=== PATIENT | male | born 1955 | race Caucasian/White ===

== ENCOUNTER 2020-09-25 19:11 | Inpatient (IN) | payer OTHER ==
[2020-09-25 19:39] VITALS: BMI 27.4
[2020-09-25] MEDS ORDERED: oxyCODONE HCL 5 MG TABLET PO ONE (22:07)
[2020-09-25] MEDS ORDERED: oxyCODONE HCL 5 MG TABLET ONE (22:23)
[2020-09-25 22:33] LABS: BASO % 0.1 % (0-2.0); EOS % 0.1 % (0-4.5); HEMATOCRIT 23.1 % (35.4-49); LYMPH % 10.3 % (8-40); MCHC 34.5 g/dl (32.0-35.9); MEAN CELL VOLUME 104.1 fl (80-96); MEAN PLT VOLUME 9.4 fl (7.5-11.1); MONO % 14.8 % (3.8-10.2); NEUT % 74.7 % (42.8-82.8); PLATELET COUNT 60 K/MM3 (134-434); RBC 2.22 M/mm3 (4.00-5.60); RDW 12.9 % (11.9-15.9); WHITE BLOOD COUNT 4.3 K/mm3 (4.0-10.0)
[2020-09-25 22:40] LABS: INR 1.08 (0.83-1.09); PROTHROMBIN TIME (PATIENT) 13.2 SEC (9.7-13.0)
[2020-09-25 22:42] LABS: ACTIVATED PTT 28.6 SECONDS (25.2-36.5)
[2020-09-25 22:51] LABS: URINE APPEARANCE Clear; URINE BILIRUBIN Negative (NEGATIVE); URINE COLOR Yellow; URINE GLUCOSE (UA) Negative (NEGATIVE); URINE KETONE Negative (NEGATIVE); URINE LEUK ESTERASE Negative (NEGATIVE); URINE NITRITE Negative (NEGATIVE); URINE PROTEIN Negative (NEGATIVE); URINE UROBILINOGEN 0.2 mg/dL (0.2-1.0)
[2020-09-25 22:53] LABS: POTASSIUM 4.5 mmol/L (3.5-5.1)
[2020-09-25 22:54] LABS: CALCIUM 8.7 mg/dL (8.5-10.1)
[2020-09-25 22:55] LABS: ALBUMIN 3.7 g/dl (3.4-5.0); BLOOD UREA NITROGEN 51.4 mg/dL (7-18)
[2020-09-25 22:59] LABS: CREATININE 1.7 mg/dL (0.55-1.3)
[2020-09-25 23:00] LABS: BILIRUBIN,TOTAL 1.4 mg/dL (0.2-1); TOT PROT 6.2 g/dl (6.4-8.2)
[2020-09-25 23:04] LABS: EPI CELLS 4.3 /uL (0-25.1); URINE RBC 8.2 /uL (0-23.9)
[2020-09-25 23:05] LABS: HYALINE CASTS 1.15 /uL (0-3.1)
[2020-09-25] MEDS ORDERED: LACTATED RINGERS SOLUTION 1000 ML INFUS.BAG IV ONE ×2 (23:07→23:08)
[2020-09-25] MEDS ORDERED: ASPIRIN 81 MG CHEWABLE TABLETS PO ONE (23:18)
[2020-09-25] MEDS ORDERED: ASPIRIN 81 MG CHEWABLE TABLETS ONE (23:19)
[2020-09-25 23:21] LABS: PLATELET ESTIMATE MOD DECREASED
[2020-09-26] MEDS ORDERED: ACETAMINOPHEN 1000 MG/100 ML VIAL (NON FORMULARY) IVPB PRN (01:10)
[2020-09-26] MEDS ORDERED: oxyCODONE HCL 5 MG TABLET ONE ×3 (06:03→18:42)
[2020-09-26] MEDS: oxyCODONE HCL 5 MG TABLET PO PRN ×2 (06:06→18:45)
[2020-09-26] MEDS: INSULIN SLIDING SCALE (NOVOLOG) 1 VIAL SQ SCH ×3 (08:11→17:54)
[2020-09-26] MEDS: SODIUM CHLORIDE 1,000 ML IV SCH (17:54)
[2020-09-26] MEDS ORDERED: risperiDONE 0.5 MG TABLET ONE (21:26)
[2020-09-26] MEDS ORDERED: ATORVASTATIN CA 10 MG TABLET (FP) ONE (21:26)
[2020-09-26] MEDS: risperiDONE 2 MG TABLET PO SCH (21:47)
[2020-09-26] MEDS: INSULIN (LEVEMIR) 100 UNITS/ML UNITS SQ SCH (21:47)
[2020-09-26] MEDS: ATORVASTATIN CA 10 MG TABLET (FP) PO SCH (21:48)
[2020-09-26] MEDS: URSODIOL 300 MG CAPSULE PO SCH (21:48)
[2020-09-27] MEDS ORDERED: oxyCODONE HCL 5 MG TABLET ONE (01:48)
[2020-09-27] MEDS: oxyCODONE HCL 5 MG TABLET PO PRN ×2 (01:55→22:08)
[2020-09-27] MEDS: INSULIN (LEVEMIR) 100 UNITS/ML UNITS SQ SCH ×2 (06:20→22:15)
[2020-09-27] MEDS: INSULIN SLIDING SCALE (NOVOLOG) 1 VIAL SQ SCH ×3 (06:22→17:11)
[2020-09-27] MEDS ORDERED: TAMSULOSIN HCL 0.4 MG CAP ONE (08:03)
[2020-09-27] MEDS ORDERED: risperiDONE 0.5 MG TABLET ONE (08:03)
[2020-09-27 08:04] LABS: BASO % 0.1 % (0-2.0); EOS % 0.1 % (0-4.5); HEMOGLOBIN 7.5 GM/dL (11.7-16.9); LYMPH % 10.3 % (8-40); MCH 36.8 pg (25.7-33.7); MCHC 35.6 g/dl (32.0-35.9); MEAN CELL VOLUME 103.6 fl (80-96); MEAN PLT VOLUME 9.2 fl (7.5-11.1); MONO % 16.9 % (3.8-10.2); NEUT % 72.6 % (42.8-82.8); PLATELET COUNT 82 K/MM3 (134-434); RBC 2.03 M/mm3 (4.00-5.60); RDW 12.7 % (11.9-15.9); WHITE BLOOD COUNT 5.5 K/mm3 (4.0-10.0)
[2020-09-27] MEDS: risperiDONE 1 MG TABLET PO SCH ×2 (08:05→23:37)
[2020-09-27] MEDS: TAMSULOSIN HCL 0.4 MG CAP PO SCH (08:05)
[2020-09-27 08:20] LABS: POTASSIUM 4.9 mmol/L (3.5-5.1)
[2020-09-27 08:23] LABS: ALBUMIN 3.4 g/dl (3.4-5.0); BLOOD UREA NITROGEN 54.9 mg/dL (7-18)
[2020-09-27 08:24] LABS: CALCIUM 8.3 mg/dL (8.5-10.1); MAGNESIUM 2.1 mg/dL (1.8-2.4)
[2020-09-27 08:28] LABS: BILIRUBIN,TOTAL 1.6 mg/dL (0.2-1)
[2020-09-27 08:29] LABS: CREATININE 1.5 mg/dL (0.55-1.3)
[2020-09-27 08:31] LABS: TOT PROT 5.9 g/dl (6.4-8.2)
[2020-09-27] MEDS: ESCITALOPRAM OXALATE 10 MG TABLET PO SCH (10:29)
[2020-09-27] MEDS: URSODIOL 300 MG CAPSULE PO SCH ×2 (10:29→22:08)
[2020-09-27] MEDS: SODIUM CHLORIDE 1,000 ML IV SCH ×2 (16:53→22:10)
[2020-09-27] MEDS ORDERED: ACETAMINOPHEN 325 MG TABLET (FP) PO PRN (18:12)
[2020-09-27] MEDS ORDERED: PT OWN MED DRAWER 7, Y5N ONE (22:03)
[2020-09-27] MEDS: ATORVASTATIN CA 10 MG TABLET (FP) PO SCH (22:08)
[2020-09-27] MEDS: METOPROLOL TARTRATE 25 MG TABLET (FP) PO SCH (22:08)
[2020-09-27] MEDS ORDERED: risperiDONE 1 MG TABLET PO SCH (22:25)
[2020-09-27] MEDS: risperiDONE 2 MG TABLET PO SCH (22:58)
[2020-09-28] MEDS: INSULIN (LEVEMIR) 100 UNITS/ML UNITS SQ SCH ×2 (07:04→22:00)
[2020-09-28] MEDS: INSULIN SLIDING SCALE (NOVOLOG) 1 VIAL SQ SCH ×3 (07:04→17:13)
[2020-09-28 07:28] LABS: BASO % 0.1 % (0-2.0); EOS % 0.1 % (0-4.5); HEMATOCRIT 19.4 % (35.4-49); LYMPH % 9.5 % (8-40); MCH 36.9 pg (25.7-33.7); MCHC 35.8 g/dl (32.0-35.9); MEAN PLT VOLUME 8.6 fl (7.5-11.1); MONO % 12.5 % (3.8-10.2); NEUT % 77.8 % (42.8-82.8); PLATELET COUNT 102 K/MM3 (134-434); RBC 1.89 M/mm3 (4.00-5.60); RDW 12.7 % (11.9-15.9)
[2020-09-28 07:30] LABS: POTASSIUM 5.4 mmol/L (3.5-5.1)
[2020-09-28 07:36] LABS: CALCIUM 7.8 mg/dL (8.5-10.1)
[2020-09-28 07:37] LABS: BLOOD UREA NITROGEN 79.5 mg/dL (7-18)
[2020-09-28 07:40] LABS: CREATININE 2.3 mg/dL (0.55-1.3)
[2020-09-28 07:41] LABS: TOT PROT 5.4 g/dl (6.4-8.2)
[2020-09-28] MEDS ORDERED: PT OWN MED DRAWER 7, Y5N ONE (08:59)
[2020-09-28] MEDS: TAMSULOSIN HCL 0.4 MG CAP PO SCH (09:05)
[2020-09-28] MEDS: METOPROLOL TARTRATE 25 MG TABLET (FP) PO SCH ×2 (09:05→21:57)
[2020-09-28] MEDS: ESCITALOPRAM OXALATE 10 MG TABLET PO SCH (09:05)
[2020-09-28] MEDS: URSODIOL 300 MG CAPSULE PO SCH ×2 (09:05→21:57)
[2020-09-28] MEDS: risperiDONE 1 MG TABLET PO SCH ×2 (10:09→21:57)
[2020-09-28] MEDS: oxyCODONE HCL 5 MG TABLET PO PRN ×2 (12:06→18:47)
[2020-09-28] MEDS ORDERED: SODIUM POLYSTYRENE SULFONATE 15 GM/60 ML BOTTLE PO ONE (14:00)
[2020-09-28] MEDS ORDERED: IRON SUCROSE INJECTION 200 MG in SODIUM CHLORIDE 90 ML IVPB ONE (14:30)
[2020-09-28] MEDS: SILVER SULFADIAZINE 1% TOP CREAM 400 GM JAR TP SCH (16:13)
[2020-09-28] MEDS: SODIUM CHLORIDE 1,000 ML IV SCH (18:50)
[2020-09-28] MEDS: ATORVASTATIN CA 10 MG TABLET (FP) PO SCH (21:57)
[2020-09-29] MEDS: SODIUM CHLORIDE 1,000 ML IV SCH ×3 (05:44→18:27)
[2020-09-29] MEDS: oxyCODONE HCL 5 MG TABLET PO PRN ×2 (05:52→10:47)
[2020-09-29] MEDS: INSULIN (LEVEMIR) 100 UNITS/ML UNITS SQ SCH ×2 (06:03→22:29)
[2020-09-29] MEDS: INSULIN SLIDING SCALE (NOVOLOG) 1 VIAL SQ SCH ×3 (06:03→16:47)
[2020-09-29 08:12] LABS: POTASSIUM 4.4 mmol/L (3.5-5.1)
[2020-09-29 08:15] LABS: CALCIUM 7.5 mg/dL (8.5-10.1)
[2020-09-29 08:16] LABS: BLOOD UREA NITROGEN 84.5 mg/dL (7-18)
[2020-09-29 08:17] LABS: HEMATOCRIT 18.6 % (35.4-49); MCH 36.3 pg (25.7-33.7); MEAN CELL VOLUME 103.9 fl (80-96); MEAN PLT VOLUME 8.7 fl (7.5-11.1); PLATELET COUNT 102 K/MM3 (134-434); RBC 1.79 M/mm3 (4.00-5.60); RDW 12.8 % (11.9-15.9); WHITE BLOOD COUNT 6.5 K/mm3 (4.0-10.0)
[2020-09-29 08:19] LABS: CREATININE 1.7 mg/dL (0.55-1.3)
[2020-09-29 08:32] LABS: HEMOGLOBIN 6.5 GM/dL (11.7-16.9)
[2020-09-29] MEDS ORDERED: PT OWN MED DRAWER 7, Y5N ONE (08:34)
[2020-09-29] MEDS: TAMSULOSIN HCL 0.4 MG CAP PO SCH (08:39)
[2020-09-29] MEDS ORDERED: MULTIVIT-MINERALS ORAL LIQUID PO SCH (10:00)
[2020-09-29] MEDS: URSODIOL 300 MG CAPSULE PO SCH ×2 (10:47→22:26)
[2020-09-29] MEDS: METOPROLOL TARTRATE 25 MG TABLET (FP) PO SCH ×2 (10:47→22:28)
[2020-09-29] MEDS: ESCITALOPRAM OXALATE 10 MG TABLET PO SCH (10:47)
[2020-09-29] MEDS: risperiDONE 1 MG TABLET PO SCH ×2 (10:47→22:28)
[2020-09-29] MEDS: SILVER SULFADIAZINE 1% TOP CREAM 400 GM JAR TP SCH (10:49)
[2020-09-29] MEDS: ACETAMINOPHEN 325 MG TABLET (FP) PO PRN (22:26)
[2020-09-29] MEDS: ATORVASTATIN CA 10 MG TABLET (FP) PO SCH (22:26)
[2020-09-30] MEDS: oxyCODONE HCL 5 MG TABLET PO PRN ×2 (02:45→21:20)
[2020-09-30] MEDS: INSULIN (LEVEMIR) 100 UNITS/ML UNITS SQ SCH ×2 (06:52→21:24)
[2020-09-30] MEDS: INSULIN SLIDING SCALE (NOVOLOG) 1 VIAL SQ SCH ×3 (06:52→17:51)
[2020-09-30 09:26] LABS: POTASSIUM 4.1 mmol/L (3.5-5.1)
[2020-09-30 09:28] LABS: EOS % 0.2 % (0-4.5); HEMATOCRIT 19.7 % (35.4-49); LYMPH % 9.5 % (8-40); MCH 36.4 pg (25.7-33.7); MCHC 34.4 g/dl (32.0-35.9); MEAN CELL VOLUME 105.7 fl (80-96); MEAN PLT VOLUME 8.7 fl (7.5-11.1); MONO % 11.5 % (3.8-10.2); NEUT % 78.8 % (42.8-82.8); PLATELET COUNT 107 K/MM3 (134-434); RBC 1.87 M/mm3 (4.00-5.60); RDW 13.2 % (11.9-15.9)
[2020-09-30 09:30] LABS: ALBUMIN 2.4 g/dl (3.4-5.0); CALCIUM 7.9 mg/dL (8.5-10.1)
[2020-09-30 09:31] LABS: BLOOD UREA NITROGEN 65.3 mg/dL (7-18)
[2020-09-30 09:34] LABS: CREATININE 1.4 mg/dL (0.55-1.3)
[2020-09-30 09:35] LABS: BILIRUBIN,TOTAL 2.3 mg/dL (0.2-1); TOT PROT 5.1 g/dl (6.4-8.2)
[2020-09-30 09:41] LABS: HEMOGLOBIN 6.8 GM/dL (11.7-16.9)
[2020-09-30] MEDS ORDERED: SILVER SULFADIAZINE 1% TOP CREAM 400 GM JAR TP SCH (10:00)
[2020-09-30] MEDS: ESCITALOPRAM OXALATE 10 MG TABLET PO SCH (11:02)
[2020-09-30] MEDS: TAMSULOSIN HCL 0.4 MG CAP PO SCH (11:02)
[2020-09-30] MEDS: risperiDONE 1 MG TABLET PO SCH ×2 (11:02→20:27)
[2020-09-30] MEDS: URSODIOL 300 MG CAPSULE PO SCH ×2 (11:03→21:23)
[2020-09-30] MEDS: METOPROLOL TARTRATE 25 MG TABLET (FP) PO SCH ×2 (11:03→21:03)
[2020-09-30] MEDS: ACETAMINOPHEN 325 MG TABLET (FP) PO PRN ×2 (12:38→21:22)
[2020-09-30] MEDS: COLLAGENASE CLOSTRIDIUM HIST. 30 GRAMS TUBE TP SCH (12:39)
[2020-09-30] MEDS ORDERED: IRON SUCROSE INJECTION 200 MG in SODIUM CHLORIDE 90 ML IVPB ONE (17:00)
[2020-09-30] MEDS: MULTIVIT-MINERALS ORAL LIQUID PO SCH (17:49)
[2020-09-30] MEDS: SODIUM CHLORIDE 1,000 ML IV SCH (17:52)
[2020-09-30] MEDS: ATORVASTATIN CA 10 MG TABLET (FP) PO SCH (21:03)
[2020-10-01] MEDS: ACETAMINOPHEN 325 MG TABLET (FP) PO PRN ×2 (03:48→23:10)
[2020-10-01] MEDS: oxyCODONE HCL 5 MG TABLET PO PRN ×2 (03:50→13:49)
[2020-10-01] MEDS: INSULIN (LEVEMIR) 100 UNITS/ML UNITS SQ SCH ×2 (06:23→21:53)
[2020-10-01] MEDS: INSULIN SLIDING SCALE (NOVOLOG) 1 VIAL SQ SCH ×3 (07:51→17:28)
[2020-10-01 07:52] LABS: HEMATOCRIT 18.1 % (35.4-49); HEMOGLOBIN 6.3 GM/dL (11.7-16.9); MCHC 34.9 g/dl (32.0-35.9); MEAN CELL VOLUME 103.2 fl (80-96); MEAN PLT VOLUME 8.1 fl (7.5-11.1); PLATELET COUNT 124 K/MM3 (134-434); RBC 1.75 M/mm3 (4.00-5.60); RDW 12.9 % (11.9-15.9)
[2020-10-01 08:23] LABS: WHITE BLOOD COUNT 7.7 K/mm3 (4.0-10.0)
[2020-10-01] MEDS: COLLAGENASE CLOSTRIDIUM HIST. 30 GRAMS TUBE TP SCH (10:00)
[2020-10-01] MEDS: TAMSULOSIN HCL 0.4 MG CAP PO SCH (10:06)
[2020-10-01] MEDS: METOPROLOL TARTRATE 25 MG TABLET (FP) PO SCH ×2 (10:06→21:46)
[2020-10-01] MEDS: ESCITALOPRAM OXALATE 10 MG TABLET PO SCH (10:06)
[2020-10-01] MEDS: risperiDONE 1 MG TABLET PO SCH (10:06)
[2020-10-01] MEDS: MULTIVIT-MINERALS ORAL LIQUID PO SCH (10:07)
[2020-10-01] MEDS: URSODIOL 300 MG CAPSULE PO SCH ×2 (10:07→21:42)
[2020-10-01] MEDS: SODIUM CHLORIDE 1,000 ML IV SCH ×2 (14:05→21:41)
[2020-10-01] MEDS: ATORVASTATIN CA 10 MG TABLET (FP) PO SCH (21:42)
[2020-10-02] MEDS: INSULIN (LEVEMIR) 100 UNITS/ML UNITS SQ SCH ×2 (06:13→22:18)
[2020-10-02] MEDS: INSULIN SLIDING SCALE (NOVOLOG) 1 VIAL SQ SCH ×3 (06:13→17:00)
[2020-10-02 09:37] LABS: HEMATOCRIT 17.4 % (35.4-49); MCH 35.8 pg (25.7-33.7); MCHC 34.4 g/dl (32.0-35.9); MEAN CELL VOLUME 104.2 fl (80-96); MEAN PLT VOLUME 7.7 fl (7.5-11.1); PLATELET COUNT 120 K/MM3 (134-434); RBC 1.67 M/mm3 (4.00-5.60); RDW 13.6 % (11.9-15.9); WHITE BLOOD COUNT 8.4 K/mm3 (4.0-10.0)
[2020-10-02] MEDS: ESCITALOPRAM OXALATE 10 MG TABLET PO SCH (10:41)
[2020-10-02] MEDS: MULTIVIT-MINERALS ORAL LIQUID PO SCH (10:41)
[2020-10-02] MEDS: METOPROLOL TARTRATE 25 MG TABLET (FP) PO SCH ×2 (10:41→22:18)
[2020-10-02] MEDS: URSODIOL 300 MG CAPSULE PO SCH ×2 (10:42→22:54)
[2020-10-02] MEDS: SODIUM CHLORIDE 1,000 ML IV SCH ×2 (10:42→18:52)
[2020-10-02] MEDS: TAMSULOSIN HCL 0.4 MG CAP PO SCH (10:42)
[2020-10-02] MEDS: COLLAGENASE CLOSTRIDIUM HIST. 30 GRAMS TUBE TP SCH (10:42)
[2020-10-02] MEDS ORDERED: FOLIC ACID 5 MG/1 ML SQ ONE (11:00)
[2020-10-02] MEDS ORDERED: IRON SUCROSE INJECTION 200 MG in SODIUM CHLORIDE 90 ML IVPB ONE (11:30)
[2020-10-02] MEDS: ACETAMINOPHEN 325 MG TABLET (FP) PO PRN ×3 (14:11→23:39)
[2020-10-02] MEDS: ATORVASTATIN CA 10 MG TABLET (FP) PO SCH (22:18)
[2020-10-03] MEDS: oxyCODONE HCL 5 MG TABLET PO PRN ×2 (03:08→20:10)
[2020-10-03] MEDS: INSULIN SLIDING SCALE (NOVOLOG) 1 VIAL SQ SCH ×3 (06:00→17:25)
[2020-10-03] MEDS: INSULIN (LEVEMIR) 100 UNITS/ML UNITS SQ SCH ×2 (06:00→22:02)
[2020-10-03] MEDS: SODIUM CHLORIDE 1,000 ML IV SCH ×2 (06:01→17:26)
[2020-10-03] MEDS: TAMSULOSIN HCL 0.4 MG CAP PO SCH (09:27)
[2020-10-03] MEDS: METOPROLOL TARTRATE 25 MG TABLET (FP) PO SCH ×2 (09:27→22:04)
[2020-10-03] MEDS: ESCITALOPRAM OXALATE 10 MG TABLET PO SCH (09:27)
[2020-10-03] MEDS: COLLAGENASE CLOSTRIDIUM HIST. 30 GRAMS TUBE TP SCH (09:28)
[2020-10-03] MEDS: MULTIVIT-MINERALS ORAL LIQUID PO SCH (09:28)
[2020-10-03] MEDS: URSODIOL 300 MG CAPSULE PO SCH ×2 (09:28→22:08)
[2020-10-03] MEDS: ACETAMINOPHEN 325 MG TABLET (FP) PO PRN (11:36)
[2020-10-03] MEDS ORDERED: PIPERACILLIN/TAZOB 3.375 GM 3.375 GM in DEXTROSE 5%-WATER - 50 ML IVPB ONE (13:00)
[2020-10-03] MEDS ORDERED: VANCOMYCIN 1 GRAM (PRE-DOCKED) 1,000 MG/250 ML BAG IVPB ONE (15:57)
[2020-10-03 16:56] LABS: BASO % 0.1 % (0-2.0); EOS % 0.2 % (0-4.5); HEMATOCRIT 19.9 % (35.4-49); LYMPH % 9.3 % (8-40); MCH 34.7 pg (25.7-33.7); MCHC 32.9 g/dl (32.0-35.9); MEAN CELL VOLUME 105.3 fl (80-96); MEAN PLT VOLUME 8.8 fl (7.5-11.1); MONO % 8.5 % (3.8-10.2); NEUT % 81.9 % (42.8-82.8); PLATELET COUNT 178 K/MM3 (134-434); RBC 1.89 M/mm3 (4.00-5.60); RDW 13.8 % (11.9-15.9)
[2020-10-03 17:00] LABS: HEMOGLOBIN 6.5 GM/dL (11.7-16.9)
[2020-10-03 17:22] LABS: POTASSIUM 4.4 mmol/L (3.5-5.1)
[2020-10-03] MEDS: DEXAMETHASONE SOD PHOSPHATE 10 MG/1 ML VIAL IVPUSH SCH (17:25)
[2020-10-03 17:30] LABS: ALBUMIN 1.9 g/dl (3.4-5.0)
[2020-10-03 17:33] LABS: CREATININE 1.1 mg/dL (0.55-1.3)
[2020-10-03 17:34] LABS: BILIRUBIN,TOTAL 1.5 mg/dL (0.2-1)
[2020-10-03 17:35] LABS: TOT PROT 4.4 g/dl (6.4-8.2)
[2020-10-03 17:47] LABS: CALCIUM 6.9 mg/dL (8.5-10.1)
[2020-10-03 17:59] LABS: ANISOCYTOSIS 2+; PLATELET ESTIMATE NORMAL
[2020-10-03 18:09] LABS: MACROCYTOSIS 2+
[2020-10-03] MEDS: PIPERACILLIN/TAZOB 3.375 GM 3.375 GM in DEXTROSE 5%-WATER - 50 ML IVPB SCH (18:56)
[2020-10-03] MEDS: FUROSEMIDE 40 MG/4 ML INJECTABLE VIAL IVPUSH SCH (20:10)
[2020-10-03] MEDS: ATORVASTATIN CA 10 MG TABLET (FP) PO SCH (22:04)
[2020-10-04] MEDS ORDERED: DEXTROSE 5%-WATER - 50 ML IVPB ONE ×3 (00:58→16:41)
[2020-10-04] MEDS ORDERED: PIPERACILLIN/TAZOBACTAM 3.375 GM VIAL IVPB ONE ×3 (00:58→16:41)
[2020-10-04] MEDS: PIPERACILLIN/TAZOB 3.375 GM 3.375 GM in DEXTROSE 5%-WATER - 50 ML IVPB SCH ×3 (01:11→17:00)
[2020-10-04] MEDS: INSULIN (LEVEMIR) 100 UNITS/ML UNITS SQ SCH ×2 (06:23→22:03)
[2020-10-04] MEDS: INSULIN SLIDING SCALE (NOVOLOG) 1 VIAL SQ SCH ×3 (06:24→16:37)
[2020-10-04] MEDS ORDERED: PT OWN MED DRAWER 7, Y5N ONE ×3 (09:35→19:29)
[2020-10-04] MEDS: FUROSEMIDE 40 MG/4 ML INJECTABLE VIAL IVPUSH SCH (09:41)
[2020-10-04] MEDS: ESCITALOPRAM OXALATE 10 MG TABLET PO SCH (09:42)
[2020-10-04] MEDS: METOPROLOL TARTRATE 25 MG TABLET (FP) PO SCH ×2 (09:42→22:02)
[2020-10-04] MEDS: URSODIOL 300 MG CAPSULE PO SCH ×2 (09:42→22:02)
[2020-10-04] MEDS: MULTIVIT-MINERALS ORAL LIQUID PO SCH (09:42)
[2020-10-04] MEDS: DEXAMETHASONE SOD PHOSPHATE 10 MG/1 ML VIAL IVPUSH SCH (09:42)
[2020-10-04] MEDS: TAMSULOSIN HCL 0.4 MG CAP PO SCH (09:42)
[2020-10-04] MEDS: COLLAGENASE CLOSTRIDIUM HIST. 30 GRAMS TUBE TP SCH (11:16)
[2020-10-04 11:19] LABS: N-TERMINAL BNP > 35000.0 pg/ml (5-125)
[2020-10-04] MEDS: LISINOPRIL 5 MG TABLET PO SCH (14:22)
[2020-10-04] MEDS: ACETAMINOPHEN 325 MG TABLET (FP) PO PRN (18:15)
[2020-10-04] MEDS: ATORVASTATIN CA 10 MG TABLET (FP) PO SCH (22:03)
[2020-10-04] MEDS ORDERED: oxyCODONE HCL 5 MG TABLET PO ONE (23:50)
[2020-10-05] MEDS ORDERED: DEXTROSE 5%-WATER - 50 ML IVPB ONE ×3 (00:19→16:41)
[2020-10-05] MEDS ORDERED: PIPERACILLIN/TAZOBACTAM 3.375 GM VIAL IVPB ONE ×3 (00:19→16:41)
[2020-10-05] MEDS: PIPERACILLIN/TAZOB 3.375 GM 3.375 GM in DEXTROSE 5%-WATER - 50 ML IVPB SCH ×3 (02:00→17:06)
[2020-10-05] MEDS: INSULIN (LEVEMIR) 100 UNITS/ML UNITS SQ SCH ×2 (06:49→21:47)
[2020-10-05] MEDS: INSULIN SLIDING SCALE (NOVOLOG) 1 VIAL SQ SCH ×3 (06:50→16:34)
[2020-10-05 07:54] LABS: HEMATOCRIT 20.9 % (35.4-49); HEMOGLOBIN 7.1 GM/dL (11.7-16.9); LYMPH % 4.6 % (8-40); MCH 35.3 pg (25.7-33.7); MEAN CELL VOLUME 103.8 fl (80-96); MEAN PLT VOLUME 9.3 fl (7.5-11.1); NEUT % 89.4 % (42.8-82.8); PLATELET COUNT 177 K/MM3 (134-434); RBC 2.02 M/mm3 (4.00-5.60); RDW 13.9 % (11.9-15.9); WHITE BLOOD COUNT 11.5 K/mm3 (4.0-10.0)
[2020-10-05 08:18] LABS: POTASSIUM 5.1 mmol/L (3.5-5.1)
[2020-10-05 08:28] LABS: CALCIUM 7.8 mg/dL (8.5-10.1)
[2020-10-05 08:30] LABS: ALBUMIN 2.1 g/dl (3.4-5.0)
[2020-10-05 08:33] LABS: BILIRUBIN,TOTAL 1.7 mg/dL (0.2-1)
[2020-10-05 08:34] LABS: CREATININE 1.7 mg/dL (0.55-1.3); TOT PROT 4.8 g/dl (6.4-8.2)
[2020-10-05] MEDS: FUROSEMIDE 40 MG/4 ML INJECTABLE VIAL IVPUSH SCH (09:05)
[2020-10-05] MEDS: DEXAMETHASONE SOD PHOSPHATE 10 MG/1 ML VIAL IVPUSH SCH (09:06)
[2020-10-05] MEDS: METOPROLOL TARTRATE 25 MG TABLET (FP) PO SCH ×2 (09:06→21:46)
[2020-10-05] MEDS: TAMSULOSIN HCL 0.4 MG CAP PO SCH (09:06)
[2020-10-05] MEDS: ESCITALOPRAM OXALATE 10 MG TABLET PO SCH (09:06)
[2020-10-05] MEDS: LISINOPRIL 5 MG TABLET PO SCH (09:06)
[2020-10-05] MEDS ORDERED: PT OWN MED DRAWER 7, Y5N ONE ×2 (09:07→21:25)
[2020-10-05] MEDS: URSODIOL 300 MG CAPSULE PO SCH ×2 (09:07→21:46)
[2020-10-05] MEDS: COLLAGENASE CLOSTRIDIUM HIST. 30 GRAMS TUBE TP SCH (09:07)
[2020-10-05] MEDS: MULTIVIT-MINERALS ORAL LIQUID PO SCH (09:07)
[2020-10-05] MEDS: ATORVASTATIN CA 10 MG TABLET (FP) PO SCH (21:46)
[2020-10-06] MEDS ORDERED: DEXTROSE 5%-WATER - 50 ML IVPB ONE ×3 (00:09→16:57)
[2020-10-06] MEDS ORDERED: PIPERACILLIN/TAZOBACTAM 3.375 GM VIAL IVPB ONE ×3 (00:09→16:57)
[2020-10-06] MEDS: PIPERACILLIN/TAZOB 3.375 GM 3.375 GM in DEXTROSE 5%-WATER - 50 ML IVPB SCH ×3 (01:07→17:32)
[2020-10-06] MEDS: ACETAMINOPHEN 325 MG TABLET (FP) PO PRN (01:25)
[2020-10-06] MEDS: INSULIN (LEVEMIR) 100 UNITS/ML UNITS SQ SCH ×2 (06:41→21:54)
[2020-10-06] MEDS: INSULIN SLIDING SCALE (NOVOLOG) 1 VIAL SQ SCH ×3 (06:41→17:32)
[2020-10-06] MEDS ORDERED: PT OWN MED DRAWER 7, Y5N ONE ×2 (10:13→20:30)
[2020-10-06] MEDS: ESCITALOPRAM OXALATE 10 MG TABLET PO SCH (10:16)
[2020-10-06] MEDS: URSODIOL 300 MG CAPSULE PO SCH ×2 (10:16→22:19)
[2020-10-06] MEDS: METOPROLOL TARTRATE 25 MG TABLET (FP) PO SCH ×2 (10:17→21:03)
[2020-10-06] MEDS: LISINOPRIL 5 MG TABLET PO SCH (10:17)
[2020-10-06] MEDS: DEXAMETHASONE SOD PHOSPHATE 10 MG/1 ML VIAL IVPUSH SCH (10:18)
[2020-10-06] MEDS: TAMSULOSIN HCL 0.4 MG CAP PO SCH (10:18)
[2020-10-06] MEDS: MULTIVIT-MINERALS ORAL LIQUID PO SCH (10:18)
[2020-10-06] MEDS: FUROSEMIDE 40 MG/4 ML INJECTABLE VIAL IVPUSH SCH (10:18)
[2020-10-06] MEDS ORDERED: INSULIN (NOVOLOG) ASPART 100 UNITS/ML 10ML VIAL ONE (11:41)
[2020-10-06] MEDS: COLLAGENASE CLOSTRIDIUM HIST. 30 GRAMS TUBE TP SCH (12:24)
[2020-10-06] MEDS: PANTOPRAZOLE 20 MG TABLET PO SCH (13:39)
[2020-10-06] MEDS ORDERED: PATIENT'S OWN MEDICATION (NON-FORMULARY) (Melatonin/Pyridoxine Hcl (B6) [Melatonin 3 Mg Ta PO SCH (20:15)
[2020-10-06] MEDS: risperiDONE 1 MG TABLET PO SCH (21:03)
[2020-10-06] MEDS: MELATONIN 1 MG TABLET PO SCH (21:03)
[2020-10-06] MEDS: ATORVASTATIN CA 10 MG TABLET (FP) PO SCH (21:04)
[2020-10-07] MEDS ORDERED: DEXTROSE 5%-WATER - 50 ML IVPB ONE ×3 (00:31→17:38)
[2020-10-07] MEDS ORDERED: PIPERACILLIN/TAZOBACTAM 3.375 GM VIAL IVPB ONE ×3 (00:31→17:38)
[2020-10-07] MEDS: PIPERACILLIN/TAZOB 3.375 GM 3.375 GM in DEXTROSE 5%-WATER - 50 ML IVPB SCH ×3 (01:15→18:17)
[2020-10-07] MEDS: INSULIN SLIDING SCALE (NOVOLOG) 1 VIAL SQ SCH ×3 (06:35→18:23)
[2020-10-07] MEDS: INSULIN (LEVEMIR) 100 UNITS/ML UNITS SQ SCH ×2 (06:35→21:45)
[2020-10-07 08:01] LABS: BASO % 0.1 % (0-2.0); EOS % 0.2 % (0-4.5); HEMATOCRIT 24.3 % (35.4-49); HEMOGLOBIN 8.4 GM/dL (11.7-16.9); LYMPH % 13.7 % (8-40); MCH 36.2 pg (25.7-33.7); MCHC 34.6 g/dl (32.0-35.9); MEAN CELL VOLUME 104.5 fl (80-96); MEAN PLT VOLUME 8.8 fl (7.5-11.1); MONO % 6.5 % (3.8-10.2); NEUT % 79.5 % (42.8-82.8); PLATELET COUNT 170 K/MM3 (134-434); RBC 2.33 M/mm3 (4.00-5.60); RDW 14.5 % (11.9-15.9); WHITE BLOOD COUNT 10.8 K/mm3 (4.0-10.0)
[2020-10-07 08:06] LABS: POTASSIUM 4.5 mmol/L (3.5-5.1)
[2020-10-07 08:12] LABS: CALCIUM 8.1 mg/dL (8.5-10.1)
[2020-10-07 08:13] LABS: ALBUMIN 2.2 g/dl (3.4-5.0); BLOOD UREA NITROGEN 44.7 mg/dL (7-18)
[2020-10-07 08:16] LABS: CREATININE 1.4 mg/dL (0.55-1.3)
[2020-10-07 08:18] LABS: BILIRUBIN,TOTAL 1.6 mg/dL (0.2-1); TOT PROT 4.9 g/dl (6.4-8.2)
[2020-10-07] MEDS: FUROSEMIDE 40 MG/4 ML INJECTABLE VIAL IVPUSH SCH (10:55)
[2020-10-07] MEDS: METOPROLOL TARTRATE 25 MG TABLET (FP) PO SCH ×2 (10:56→21:29)
[2020-10-07] MEDS: PANTOPRAZOLE 20 MG TABLET PO SCH (10:56)
[2020-10-07] MEDS: TAMSULOSIN HCL 0.4 MG CAP PO SCH (10:56)
[2020-10-07] MEDS: ESCITALOPRAM OXALATE 10 MG TABLET PO SCH (10:56)
[2020-10-07] MEDS: DEXAMETHASONE SOD PHOSPHATE 10 MG/1 ML VIAL IVPUSH SCH (10:56)
[2020-10-07] MEDS: LISINOPRIL 5 MG TABLET PO SCH (10:56)
[2020-10-07] MEDS: URSODIOL 300 MG CAPSULE PO SCH ×2 (10:57→21:29)
[2020-10-07] MEDS: MULTIVIT-MINERALS ORAL LIQUID PO SCH (10:57)
[2020-10-07] MEDS: COLLAGENASE CLOSTRIDIUM HIST. 30 GRAMS TUBE TP SCH (12:00)
[2020-10-07] MEDS: ASCORBIC ACID 500 MG TABLET (FP) PO SCH (17:51)
[2020-10-07] MEDS: ZINC SULFATE 220 MG CAPSULE (FP) PO SCH (17:51)
[2020-10-07] MEDS ORDERED: PT OWN MED DRAWER 7, Y5N ONE (20:46)
[2020-10-07] MEDS: ATORVASTATIN CA 10 MG TABLET (FP) PO SCH (21:29)
[2020-10-07] MEDS: risperiDONE 1 MG TABLET PO SCH (21:29)
[2020-10-07] MEDS: MELATONIN 1 MG TABLET PO SCH (21:29)
[2020-10-08] MEDS ORDERED: PIPERACILLIN/TAZOBACTAM 3.375 GM VIAL IVPB ONE ×3 (00:53→16:53)
[2020-10-08] MEDS ORDERED: DEXTROSE 5%-WATER - 50 ML IVPB ONE ×3 (00:54→16:54)
[2020-10-08] MEDS: PIPERACILLIN/TAZOB 3.375 GM 3.375 GM in DEXTROSE 5%-WATER - 50 ML IVPB SCH ×3 (01:05→17:14)
[2020-10-08] MEDS: INSULIN SLIDING SCALE (NOVOLOG) 1 VIAL SQ SCH ×3 (06:41→17:14)
[2020-10-08] MEDS: INSULIN (LEVEMIR) 100 UNITS/ML UNITS SQ SCH ×2 (07:30→22:04)
[2020-10-08] MEDS: TAMSULOSIN HCL 0.4 MG CAP PO SCH (11:03)
[2020-10-08] MEDS: METOPROLOL TARTRATE 25 MG TABLET (FP) PO SCH ×2 (11:05→22:04)
[2020-10-08] MEDS: ASCORBIC ACID 500 MG TABLET (FP) PO SCH (11:05)
[2020-10-08] MEDS: ESCITALOPRAM OXALATE 10 MG TABLET PO SCH (11:05)
[2020-10-08] MEDS: PANTOPRAZOLE 20 MG TABLET PO SCH (11:05)
[2020-10-08] MEDS: LISINOPRIL 5 MG TABLET PO SCH (11:05)
[2020-10-08] MEDS: ZINC SULFATE 220 MG CAPSULE (FP) PO SCH (11:05)
[2020-10-08] MEDS: MULTIVIT-MINERALS ORAL LIQUID PO SCH (11:06)
[2020-10-08] MEDS: DEXAMETHASONE SOD PHOSPHATE 10 MG/1 ML VIAL IVPUSH SCH (11:06)
[2020-10-08] MEDS: URSODIOL 300 MG CAPSULE PO SCH ×2 (11:06→22:03)
[2020-10-08] MEDS: FUROSEMIDE 40 MG/4 ML INJECTABLE VIAL IVPUSH SCH (11:06)
[2020-10-08] MEDS: COLLAGENASE CLOSTRIDIUM HIST. 30 GRAMS TUBE TP SCH (11:07)
[2020-10-08] MEDS: risperiDONE 1 MG TABLET PO SCH (22:04)
[2020-10-08] MEDS: MELATONIN 1 MG TABLET PO SCH (22:04)
[2020-10-08] MEDS: ATORVASTATIN CA 10 MG TABLET (FP) PO SCH (22:04)
[2020-10-09] MEDS ORDERED: DEXTROSE 5%-WATER - 50 ML IVPB ONE ×3 (00:56→18:15)
[2020-10-09] MEDS ORDERED: PIPERACILLIN/TAZOBACTAM 3.375 GM VIAL IVPB ONE ×3 (00:56→18:15)
[2020-10-09] MEDS: PIPERACILLIN/TAZOB 3.375 GM 3.375 GM in DEXTROSE 5%-WATER - 50 ML IVPB SCH ×3 (03:11→19:38)
[2020-10-09] MEDS: INSULIN (LEVEMIR) 100 UNITS/ML UNITS SQ SCH ×2 (06:43→22:01)
[2020-10-09] MEDS: INSULIN SLIDING SCALE (NOVOLOG) 1 VIAL SQ SCH ×3 (06:43→16:44)
[2020-10-09] MEDS ORDERED: PT OWN MED DRAWER 7, Y5N ONE ×2 (10:47→21:06)
[2020-10-09] MEDS: PANTOPRAZOLE 20 MG TABLET PO SCH (10:57)
[2020-10-09] MEDS: METOPROLOL TARTRATE 25 MG TABLET (FP) PO SCH ×2 (10:57→22:01)
[2020-10-09] MEDS: MULTIVIT-MINERALS ORAL LIQUID PO SCH (10:57)
[2020-10-09] MEDS: ZINC SULFATE 220 MG CAPSULE (FP) PO SCH (10:57)
[2020-10-09] MEDS: TAMSULOSIN HCL 0.4 MG CAP PO SCH (10:57)
[2020-10-09] MEDS: URSODIOL 300 MG CAPSULE PO SCH ×2 (10:57→22:01)
[2020-10-09] MEDS: ESCITALOPRAM OXALATE 10 MG TABLET PO SCH (10:57)
[2020-10-09] MEDS: LISINOPRIL 5 MG TABLET PO SCH (10:57)
[2020-10-09] MEDS: DEXAMETHASONE SOD PHOSPHATE 10 MG/1 ML VIAL IVPUSH SCH (10:58)
[2020-10-09] MEDS: FUROSEMIDE 40 MG/4 ML INJECTABLE VIAL IVPUSH SCH (10:58)
[2020-10-09] MEDS: ASCORBIC ACID 500 MG TABLET (FP) PO SCH (10:58)
[2020-10-09] MEDS: ACETAMINOPHEN 325 MG TABLET (FP) PO PRN (14:23)
[2020-10-09] MEDS: COLLAGENASE CLOSTRIDIUM HIST. 30 GRAMS TUBE TP SCH (16:53)
[2020-10-09] MEDS: ATORVASTATIN CA 10 MG TABLET (FP) PO SCH (22:01)
[2020-10-10] MEDS ORDERED: DEXTROSE 5%-WATER - 50 ML IVPB ONE ×3 (01:49→17:32)
[2020-10-10] MEDS ORDERED: PIPERACILLIN/TAZOBACTAM 3.375 GM VIAL IVPB ONE ×3 (01:49→17:32)
[2020-10-10] MEDS: PIPERACILLIN/TAZOB 3.375 GM 3.375 GM in DEXTROSE 5%-WATER - 50 ML IVPB SCH ×2 (02:04→09:53)
[2020-10-10] MEDS: INSULIN SLIDING SCALE (NOVOLOG) 1 VIAL SQ SCH ×3 (06:11→17:42)
[2020-10-10 08:22] LABS: HEMATOCRIT 25.4 % (35.4-49); HEMOGLOBIN 8.9 GM/dL (11.7-16.9); MCH 36.4 pg (25.7-33.7); MCHC 34.9 g/dl (32.0-35.9); MEAN CELL VOLUME 104.2 fl (80-96); MEAN PLT VOLUME 8.6 fl (7.5-11.1); PLATELET COUNT 128 K/MM3 (134-434); RBC 2.44 M/mm3 (4.00-5.60); RDW 16.1 % (11.9-15.9)
[2020-10-10 08:28] LABS: POTASSIUM 3.9 mmol/L (3.5-5.1)
[2020-10-10 08:34] LABS: ALBUMIN 2.2 g/dl (3.4-5.0); BLOOD UREA NITROGEN 25.4 mg/dL (7-18); CALCIUM 7.5 mg/dL (8.5-10.1)
[2020-10-10 08:37] LABS: BILIRUBIN,TOTAL 1.6 mg/dL (0.2-1); TOT PROT 4.6 g/dl (6.4-8.2)
[2020-10-10] MEDS ORDERED: PT OWN MED DRAWER 7, Y5N ONE (09:26)
[2020-10-10] MEDS: FUROSEMIDE 40 MG/4 ML INJECTABLE VIAL IVPUSH SCH (09:50)
[2020-10-10] MEDS: INSULIN (LEVEMIR) 100 UNITS/ML UNITS SQ SCH ×2 (09:51→22:43)
[2020-10-10] MEDS: ESCITALOPRAM OXALATE 10 MG TABLET PO SCH (09:51)
[2020-10-10] MEDS: DEXAMETHASONE SOD PHOSPHATE 10 MG/1 ML VIAL IVPUSH SCH (09:51)
[2020-10-10] MEDS: TAMSULOSIN HCL 0.4 MG CAP PO SCH (09:52)
[2020-10-10] MEDS: PANTOPRAZOLE 20 MG TABLET PO SCH (09:52)
[2020-10-10] MEDS: METOPROLOL TARTRATE 25 MG TABLET (FP) PO SCH ×2 (09:52→22:41)
[2020-10-10] MEDS: LISINOPRIL 5 MG TABLET PO SCH (09:52)
[2020-10-10] MEDS: ASCORBIC ACID 500 MG TABLET (FP) PO SCH (09:52)
[2020-10-10] MEDS: ZINC SULFATE 220 MG CAPSULE (FP) PO SCH (09:52)
[2020-10-10] MEDS: MULTIVIT-MINERALS ORAL LIQUID PO SCH (09:53)
[2020-10-10] MEDS: AMINO ACIDS/PROTEIN HYDROLYS 30 ML LIQUID.PKT PO SCH (09:53)
[2020-10-10] MEDS: URSODIOL 300 MG CAPSULE PO SCH ×2 (09:53→22:41)
[2020-10-10] MEDS: COLLAGENASE CLOSTRIDIUM HIST. 30 GRAMS TUBE TP SCH (09:54)
[2020-10-10] MEDS: ATORVASTATIN CA 10 MG TABLET (FP) PO SCH (22:41)
[2020-10-11 02:23] VITALS: BP 113/65; PULSE 80; TEMP 98.1
[2020-10-11] MEDS: INSULIN SLIDING SCALE (NOVOLOG) 1 VIAL SQ SCH ×2 (06:25→11:48)
[2020-10-11] MEDS: INSULIN (LEVEMIR) 100 UNITS/ML UNITS SQ SCH (06:27)
[2020-10-11] MEDS ORDERED: FUROSEMIDE 40 MG TABLET (FP) PO SCH (10:00)
[2020-10-11] MEDS ORDERED: PT OWN MED DRAWER 7, Y5N ONE (10:45)
[2020-10-11] MEDS: AMINO ACIDS/PROTEIN HYDROLYS 30 ML LIQUID.PKT PO SCH (10:59)
[2020-10-11] MEDS: MULTIVIT-MINERALS ORAL LIQUID PO SCH (11:00)
[2020-10-11] MEDS: LISINOPRIL 5 MG TABLET PO SCH (11:00)
[2020-10-11] MEDS: ESCITALOPRAM OXALATE 10 MG TABLET PO SCH (11:00)
[2020-10-11] MEDS: ZINC SULFATE 220 MG CAPSULE (FP) PO SCH (11:00)
[2020-10-11] MEDS: PANTOPRAZOLE 20 MG TABLET PO SCH (11:00)
[2020-10-11] MEDS: METOPROLOL TARTRATE 25 MG TABLET (FP) PO SCH (11:00)
[2020-10-11] MEDS: TAMSULOSIN HCL 0.4 MG CAP PO SCH (11:00)
[2020-10-11] MEDS: DEXAMETHASONE SOD PHOSPHATE 10 MG/1 ML VIAL IVPUSH SCH (11:00)
[2020-10-11] MEDS: COLLAGENASE CLOSTRIDIUM HIST. 30 GRAMS TUBE TP SCH ×2 (11:00→11:47)
[2020-10-11] MEDS: ASCORBIC ACID 500 MG TABLET (FP) PO SCH (11:00)
[2020-10-11] MEDS: URSODIOL 300 MG CAPSULE PO SCH (11:00)
== END 2020-10-11 14:19 | DRG 811 ==
LOC: JER 19:11 → JERBED 23:21 → J4S 09-27 18:57 → J5WEST-2 09-29 15:16 → J4W 10-03 18:48
PROVIDERS: ADMIT Student in an Organized Health Care Education/Training Program; ATTEND Internal Medicine
DX: D64.9 Anemia, unspecified (principal); J96.01 Acute respiratory failure with hypoxia; J18.9 Pneumonia, unspecified organism; I50.33 Acute on chronic diastolic (congestive) heart failure; S42.302A Unspecified fracture of shaft of humerus, left arm, initial encounter for closed fracture; N17.9 Acute kidney failure, unspecified; I24.8 Other forms of acute ischemic heart disease; E87.1 Hypo-osmolality and hyponatremia; I13.0 Hypertensive heart and chronic kidney disease with heart failure and stage 1 through stage 4 chronic kidney disease, or unspecified chronic kidney disease; E11.22 Type 2 diabetes mellitus with diabetic chronic kidney disease; N18.9 Chronic kidney disease, unspecified; F20.9 Schizophrenia, unspecified; E55.9 Vitamin D deficiency, unspecified; L89.150 Pressure ulcer of sacral region, unstageable; L89.626 Pressure-induced deep tissue damage of left heel; R55 Syncope and collapse; M81.0 Age-related osteoporosis without current pathological fracture; R77.8 Other specified abnormalities of plasma proteins; D69.6 Thrombocytopenia, unspecified; I25.10 Atherosclerotic heart disease of native coronary artery without angina pectoris; R26.81 Unsteadiness on feet; D63.8 Anemia in other chronic diseases classified elsewhere; R94.5 Abnormal results of liver function studies; E11.65 Type 2 diabetes mellitus with hyperglycemia; Y92.098 Other place in other non-institutional residence as the place of occurrence of the external cause; W18.39XA Other fall on same level, initial encounter
CPT/HCPCS: 36415; 70450-TC; 71045-TC-FY; 71046-TC-FY; 72100-TC-FY; 72125-TC; 73030-TC-LT-FY; 73060-TC-LT-FY; 73070-TC-LT-FY; 73200-TC-RT; 76775-TC; 76856-TC; 80048; 80053; 81003; 82272; 82306; 82550; 82553; 82607; 82728; 82746; 82962; 83010; 83036; 83540; 83550; 83615; 83735; 83880; 84100; 84443; 84484; 85025; 85027; 85045; 85379; 85610; 85730; 86140; 86769; 87040; 87081; 87086; 93005; 93010; 93306-TC; 93880-TC; 97116-GP; 97162-GP; 99285-25; C9803; J1100; J1756; J2794; U0003

== ENCOUNTER 2020-10-15 17:08 | Inpatient (IN) | payer OTHER ==
[2020-10-15] MEDS ORDERED: ACETAMINOPHEN INJECTION 100 ML IVPB ONE (18:08)
[2020-10-15] MEDS ORDERED: ACETAMINOPHEN 1000 MG/100 ML VIAL (NON FORMULARY) IVPB ONE (18:13)
[2020-10-15] MEDS ORDERED: VANCOMYCIN 1 GM in D5W (PRE-DOCKED) 1,000 MG/250 ML IVPB ONE (18:19)
[2020-10-15] MEDS ORDERED: PIPERACILLIN/TAZOB 3.375 GM 3.375 GM in DEXTROSE 5%-WATER - 50 ML IVPB ONE (18:19)
[2020-10-15] MEDS ORDERED: SODIUM CHLORIDE 0.9% 500 ML INFUS.BAG IV ONE (18:19)
[2020-10-15] MEDS ORDERED: VANCOMYCIN 1 GRAM (PRE-DOCKED) 1,000 MG/250 ML BAG IVPB ONE (19:14)
[2020-10-15] MEDS ORDERED: PIPERACILLIN/TAZOB 3.375 GM 3.375 GM/50 ML BAG IVPB ONE (19:14)
[2020-10-15 19:15] LABS: BASO % 0.1 % (0-2.0); EOS % 0.3 % (0-4.5); HEMATOCRIT 26.2 % (35.4-49); HEMOGLOBIN 8.7 GM/dL (11.7-16.9); LYMPH % 8.6 % (8-40); MCH 35.9 pg (25.7-33.7); MCHC 33.3 g/dl (32.0-35.9); MEAN CELL VOLUME 107.7 fl (80-96); MEAN PLT VOLUME 8.3 fl (7.5-11.1); MONO % 1.2 % (3.8-10.2); NEUT % 89.8 % (42.8-82.8); PLATELET COUNT 116 K/MM3 (134-434); RBC 2.44 M/mm3 (4.00-5.60); RDW 18.1 % (11.9-15.9); WHITE BLOOD COUNT 2.3 K/mm3 (4.0-10.0)
[2020-10-15 19:22] LABS: INR 1.32 (0.83-1.09); PROTHROMBIN TIME (PATIENT) 16.1 SEC (9.7-13.0)
[2020-10-15 19:25] LABS: ACTIVATED PTT 30.6 SECONDS (25.2-36.5)
[2020-10-15] MEDS ORDERED: LACTATED RINGERS SOLUTION 1000 ML INFUS.BAG IV ONE ×2 (19:33→20:00)
[2020-10-15 19:39] LABS: POTASSIUM 5.5 mmol/L (3.5-5.1)
[2020-10-15 19:41] LABS: ALBUMIN 2.6 g/dl (3.4-5.0); CALCIUM 7.5 mg/dL (8.5-10.1)
[2020-10-15 19:42] LABS: BILIRUBIN,DIRECT 1.2 mg/dL (0.0-0.2)
[2020-10-15 19:45] LABS: CREATININE 4.1 mg/dL (0.55-1.3)
[2020-10-15 19:46] LABS: BILIRUBIN,TOTAL 1.8 mg/dL (0.2-1); TOT PROT 5.6 g/dl (6.4-8.2)
[2020-10-15] MEDS ORDERED: CALCIUM GLUCONATE 10% - 1,000 MG/10 ML VIAL IVPUSH ONE (19:56)
[2020-10-15] MEDS ORDERED: CALCIUM GLUCONATE 10% - 1,000 MG/10 ML VIAL ONE (20:32)
[2020-10-15 21:13] LABS: ANISOCYTOSIS 2+; MACROCYTOSIS 0; OVALOCYTE 1+; PLATELET ESTIMATE DECREASED
[2020-10-15 22:16] LABS: VENOUS BASE EXCESS -1.4 mmol/L (-2-2); VENOUS O2 SATURATION 58.5 % (70-80); VENOUS PCO2 36.3 mmHg (38-52); VENOUS PH 7.418 (7.310-7.410)
[2020-10-15 22:29] LABS: POTASSIUM 5.1 mmol/L (3.5-5.1)
[2020-10-15 22:30] LABS: BLOOD UREA NITROGEN 76.3 mg/dL (7-18); CALCIUM 7.2 mg/dL (8.5-10.1)
[2020-10-15 22:32] LABS: MAGNESIUM 1.7 mg/dL (1.8-2.4)
[2020-10-15 22:34] LABS: CREATININE 4.2 mg/dL (0.55-1.3)
[2020-10-16] MEDS ORDERED: PIPERACILLIN/TAZOB 2.25 GM 2.25 GM in DEXTROSE 5%-WATER - 50 ML IVPB SCH (03:00)
[2020-10-16] MEDS: PIPERACILLIN/TAZOB 2.25 GM 2.25 GM in DEXTROSE 5%-WATER - 50 ML IVPB SCH ×3 (03:11→17:58)
[2020-10-16] MEDS ORDERED: PIPERACILLIN/TAZOB 2.25 GM 2.25 GM/50 ML BAG IVPB ONE ×2 (06:12→08:45)
[2020-10-16] MEDS ORDERED: RAPID SEQUENCE INTUBATION KIT NR ONE (06:36)
[2020-10-16 07:04] LABS: ARTERIAL BLD GAS O2 SATURATION 98.8 mmHg (95-98); ARTERIAL BLOOD GAS BASE EXCESS -6.2 mmol/L (-2-2); ARTERIAL BLOOD GAS PO2 128.7 mmHg (80-100); ARTERIAL BLOOD GAS pH 7.463 (7.350-7.450)
[2020-10-16] MEDS ORDERED: LACTATED RINGERS SOLUTION 1000 ML INFUS.BAG IV ONE (07:35)
[2020-10-16 07:52] LABS: BASO % 0.1 % (0-2.0); HEMOGLOBIN 8.3 GM/dL (11.7-16.9); MCHC 34.5 g/dl (32.0-35.9); MEAN CELL VOLUME 107.2 fl (80-96); MEAN PLT VOLUME 8.4 fl (7.5-11.1); MONO % 1.8 % (3.8-10.2); NEUT % 94.1 % (42.8-82.8); PLATELET COUNT 108 K/MM3 (134-434); RBC 2.24 M/mm3 (4.00-5.60); WHITE BLOOD COUNT 9.3 K/mm3 (4.0-10.0)
[2020-10-16 08:18] LABS: POTASSIUM 5.7 mmol/L (3.5-5.1)
[2020-10-16 08:26] LABS: ALBUMIN 2.3 g/dl (3.4-5.0); CALCIUM 7.4 mg/dL (8.5-10.1)
[2020-10-16 08:27] LABS: BILIRUBIN,TOTAL 2.1 mg/dL (0.2-1)
[2020-10-16 08:28] LABS: TOT PROT 5.2 g/dl (6.4-8.2)
[2020-10-16 08:30] LABS: CREATININE 4.9 mg/dL (0.55-1.3)
[2020-10-16] MEDS ORDERED: ACETAMINOPHEN 1000 MG/100 ML VIAL (NON FORMULARY) IVPB PRN (08:34)
[2020-10-16 09:06] LABS: MAGNESIUM 1.9 mg/dL (1.8-2.4)
[2020-10-16] MEDS ORDERED: SODIUM CHLORIDE 0.9% 500 ML INFUS.BAG IV ONE (09:11)
[2020-10-16 10:01] LABS: ALLENS TEST POSITIVE; ARTERIAL BLD GAS O2 SATURATION 52.2 mmHg (95-98); ARTERIAL BLOOD GAS BASE EXCESS -4.8 mmol/L (-2-2); ARTERIAL BLOOD GAS pH 7.347 (7.350-7.450)
[2020-10-16 10:02] LABS: VENT MODE S/T; VENT RATE 14
[2020-10-16 10:03] LABS: ARTERIAL BLOOD GAS PO2 29.1 mmHg (80-100)
[2020-10-16] MEDS ORDERED: LORazepam 2 MG/ML SDV VIAL IVPUSH ONE (10:09)
[2020-10-16] MEDS ORDERED: LORazepam 2 MG/ML SDV VIAL ONE (10:11)
[2020-10-16 10:18] LABS: ANISOCYTOSIS 2+; MACROCYTOSIS 1+; PLATELET ESTIMATE DECREASED; TEAR DROP CELLS 1+; TOXIC GRANULATION 2+
[2020-10-16 12:52] LABS: EPI CELLS 4 /uL (0-25.1); HYALINE CASTS 0 /uL (0-3.1); URINE APPEARANCE TURBID; URINE BACTERIA >9,000 /uL (0-1359); URINE BILIRUBIN NEGATIVE (NEGATIVE); URINE COLOR DK YELLOW; URINE GLUCOSE (UA) NEGATIVE (NEGATIVE); URINE KETONE NEGATIVE (NEGATIVE); URINE LEUK ESTERASE 3+ (NEGATIVE); URINE NITRITE NEGATIVE (NEGATIVE); URINE PROTEIN NEGATIVE (NEGATIVE); URINE RBC 289 /uL (0-23.9); URINE WBC 2389 /uL (0-25.8)
[2020-10-16] MEDS: DOPAMINE 400 MG/D5W - 400,000 MCG/250 ML INFUS.BAG IVPB SCH (12:58)
[2020-10-16 14:03] LABS: POTASSIUM 5.1 mmol/L (3.5-5.1)
[2020-10-16 14:08] LABS: BLOOD UREA NITROGEN 82.3 mg/dL (7-18)
[2020-10-16 14:11] LABS: CREATININE 4.4 mg/dL (0.55-1.3)
[2020-10-16] MEDS: HEPARIN NA (PORCINE) 5,000 UNITS/ML 1ML VIAL SQ SCH ×2 (15:40→21:19)
[2020-10-16] MEDS: LACTATED RINGERS SOLUTION 1,000 ML/1,000 ML INFUS.BAG IV SCH (15:40)
[2020-10-16] MEDS: INSULIN SLIDING SCALE (NOVOLOG) 1 VIAL SQ SCH ×2 (17:54→21:27)
[2020-10-16] MEDS ORDERED: PIPERACILLIN/TAZOBACTAM 2.25 GM VIAL IVPB ONE (17:57)
[2020-10-16] MEDS ORDERED: DEXTROSE 5%-WATER - 50 ML IVPB ONE (17:57)
[2020-10-16] MEDS ORDERED: VANCOMYCIN 1,000 MG in DEXTROSE 5%-WATER - 250 ML IVPB SCH (20:00)
[2020-10-16] MEDS: MUPIROCIN 2% TOPICAL OINTMENT FOR DECOLONIZATION NS SCH (21:19)
[2020-10-16] MEDS: CHLORHEXIDINE GLUCONATE 4% CLEANSER FOR DECOLONIZATION TP SCH (21:20)
[2020-10-17] MEDS ORDERED: PIPERACILLIN/TAZOBACTAM 2.25 GM VIAL IVPB ONE ×2 (02:07→10:23)
[2020-10-17] MEDS ORDERED: DEXTROSE 5%-WATER - 50 ML IVPB ONE ×4 (02:07→19:08)
[2020-10-17] MEDS: PIPERACILLIN/TAZOB 2.25 GM 2.25 GM in DEXTROSE 5%-WATER - 50 ML IVPB SCH ×2 (02:11→10:43)
[2020-10-17] MEDS: HEPARIN NA (PORCINE) 5,000 UNITS/ML 1ML VIAL SQ SCH ×2 (05:29→22:59)
[2020-10-17] MEDS: INSULIN SLIDING SCALE (NOVOLOG) 1 VIAL SQ SCH ×4 (06:19→23:00)
[2020-10-17 08:27] LABS: HEMATOCRIT 23.1 % (35.4-49); HEMOGLOBIN 7.8 GM/dL (11.7-16.9); MCH 36.2 pg (25.7-33.7); MCHC 33.9 g/dl (32.0-35.9); MEAN CELL VOLUME 106.8 fl (80-96); MEAN PLT VOLUME 8.4 fl (7.5-11.1); PLATELET COUNT 68 K/MM3 (134-434); RBC 2.16 M/mm3 (4.00-5.60); RDW 17.7 % (11.9-15.9); WHITE BLOOD COUNT 8.9 K/mm3 (4.0-10.0)
[2020-10-17 08:53] LABS: POTASSIUM 4.5 mmol/L (3.5-5.1)
[2020-10-17 08:57] LABS: BLOOD UREA NITROGEN 64.1 mg/dL (7-18); CALCIUM 7.4 mg/dL (8.5-10.1)
[2020-10-17 08:58] LABS: MAGNESIUM 1.9 mg/dL (1.8-2.4)
[2020-10-17 09:00] LABS: CREATININE 2.1 mg/dL (0.55-1.3)
[2020-10-17] MEDS: MUPIROCIN 2% TOPICAL OINTMENT FOR DECOLONIZATION NS SCH ×2 (10:42→22:59)
[2020-10-17] MEDS: PANTOPRAZOLE 20 MG TABLET PO SCH (10:43)
[2020-10-17 15:50] VITALS: BMI 26.1
[2020-10-17] MEDS: LACTATED RINGERS SOLUTION 1,000 ML/1,000 ML INFUS.BAG IV SCH (18:06)
[2020-10-17] MEDS ORDERED: PIPERACILLIN/TAZOBACTAM 3.375 GM VIAL IVPB ONE (19:08)
[2020-10-17] MEDS: PIPERACILLIN/TAZOB 3.375 GM 3.375 GM in DEXTROSE 5%-WATER - 50 ML IVPB SCH (19:21)
[2020-10-17] MEDS: DOPAMINE 400 MG/D5W - 400,000 MCG/250 ML INFUS.BAG IVPB SCH (22:59)
[2020-10-17] MEDS: CHLORHEXIDINE GLUCONATE 4% CLEANSER FOR DECOLONIZATION TP SCH (23:00)
[2020-10-18] MEDS ORDERED: PIPERACILLIN/TAZOBACTAM 3.375 GM VIAL IVPB ONE ×2 (02:36→07:48)
[2020-10-18] MEDS ORDERED: DEXTROSE 5%-WATER - 50 ML IVPB ONE ×2 (02:36→07:48)
[2020-10-18] MEDS: PIPERACILLIN/TAZOB 3.375 GM 3.375 GM in DEXTROSE 5%-WATER - 50 ML IVPB SCH ×2 (02:37→09:34)
[2020-10-18] MEDS: LACTATED RINGERS SOLUTION 1,000 ML/1,000 ML INFUS.BAG IV SCH ×3 (08:00→22:01)
[2020-10-18] MEDS: INSULIN SLIDING SCALE (NOVOLOG) 1 VIAL SQ SCH ×4 (08:19→22:10)
[2020-10-18] MEDS: DOPAMINE 400 MG/D5W - 400,000 MCG/250 ML INFUS.BAG IVPB SCH ×3 (08:22→12:23)
[2020-10-18 08:24] LABS: BASO % 0.1 % (0-2.0); EOS % 0.6 % (0-4.5); HEMATOCRIT 22.3 % (35.4-49); HEMOGLOBIN 7.5 GM/dL (11.7-16.9); LYMPH % 10.8 % (8-40); MCH 35.7 pg (25.7-33.7); MCHC 33.5 g/dl (32.0-35.9); MEAN CELL VOLUME 106.6 fl (80-96); MONO % 6.2 % (3.8-10.2); NEUT % 82.3 % (42.8-82.8); PLATELET COUNT 65 K/MM3 (134-434); RBC 2.09 M/mm3 (4.00-5.60); RDW 17.1 % (11.9-15.9); WHITE BLOOD COUNT 5.4 K/mm3 (4.0-10.0)
[2020-10-18 08:42] LABS: POTASSIUM 4.7 mmol/L (3.5-5.1)
[2020-10-18 08:44] LABS: ALBUMIN 1.8 g/dl (3.4-5.0); BLOOD UREA NITROGEN 46.8 mg/dL (7-18); CALCIUM 7.7 mg/dL (8.5-10.1); MAGNESIUM 1.8 mg/dL (1.8-2.4)
[2020-10-18 08:47] LABS: CREATININE 1.4 mg/dL (0.55-1.3); PHOSPHOROUS 2.6 mg/dL (2.5-4.9)
[2020-10-18 08:49] LABS: BILIRUBIN,TOTAL 0.7 mg/dL (0.2-1); TOT PROT 4.5 g/dl (6.4-8.2)
[2020-10-18] MEDS: HEPARIN NA (PORCINE) 5,000 UNITS/ML 1ML VIAL SQ SCH ×2 (09:34→21:59)
[2020-10-18] MEDS: PANTOPRAZOLE 20 MG TABLET PO SCH (09:34)
[2020-10-18] MEDS: MUPIROCIN 2% TOPICAL OINTMENT FOR DECOLONIZATION NS SCH (09:34)
[2020-10-18] MEDS ORDERED: FAMOTIDINE 10 MG TABLET PO SCH (10:00)
[2020-10-18] MEDS ORDERED: ERTAPENEM SODIUM 1 GM in SODIUM CHLORIDE 50 ML IVPB SCH (15:00)
[2020-10-18] MEDS: ZOLPIDEM TARTRATE 5 MG TABLET PO PRN (21:59)
[2020-10-19] MEDS: INSULIN SLIDING SCALE (NOVOLOG) 1 VIAL SQ SCH ×4 (06:12→21:33)
[2020-10-19] MEDS ORDERED: clonazePAM 2 MG TABLET PO PRN (10:29)
[2020-10-19] MEDS: HEPARIN NA (PORCINE) 5,000 UNITS/ML 1ML VIAL SQ SCH ×2 (11:57→21:24)
[2020-10-19] MEDS: FAMOTIDINE 10 MG TABLET PO SCH (11:57)
[2020-10-19] MEDS: ERTAPENEM SODIUM 1 GM in SODIUM CHLORIDE 50 ML IVPB SCH (13:21)
[2020-10-19] MEDS: LACTATED RINGERS SOLUTION 1,000 ML/1,000 ML INFUS.BAG IV SCH ×2 (13:21→19:28)
[2020-10-19] MEDS: ZOLPIDEM TARTRATE 5 MG TABLET PO PRN (21:24)
[2020-10-19] MEDS ORDERED: ACETAMINOPHEN 325 MG TABLET (FP) PO PRN (21:47)
[2020-10-19] MEDS: oxyCODONE HCL 5 MG TABLET PO PRN (22:15)
[2020-10-19] MEDS ORDERED: clonazePAM 0.5 MG TABLET PO PRN (22:18)
[2020-10-20] MEDS: INSULIN SLIDING SCALE (NOVOLOG) 1 VIAL SQ SCH ×4 (06:07→22:09)
[2020-10-20 09:10] LABS: HEMATOCRIT 21.7 % (35.4-49); HEMOGLOBIN 7.2 GM/dL (11.7-16.9); MCH 35.3 pg (25.7-33.7); MCHC 33.3 g/dl (32.0-35.9); MEAN PLT VOLUME 9.5 fl (7.5-11.1); PLATELET COUNT 77 K/MM3 (134-434); RBC 2.04 M/mm3 (4.00-5.60); RDW 16.3 % (11.9-15.9); WHITE BLOOD COUNT 5.4 K/mm3 (4.0-10.0)
[2020-10-20] MEDS ORDERED: LIDOCAINE HCL 1%, 10 MG/ML (20ML VIAL) ONE (09:26)
[2020-10-20 09:39] LABS: POTASSIUM 4.8 mmol/L (3.5-5.1)
[2020-10-20 09:50] LABS: CALCIUM 7.5 mg/dL (8.5-10.1)
[2020-10-20 09:54] LABS: CREATININE 0.9 mg/dL (0.55-1.3)
[2020-10-20 09:58] LABS: BLOOD UREA NITROGEN 19.8 mg/dL (7-18)
[2020-10-20] MEDS: FAMOTIDINE 10 MG TABLET PO SCH (10:26)
[2020-10-20] MEDS: HEPARIN NA (PORCINE) 5,000 UNITS/ML 1ML VIAL SQ SCH ×2 (10:26→22:08)
[2020-10-20] MEDS ORDERED: PT OWN MED DRAWER 7, Y5N ONE (11:13)
[2020-10-20] MEDS: ERTAPENEM SODIUM 1 GM in SODIUM CHLORIDE 50 ML IVPB SCH (11:15)
[2020-10-20] MEDS ORDERED: DEXTROSE 5%-0.45% SALINE 1,000 ML IV SCH (12:00)
[2020-10-20] MEDS: oxyCODONE HCL 5 MG TABLET PO PRN (18:43)
[2020-10-20] MEDS: METOPROLOL TARTRATE 25 MG TABLET (FP) PO SCH (22:06)
[2020-10-21] MEDS: ZOLPIDEM TARTRATE 5 MG TABLET PO PRN (03:04)
[2020-10-21] MEDS: INSULIN SLIDING SCALE (NOVOLOG) 1 VIAL SQ SCH ×4 (06:44→21:00)
[2020-10-21] MEDS ORDERED: ROCURONIUM BROMIDE 50 MG/5 ML SYRINGE ONE (07:43)
[2020-10-21] MEDS ORDERED: PROPOFOL 20 ML ONE (07:43)
[2020-10-21] MEDS ORDERED: SUCCINYLCHOLINE CHLORIDE 200 MG/10 ML SYRINGE ONE (07:43)
[2020-10-21] MEDS ORDERED: MIDAZOLAM HCL 2 MG/2 ML SINGLE DOSE VIAL ONE (07:44)
[2020-10-21] MEDS ORDERED: KETAMINE HCL 200 MG/20 ML VIAL ONE (08:40)
[2020-10-21] MEDS ORDERED: METOPROLOL TARTRATE 5 MG/5 ML VIAL ONE (08:45)
[2020-10-21 09:15] LABS: BASO % 0.2 % (0-2.0); EOS % 1.2 % (0-4.5); HEMATOCRIT 21.4 % (35.4-49); HEMOGLOBIN 7.1 GM/dL (11.7-16.9); LYMPH % 18.8 % (8-40); MCH 35.2 pg (25.7-33.7); MCHC 33.1 g/dl (32.0-35.9); MEAN CELL VOLUME 106.3 fl (80-96); MEAN PLT VOLUME 9.6 fl (7.5-11.1); MONO % 8.4 % (3.8-10.2); NEUT % 71.4 % (42.8-82.8); PLATELET COUNT 80 K/MM3 (134-434); RBC 2.01 M/mm3 (4.00-5.60); RDW 16.2 % (11.9-15.9); WHITE BLOOD COUNT 4.7 K/mm3 (4.0-10.0)
[2020-10-21 09:45] LABS: INR 1.18 (0.83-1.09); PROTHROMBIN TIME (PATIENT) 14.2 SEC (9.7-13.0)
[2020-10-21 09:47] LABS: ACTIVATED PTT 29.6 SECONDS (25.2-36.5)
[2020-10-21 09:50] LABS: POTASSIUM 4.7 mmol/L (3.5-5.1)
[2020-10-21] MEDS ORDERED: ONDANSETRON 4 MG/2 ML VIAL IVPUSH PRN (09:56)
[2020-10-21] MEDS ORDERED: SODIUM CHLORIDE 1,000 ML IV SCH (10:00)
[2020-10-21] MEDS ORDERED: ZOLPIDEM TARTRATE 5 MG TABLET PO PRN (10:11)
[2020-10-21] MEDS: DEXTROSE 5%-0.45% SALINE 1,000 ML IV SCH (10:30)
[2020-10-21 10:40] LABS: BLOOD UREA NITROGEN 14.9 mg/dL (7-18)
[2020-10-21 10:41] LABS: CREATININE 0.8 mg/dL (0.55-1.3)
[2020-10-21 10:43] LABS: BILIRUBIN,TOTAL 1.1 mg/dL (0.2-1); TOT PROT 4.6 g/dl (6.4-8.2)
[2020-10-21 10:45] LABS: CALCIUM 7.6 mg/dL (8.5-10.1)
[2020-10-21] MEDS: METOPROLOL TARTRATE 25 MG TABLET (FP) PO SCH ×2 (11:01→21:02)
[2020-10-21] MEDS: ERTAPENEM SODIUM 1 GM in SODIUM CHLORIDE 50 ML IVPB SCH (11:01)
[2020-10-21] MEDS: FAMOTIDINE 10 MG TABLET PO SCH (11:01)
[2020-10-21 11:36] LABS: ANISOCYTOSIS 1+; MACROCYTOSIS 0; PLATELET ESTIMATE DECREASED
[2020-10-21] MEDS: oxyCODONE HCL 5 MG TABLET PO PRN (13:49)
[2020-10-21] MEDS: clonazePAM 0.5 MG TABLET PO PRN ×2 (13:49→22:04)
[2020-10-21] MEDS: HEPARIN NA (PORCINE) 5,000 UNITS/ML 1ML VIAL SQ SCH (21:01)
[2020-10-22] MEDS: INSULIN SLIDING SCALE (NOVOLOG) 1 VIAL SQ SCH ×4 (06:42→22:11)
[2020-10-22] MEDS: ACETAMINOPHEN 325 MG TABLET (FP) PO PRN (09:03)
[2020-10-22] MEDS: clonazePAM 0.5 MG TABLET PO PRN ×2 (09:03→22:04)
[2020-10-22] MEDS: HEPARIN NA (PORCINE) 5,000 UNITS/ML 1ML VIAL SQ SCH ×2 (09:04→22:05)
[2020-10-22] MEDS: FAMOTIDINE 10 MG TABLET PO SCH (09:04)
[2020-10-22] MEDS: METOPROLOL TARTRATE 25 MG TABLET (FP) PO SCH ×2 (09:04→22:05)
[2020-10-22] MEDS: ERTAPENEM SODIUM 1 GM in SODIUM CHLORIDE 50 ML IVPB SCH (09:04)
[2020-10-22] MEDS: oxyCODONE HCL 5 MG TABLET PO PRN ×2 (09:09→18:26)
[2020-10-22 09:31] LABS: BASO % 0.1 % (0-2.0); EOS % 1.5 % (0-4.5); HEMATOCRIT 19.5 % (35.4-49); LYMPH % 15.8 % (8-40); MCH 36.1 pg (25.7-33.7); MCHC 34.7 g/dl (32.0-35.9); MEAN CELL VOLUME 103.9 fl (80-96); MEAN PLT VOLUME 9.1 fl (7.5-11.1); NEUT % 74.6 % (42.8-82.8); PLATELET COUNT 113 K/MM3 (134-434); RBC 1.88 M/mm3 (4.00-5.60); RDW 16.2 % (11.9-15.9); WHITE BLOOD COUNT 6.7 K/mm3 (4.0-10.0)
[2020-10-22 09:55] LABS: POTASSIUM 4.5 mmol/L (3.5-5.1)
[2020-10-22 09:57] LABS: CALCIUM 7.4 mg/dL (8.5-10.1); HEMOGLOBIN 6.8 GM/dL (11.7-16.9)
[2020-10-22 09:58] LABS: BLOOD UREA NITROGEN 12.8 mg/dL (7-18); MAGNESIUM 1.5 mg/dL (1.8-2.4)
[2020-10-22 10:01] LABS: CREATININE 0.8 mg/dL (0.55-1.3); PHOSPHOROUS 2.6 mg/dL (2.5-4.9)
[2020-10-22 10:27] LABS: ANISOCYTOSIS 1+; MACROCYTOSIS 1+; PLATELET ESTIMATE DECREASED
[2020-10-22] MEDS: DEXTROSE 5%-0.45% SALINE 1,000 ML IV SCH (10:45)
[2020-10-22] MEDS ORDERED: POLYETHYLENE GLYCOL 3350 119 GM BTL PO PRN (12:22)
[2020-10-22] MEDS ORDERED: IRON SUCROSE INJECTION 200 MG in SODIUM CHLORIDE 90 ML IVPB ONE (13:00)
[2020-10-22] MEDS: SODIUM HYPOCHLORITE 0.25%- 473 ML BULK BOTTLE TP SCH (13:39)
[2020-10-23] MEDS ORDERED: PT OWN MED DRAWER 7, Y5N ONE (06:28)
[2020-10-23] MEDS: INSULIN SLIDING SCALE (NOVOLOG) 1 VIAL SQ SCH ×4 (06:47→21:10)
[2020-10-23] MEDS: DEXTROSE 5%-0.45% SALINE 1,000 ML IV SCH (06:48)
[2020-10-23] MEDS: METOPROLOL TARTRATE 25 MG TABLET (FP) PO SCH ×2 (09:07→21:14)
[2020-10-23] MEDS: SODIUM HYPOCHLORITE 0.25%- 473 ML BULK BOTTLE TP SCH (09:07)
[2020-10-23] MEDS: HEPARIN NA (PORCINE) 5,000 UNITS/ML 1ML VIAL SQ SCH ×2 (09:07→21:11)
[2020-10-23] MEDS: ERTAPENEM SODIUM 1 GM in SODIUM CHLORIDE 50 ML IVPB SCH (09:07)
[2020-10-23] MEDS: FAMOTIDINE 10 MG TABLET PO SCH (09:07)
[2020-10-23 11:57] LABS: HEMATOCRIT 20.1 % (35.4-49); MCHC 34.2 g/dl (32.0-35.9); MEAN CELL VOLUME 105.2 fl (80-96); MEAN PLT VOLUME 9.4 fl (7.5-11.1); PLATELET COUNT 121 K/MM3 (134-434); RBC 1.91 M/mm3 (4.00-5.60); RDW 16.8 % (11.9-15.9); WHITE BLOOD COUNT 6.7 K/mm3 (4.0-10.0)
[2020-10-23 12:07] LABS: POTASSIUM 4.8 mmol/L (3.5-5.1)
[2020-10-23 12:09] LABS: ALBUMIN 1.9 g/dl (3.4-5.0); BLOOD UREA NITROGEN 11.8 mg/dL (7-18); CALCIUM 7.7 mg/dL (8.5-10.1)
[2020-10-23 12:13] LABS: CREATININE 0.8 mg/dL (0.55-1.3)
[2020-10-23 12:14] LABS: BILIRUBIN,TOTAL 0.6 mg/dL (0.2-1); TOT PROT 4.5 g/dl (6.4-8.2)
[2020-10-23 12:29] LABS: HEMOGLOBIN 6.9 GM/dL (11.7-16.9)
[2020-10-23] MEDS: oxyCODONE HCL 5 MG TABLET PO PRN (17:39)
[2020-10-23] MEDS: clonazePAM 0.5 MG TABLET PO PRN (21:13)
[2020-10-24] MEDS: INSULIN SLIDING SCALE (NOVOLOG) 1 VIAL SQ SCH ×4 (06:47→21:19)
[2020-10-24] MEDS ORDERED: PT OWN MED DRAWER 7, Y5N ONE (09:54)
[2020-10-24] MEDS: METOPROLOL TARTRATE 25 MG TABLET (FP) PO SCH ×2 (10:35→21:14)
[2020-10-24] MEDS: SODIUM HYPOCHLORITE 0.25%- 473 ML BULK BOTTLE TP SCH (10:35)
[2020-10-24] MEDS: ERTAPENEM SODIUM 1 GM in SODIUM CHLORIDE 50 ML IVPB SCH (10:35)
[2020-10-24] MEDS: HEPARIN NA (PORCINE) 5,000 UNITS/ML 1ML VIAL SQ SCH ×2 (10:35→21:13)
[2020-10-24] MEDS: FAMOTIDINE 10 MG TABLET PO SCH (10:35)
[2020-10-24] MEDS ORDERED: clonazePAM 2 MG TABLET PO PRN (14:15)
[2020-10-24] MEDS ORDERED: cloNIDine HCL 0.1 MG TABLET PO PRN (14:22)
[2020-10-24] MEDS: clonazePAM 0.5 MG TABLET PO PRN ×2 (14:35→21:14)
[2020-10-25] MEDS: INSULIN SLIDING SCALE (NOVOLOG) 1 VIAL SQ SCH ×3 (06:42→22:54)
[2020-10-25] MEDS: METOPROLOL TARTRATE 25 MG TABLET (FP) PO SCH ×2 (11:30→22:53)
[2020-10-25] MEDS: SODIUM HYPOCHLORITE 0.25%- 473 ML BULK BOTTLE TP SCH (11:30)
[2020-10-25] MEDS: HEPARIN NA (PORCINE) 5,000 UNITS/ML 1ML VIAL SQ SCH ×2 (11:30→22:53)
[2020-10-25] MEDS: FAMOTIDINE 10 MG TABLET PO SCH (11:30)
[2020-10-25] MEDS ORDERED: PT OWN MED DRAWER 7, Y5N ONE (11:53)
[2020-10-25] MEDS: ERTAPENEM SODIUM 1 GM in SODIUM CHLORIDE 50 ML IVPB SCH (11:57)
[2020-10-25] MEDS: clonazePAM 0.5 MG TABLET PO PRN ×2 (15:28→22:55)
[2020-10-26] MEDS: INSULIN SLIDING SCALE (NOVOLOG) 1 VIAL SQ SCH ×2 (06:12→21:18)
[2020-10-26 09:55] LABS: HEMATOCRIT 20.7 % (35.4-49); HEMOGLOBIN 7.1 GM/dL (11.7-16.9); MCH 36.8 pg (25.7-33.7); MCHC 34.4 g/dl (32.0-35.9); MEAN CELL VOLUME 106.9 fl (80-96); PLATELET COUNT 146 K/MM3 (134-434); RBC 1.93 M/mm3 (4.00-5.60); RDW 19.4 % (11.9-15.9); WHITE BLOOD COUNT 4.5 K/mm3 (4.0-10.0)
[2020-10-26] MEDS: clonazePAM 0.5 MG TABLET PO PRN ×2 (09:57→21:18)
[2020-10-26] MEDS: HEPARIN NA (PORCINE) 5,000 UNITS/ML 1ML VIAL SQ SCH ×2 (09:58→21:16)
[2020-10-26] MEDS: METOPROLOL TARTRATE 25 MG TABLET (FP) PO SCH ×2 (09:58→21:17)
[2020-10-26] MEDS: ERTAPENEM SODIUM 1 GM in SODIUM CHLORIDE 50 ML IVPB SCH (09:58)
[2020-10-26] MEDS: SODIUM HYPOCHLORITE 0.25%- 473 ML BULK BOTTLE TP SCH (09:58)
[2020-10-26] MEDS: FAMOTIDINE 10 MG TABLET PO SCH (09:58)
[2020-10-26 10:26] LABS: CHOLESTEROL 134 mg/dL (50-200); TRIGLYCERIDES 134 mg/dL (0-150)
[2020-10-26 10:27] LABS: LDL CHOLESTEROL (ONLY SJRH) 76 mg/dL (5-100)
[2020-10-26 10:29] LABS: HDL CHOLESTEROL 44 mg/dL (40-60)
[2020-10-26] MEDS ORDERED: INSULIN (NOVOLOG) ASPART 100 UNITS/ML 10ML VIAL ONE (21:09)
[2020-10-27] MEDS: INSULIN SLIDING SCALE (NOVOLOG) 1 VIAL SQ SCH ×4 (06:39→22:18)
[2020-10-27] MEDS ORDERED: PT OWN MED DRAWER 7, Y5N ONE (09:34)
[2020-10-27] MEDS: METOPROLOL TARTRATE 25 MG TABLET (FP) PO SCH ×2 (09:37→22:04)
[2020-10-27] MEDS: ERTAPENEM SODIUM 1 GM in SODIUM CHLORIDE 50 ML IVPB SCH (09:37)
[2020-10-27] MEDS: SODIUM HYPOCHLORITE 0.25%- 473 ML BULK BOTTLE TP SCH (09:38)
[2020-10-27] MEDS: HEPARIN NA (PORCINE) 5,000 UNITS/ML 1ML VIAL SQ SCH ×2 (09:38→22:03)
[2020-10-27] MEDS: FAMOTIDINE 10 MG TABLET PO SCH (09:38)
[2020-10-27] MEDS: COLLAGENASE CLOSTRIDIUM HIST. 30 GRAMS TUBE TP SCH (12:06)
[2020-10-27] MEDS: clonazePAM 0.5 MG TABLET PO PRN (12:06)
[2020-10-27] MEDS: INSULIN (LEVEMIR) 100 UNITS/ML UNITS SQ SCH (22:18)
[2020-10-28] MEDS: INSULIN SLIDING SCALE (NOVOLOG) 1 VIAL SQ SCH ×5 (06:34→21:48)
[2020-10-28] MEDS ORDERED: PT OWN MED DRAWER 7, Y5N ONE (10:42)
[2020-10-28] MEDS: METOPROLOL TARTRATE 25 MG TABLET (FP) PO SCH ×2 (10:59→21:50)
[2020-10-28] MEDS: COLLAGENASE CLOSTRIDIUM HIST. 30 GRAMS TUBE TP SCH (11:00)
[2020-10-28] MEDS: HEPARIN NA (PORCINE) 5,000 UNITS/ML 1ML VIAL SQ SCH (11:00)
[2020-10-28] MEDS: FAMOTIDINE 10 MG TABLET PO SCH (11:00)
[2020-10-28] MEDS ORDERED: INSULIN (NOVOLOG) ASPART 100 UNITS/ML 10ML VIAL ONE (12:15)
[2020-10-28] MEDS: INSULIN (LEVEMIR) 100 UNITS/ML UNITS SQ SCH (21:50)
[2020-10-29] MEDS: INSULIN SLIDING SCALE (NOVOLOG) 1 VIAL SQ SCH ×2 (06:13→14:50)
[2020-10-29] MEDS: ACETAMINOPHEN 325 MG TABLET (FP) PO PRN (07:02)
[2020-10-29] MEDS: METOPROLOL TARTRATE 25 MG TABLET (FP) PO SCH (10:04)
[2020-10-29] MEDS: FAMOTIDINE 10 MG TABLET PO SCH (10:04)
[2020-10-29] MEDS: COLLAGENASE CLOSTRIDIUM HIST. 30 GRAMS TUBE TP SCH (10:06)
[2020-10-29 14:36] VITALS: BP 115/65; PULSE 89; TEMP 98.6
== END 2020-10-29 16:23 | DRG 853 ==
LOC: JER 17:08 → JERBED 20:21 → JICU-6 10-16 11:31 → J6S 10-18 18:50
PROVIDERS: ADMIT Internal Medicine; ATTEND Internal Medicine
PROC: 0KBN0ZZ Excision of Right Hip Muscle, Open Approach (ICD-10-PCS; 2020-10-21)
PROC: 0KBP0ZZ Excision of Left Hip Muscle, Open Approach (ICD-10-PCS; principal; 2020-10-21 08:00)
DX: A41.89 Other specified sepsis (principal); R65.21 Severe sepsis with septic shock; J18.9 Pneumonia, unspecified organism; R53.2 Functional quadriplegia; J96.01 Acute respiratory failure with hypoxia; I50.33 Acute on chronic diastolic (congestive) heart failure; E87.2 Acidosis; E87.1 Hypo-osmolality and hyponatremia; I24.8 Other forms of acute ischemic heart disease; N39.0 Urinary tract infection, site not specified; I96 Gangrene, not elsewhere classified; I11.0 Hypertensive heart disease with heart failure; E87.5 Hyperkalemia; F31.9 Bipolar disorder, unspecified; F20.9 Schizophrenia, unspecified; E10.9 Type 1 diabetes mellitus without complications; D64.9 Anemia, unspecified; E55.9 Vitamin D deficiency, unspecified; M81.0 Age-related osteoporosis without current pathological fracture; J44.9 Chronic obstructive pulmonary disease, unspecified; R29.6 Repeated falls; E78.00 Pure hypercholesterolemia, unspecified; E83.51 Hypocalcemia; D72.819 Decreased white blood cell count, unspecified; D69.6 Thrombocytopenia, unspecified; I25.119 Atherosclerotic heart disease of native coronary artery with unspecified angina pectoris; L89.150 Pressure ulcer of sacral region, unstageable; B96.20 Unspecified Escherichia coli [E. coli] as the cause of diseases classified elsewhere; S42.302D Unspecified fracture of shaft of humerus, left arm, subsequent encounter for fracture with routine healing; W18.30XD Fall on same level, unspecified, subsequent encounter; R94.31 Abnormal electrocardiogram [ECG] [EKG]; Z20.822 Contact with and (suspected) exposure to COVID-19; Z53.1 Procedure and treatment not carried out because of patient's decision for reasons of belief and group pressure
CPT/HCPCS: 36415; 36600; 70450-TC; 71045-TC-FY; 73030-TC-LT-FY; 73060-TC-LT-FY; 73070-TC-LT-FY; 73090-TC-LT-FY; 80048; 80053; 80061; 81003; 82248; 82550; 82565; 82728; 82803; 82962; 83540; 83550; 83605; 83615; 83721; 83735; 84100; 84156; 84300; 84484; 84540; 85025; 85027; 85379; 85610; 85730; 86140; 86850; 86900; 86901; 87040; 87070; 87086; 87186; 87205; 87899; 88304-TC; 93005; 93010; 93306-TC; 94010; 94660; 94760; 97161-GP; 99291; C9803; J0131; J1644; J1756; U0003

== ENCOUNTER 2021-01-15 22:18 | Inpatient (IN) | payer OTHER ==
[~2021-01-15 22:18] MED LIST: LACTATED RINGERS SOLUTION 1000 ML INFUS.BAG IV ONE
[2021-01-15] MEDS ORDERED: TRANEXAMIC ACID 1000 MG/10 ML VIAL ONE (22:49)
[2021-01-15] MEDS ORDERED: TRANEXAMIC ACID 1000 MG/10 ML VIAL IVPB ONE (23:05)
[2021-01-15 23:12] LABS: BASO % 0.2 % (0-2.0); HEMATOCRIT 24.8 % (35.4-49); HEMOGLOBIN 8.2 GM/dL (11.7-16.9); LYMPH % 9.4 % (8-40); MCH 36.4 pg (25.7-33.7); MCHC 33.2 g/dl (32.0-35.9); MEAN CELL VOLUME 109.4 fl (80-96); MEAN PLT VOLUME 9.1 fl (7.5-11.1); MONO % 11.3 % (3.8-10.2); NEUT % 79.1 % (42.8-82.8); PLATELET COUNT 152 K/MM3 (134-434); RBC 2.26 M/mm3 (4.00-5.60); RDW 16.3 % (11.9-15.9); WHITE BLOOD COUNT 5.1 K/mm3 (4.0-10.0)
[2021-01-15 23:17] LABS: INR 1.29 (0.83-1.09); PROTHROMBIN TIME (PATIENT) 15.8 SEC (9.7-13.0)
[2021-01-15 23:20] LABS: ACTIVATED PTT 26.4 SECONDS (25.2-36.5)
[2021-01-15 23:30] LABS: CHLORIDE 102 mmol/L (98-107); SODIUM 134 mmol/L (136-145)
[2021-01-15] MEDS ORDERED: AMINOCAPROIC ACID 5 GM/20 ML VIAL IVPB ONE (23:30)
[2021-01-15 23:31] LABS: CALCIUM 7.4 mg/dL (8.5-10.1)
[2021-01-15 23:32] LABS: ALBUMIN 2.4 g/dl (3.4-5.0); CO2 16 mmol/L (21-32); GLUCOSE,RANDOM 288 mg/dL (74-106)
[2021-01-15 23:34] LABS: SGPT/ALT 16 U/L (13-61)
[2021-01-15 23:35] LABS: CREATININE 4.3 mg/dL (0.55-1.3); SGOT/AST 24 U/L (15-37)
[2021-01-15 23:36] LABS: TOT PROT 5.2 g/dl (6.4-8.2)
[2021-01-15 23:37] LABS: VENOUS BASE EXCESS -10.5 mmol/L (-2-2); VENOUS O2 SATURATION 90.7 % (70-80); VENOUS PCO2 30.8 mmHg (38-52); VENOUS PH 7.302 (7.310-7.410)
[2021-01-15 23:37] LABS: ALK PHOS 136 U/L (45-117)
[2021-01-15 23:41] LABS: ANION GAP 15 MMOL/L (8-16); BLOOD UREA NITROGEN 119.2 mg/dL (7-18)
[2021-01-15 23:48] LABS: ANISOCYTOSIS 2+; MACROCYTOSIS 2+; PLATELET ESTIMATE NORMAL
[2021-01-15] MEDS ORDERED: LIDOCAINE HCL 2% JELLY 10 ML CARTRIDGE ONE (23:48)
[2021-01-16] MEDS ORDERED: CEFTRIAXONE 1 GM in DEXTROSE 5%-WATER - 100 ML IVPB ONE (00:21)
[2021-01-16] MEDS ORDERED: CEFTRIAXONE 1 GM/50 ML BAG ONE (00:23)
[2021-01-16 00:26] LABS: LACTIC ACID 3.7 mmol/L (0.4-2.0)
[2021-01-16] MEDS: NOREPINEPHRINE NS PREMIX 8,000 MCG/500 ML BAG IVPB SCH (00:35)
[2021-01-16] MEDS ORDERED: VANCOMYCIN 1 GM in D5W (PRE-DOCKED) 1,000 MG/250 ML IVPB ONE (00:36)
[2021-01-16 01:01] LABS: EPI CELLS 9 /uL (0-25.1); HYALINE CASTS 0 /uL (0-3.1); URINE APPEARANCE TURBID; URINE BILIRUBIN 3+ (NEGATIVE); URINE COLOR RED; URINE GLUCOSE (UA) TRACE (NEGATIVE); URINE KETONE Error (NEGATIVE); URINE LEUK ESTERASE 3+ (NEGATIVE); URINE NITRITE POSITIVE (NEGATIVE); URINE PROTEIN 2+ (NEGATIVE); URINE RBC 9 /uL (0-23.9); URINE UROBILINOGEN 0.2 mg/dL (0.2-1.0); URINE WBC 1 /uL (0-25.8)
[2021-01-16] MEDS ORDERED: VANCOMYCIN 1 GRAM (PRE-DOCKED) 1,000 MG/250 ML BAG IVPB ONE (01:08)
[2021-01-16] MEDS ORDERED: ACETAMINOPHEN 1000 MG/100 ML BAG IVPB ONE (01:12)
[2021-01-16] MEDS ORDERED: ACETAMINOPHEN INJECTION 100 ML IVPB ONE (01:36)
[2021-01-16 02:04] LABS: CHLORIDE 106 mmol/L (98-107)
[2021-01-16 02:06] LABS: CO2 17 mmol/L (21-32)
[2021-01-16 02:07] LABS: GLUCOSE,RANDOM 236 mg/dL (74-106)
[2021-01-16 02:10] LABS: CREATININE 3.9 mg/dL (0.55-1.3)
[2021-01-16 02:54] LABS: ANION GAP 13 MMOL/L (8-16); BLOOD UREA NITROGEN 115.2 mg/dL (7-18); CALCIUM 6.8 mg/dL (8.5-10.1); SODIUM 136 mmol/L (136-145)
[2021-01-16] MEDS ORDERED: VASOPRESSIN 20 UNITS/ML VIAL IV ONE ×2 (03:34→12:01)
[2021-01-16] MEDS: VASOPRESSIN 40 UNITS in SODIUM CHLORIDE 98 ML IVPB SCH (03:45)
[2021-01-16 04:58] LABS: ARTERIAL BLD GAS O2 SATURATION 98.5 mmHg (95-98); ARTERIAL BLOOD GAS BASE EXCESS -10.8 mmol/L (-2-2); ARTERIAL BLOOD GAS PO2 137.9 mmHg (80-100); ARTERIAL BLOOD GAS pH 7.285 (7.350-7.450)
[2021-01-16] MEDS ORDERED: SODIUM CHLORIDE 1,000 ML IV SCH (05:00)
[2021-01-16 07:32] LABS: CHLORIDE 108 mmol/L (98-107); SODIUM 137 mmol/L (136-145)
[2021-01-16 07:35] LABS: ANION GAP 12 MMOL/L (8-16); CO2 17 mmol/L (21-32); GLUCOSE,RANDOM 236 mg/dL (74-106)
[2021-01-16 07:38] LABS: CREATININE 3.7 mg/dL (0.55-1.3); SGOT/AST 11 U/L (15-37); SGPT/ALT 15 U/L (13-61)
[2021-01-16 07:39] LABS: BILIRUBIN,TOTAL 0.9 mg/dL (0.2-1); TOT PROT 4.4 g/dl (6.4-8.2)
[2021-01-16 07:40] LABS: ALK PHOS 119 U/L (45-117)
[2021-01-16] MEDS ORDERED: NOREPINEPHRINE BITARTRATE 4 MG/4 ML ML IV ONE (07:43)
[2021-01-16 07:47] LABS: BASO % 0.1 % (0-2.0); BLOOD UREA NITROGEN 113.3 mg/dL (7-18); CALCIUM 6.3 mg/dL (8.5-10.1); LYMPH % 7.4 % (8-40); MCH 37.3 pg (25.7-33.7); MCHC 35.2 g/dl (32.0-35.9); MEAN CELL VOLUME 106.2 fl (80-96); MEAN PLT VOLUME 8.8 fl (7.5-11.1); MONO % 6.9 % (3.8-10.2); NEUT % 85.6 % (42.8-82.8); PLATELET COUNT 123 K/MM3 (134-434); RBC 1.89 M/mm3 (4.00-5.60); RDW 16.1 % (11.9-15.9); WHITE BLOOD COUNT 5.3 K/mm3 (4.0-10.0)
[2021-01-16] MEDS: MUPIROCIN 2% TOPICAL OINTMENT FOR DECOLONIZATION NS SCH ×3 (08:10→21:31)
[2021-01-16] MEDS ORDERED: SODIUM CHLORIDE 0.9% 500 ML INFUS.BAG IV ONE (08:26)
[2021-01-16] MEDS ORDERED: MEROPENEM 1 GM VIAL (RESTRICTED TO ID) IVPB ONE ×2 (10:57→21:27)
[2021-01-16] MEDS ORDERED: DEXTROSE 5%-WATER 100 ML IVPB ONE ×2 (10:57→21:27)
[2021-01-16] MEDS: MEROPENEM 1 GM in DEXTROSE 5%-WATER 100 ML IVPB SCH ×2 (11:04→21:31)
[2021-01-16 11:51] LABS: ANISOCYTOSIS 1+; MACROCYTOSIS 0; PLATELET ESTIMATE DECREASED
[2021-01-16] MEDS: FINASTERIDE 5 MG TABLET (FP) PO SCH (12:08)
[2021-01-16] MEDS: SODIUM CHLORIDE 1,000 ML IV SCH ×2 (12:15→21:49)
[2021-01-16] MEDS: methylPREDNISolone NA SUCC 40 MG/1 ML VIAL IVPB SCH (13:33)
[2021-01-16] MEDS ORDERED: HYDROCORTISONE 20 MG TABLET PO SCH ×2 (14:00)
[2021-01-16] MEDS ORDERED: MULTIVIT INJ. ADULT COMBO WITH VIT K 1 COMBO 10 ML VIAL IV SCH (14:30)
[2021-01-16] MEDS ORDERED: AMINO ACIDS 4.25%/D5W 1,000 ML IV SCH (14:30)
[2021-01-16 15:21] LABS: CHLORIDE 110 mmol/L (98-107); SODIUM 138 mmol/L (136-145)
[2021-01-16 15:23] LABS: ANION GAP 11 MMOL/L (8-16); CO2 17 mmol/L (21-32); GLUCOSE,RANDOM 211 mg/dL (74-106)
[2021-01-16 15:26] LABS: CREATININE 3.1 mg/dL (0.55-1.3)
[2021-01-16 15:32] LABS: BLOOD UREA NITROGEN 110.1 mg/dL (7-18); CALCIUM 6.6 mg/dL (8.5-10.1)
[2021-01-16] MEDS: CHLORHEXIDINE GLUCONATE 4% CLEANSER FOR DECOLONIZATION TP SCH (21:31)
[2021-01-16] MEDS ORDERED: ACETAMINOPHEN 1000 MG/100 ML BAG IVPB PRN (23:47)
[2021-01-16] MEDS ORDERED: ALBUTEROL SO4 0.083% IH SOL 2.5 MG/3 ML VIAL.NEB. NEB PRN (23:50)
[2021-01-17] MEDS ORDERED: NOREPINEPHRINE BITARTRATE 8,000 MCG/500 ML BAG IVPB ONE ×2 (00:14→17:23)
[2021-01-17] MEDS ORDERED: AMIODARONE IN DEXTROSE,ISO-OSM 150 MG/100 ML BAG IVPB ONE (00:30)
[2021-01-17] MEDS ORDERED: AMIODARONE IN DEXTROSE,ISO-OSM 360 MG/200 ML BAG ONE (00:48)
[2021-01-17] MEDS ORDERED: AMIODARONE IN DEXTROSE,ISO-OSM 150 MG/100 ML BAG ONE (00:48)
[2021-01-17] MEDS ORDERED: MAGNESIUM SULF 50% (8.12 MEQ/2 ML-1 GM VIAL) IVPB ONE (01:09)
[2021-01-17] MEDS ORDERED: AMIODARONE IN DEXTROSE,ISO-OSM 360 MG/200 ML BAG IVPB ONE ×2 (01:22→01:30)
[2021-01-17] MEDS ORDERED: AMIODARONE HCL 150 MG/3 ML VIAL IVPUSH ONE (01:27)
[2021-01-17] MEDS: NOREPINEPHRINE NS PREMIX 8,000 MCG/500 ML BAG IVPB SCH (02:11)
[2021-01-17] MEDS: VASOPRESSIN 40 UNITS in SODIUM CHLORIDE 98 ML IVPB SCH ×2 (02:12→03:30)
[2021-01-17 02:56] LABS: HEMATOCRIT 18.8 % (35.4-49); LYMPH % 5.4 % (8-40); MCH 36.3 pg (25.7-33.7); MCHC 33.3 g/dl (32.0-35.9); MEAN CELL VOLUME 109.1 fl (80-96); MEAN PLT VOLUME 8.8 fl (7.5-11.1); MONO % 6.9 % (3.8-10.2); NEUT % 87.7 % (42.8-82.8); PLATELET COUNT 93 K/MM3 (134-434); RBC 1.72 M/mm3 (4.00-5.60); WHITE BLOOD COUNT 3.3 K/mm3 (4.0-10.0)
[2021-01-17 03:01] LABS: HEMOGLOBIN 6.3 GM/dL (11.7-16.9)
[2021-01-17 03:02] LABS: CHLORIDE 112 mmol/L (98-107); SODIUM 139 mmol/L (136-145)
[2021-01-17 03:04] LABS: ANION GAP 12 MMOL/L (8-16); BLOOD UREA NITROGEN 102.7 mg/dL (7-18); CO2 15 mmol/L (21-32); MAGNESIUM 1.7 mg/dL (1.8-2.4)
[2021-01-17 03:07] LABS: CREATININE 2.7 mg/dL (0.55-1.3); SGOT/AST 29 U/L (15-37); SGPT/ALT 20 U/L (13-61)
[2021-01-17 03:08] LABS: PHOSPHOROUS 5.4 mg/dL (2.5-4.9)
[2021-01-17 03:09] LABS: BILIRUBIN,TOTAL 0.7 mg/dL (0.2-1); TOT PROT 4.5 g/dl (6.4-8.2)
[2021-01-17 03:10] LABS: ALK PHOS 139 U/L (45-117)
[2021-01-17 04:26] LABS: CALCIUM 6.2 mg/dL (8.5-10.1); GLUCOSE,RANDOM 447 mg/dL (74-106)
[2021-01-17] MEDS ORDERED: INSULIN REGULAR HUMAN 100 UNITS/ML *VIAL IVPUSH ONE (05:05)
[2021-01-17] MEDS: INSULIN SLIDING SCALE (NOVOLOG) 1 VIAL SQ SCH ×3 (06:11→19:44)
[2021-01-17 06:16] LABS: ARTERIAL BLD GAS O2 SATURATION 97.2 mmHg (95-98); ARTERIAL BLOOD GAS BASE EXCESS -13.1 mmol/L (-2-2); ARTERIAL BLOOD GAS PO2 96.7 mmHg (80-100); ARTERIAL BLOOD GAS pH 7.343 (7.350-7.450)
[2021-01-17 06:19] LABS: ALLENS TEST POSITIVE
[2021-01-17 07:03] LABS: HEMATOCRIT 18.8 % (35.4-49); LYMPH % 6.3 % (8-40); MCH 36.7 pg (25.7-33.7); MCHC 33.4 g/dl (32.0-35.9); MEAN CELL VOLUME 109.9 fl (80-96); MEAN PLT VOLUME 9.1 fl (7.5-11.1); MONO % 7.8 % (3.8-10.2); NEUT % 85.9 % (42.8-82.8); PLATELET COUNT 103 K/MM3 (134-434); RBC 1.71 M/mm3 (4.00-5.60); WHITE BLOOD COUNT 4.2 K/mm3 (4.0-10.0)
[2021-01-17 07:12] LABS: CHLORIDE 111 mmol/L (98-107); SODIUM 137 mmol/L (136-145)
[2021-01-17 07:14] LABS: ANION GAP 12 MMOL/L (8-16); CO2 14 mmol/L (21-32)
[2021-01-17 07:15] LABS: ALBUMIN 1.9 g/dl (3.4-5.0); BLOOD UREA NITROGEN 96.3 mg/dL (7-18)
[2021-01-17 07:17] LABS: MAGNESIUM 2.6 mg/dL (1.8-2.4)
[2021-01-17] MEDS: AMIODARONE IN DEXTROSE,ISO-OSM 360 MG/200 ML BAG IVPB SCH (07:17)
[2021-01-17 07:18] LABS: CREATININE 2.5 mg/dL (0.55-1.3); SGOT/AST 111 U/L (15-37); SGPT/ALT 28 U/L (13-61)
[2021-01-17 07:19] LABS: BILIRUBIN,TOTAL 0.7 mg/dL (0.2-1); TOT PROT 4.6 g/dl (6.4-8.2)
[2021-01-17 07:20] LABS: ALK PHOS 137 U/L (45-117)
[2021-01-17 07:21] LABS: PHOSPHOROUS 5.2 mg/dL (2.5-4.9)
[2021-01-17 07:27] LABS: HEMOGLOBIN 6.3 GM/dL (11.7-16.9)
[2021-01-17 07:47] LABS: CALCIUM 6.3 mg/dL (8.5-10.1); GLUCOSE,RANDOM 463 mg/dL (74-106)
[2021-01-17 08:29] LABS: EPI CELLS 7 /uL (0-25.1); HYALINE CASTS 0 /uL (0-3.1); PH,URINE 5.5 (5.0-8.0); URINE APPEARANCE CLEAR; URINE BACTERIA 60 /uL (0-1359); URINE BILIRUBIN NEGATIVE (NEGATIVE); URINE COLOR RED; URINE GLUCOSE (UA) NEGATIVE (NEGATIVE); URINE KETONE NEGATIVE (NEGATIVE); URINE LEUK ESTERASE TRACE (NEGATIVE); URINE NITRITE NEGATIVE (NEGATIVE); URINE PROTEIN TRACE (NEGATIVE); URINE RBC 2811 /uL (0-23.9); URINE UROBILINOGEN 0.2 mg/dL (0.2-1.0); URINE WBC 26 /uL (0-25.8)
[2021-01-17] MEDS ORDERED: MEROPENEM 1 GM VIAL (RESTRICTED TO ID) IVPB ONE ×2 (08:54→22:28)
[2021-01-17] MEDS ORDERED: DEXTROSE 5%-WATER 100 ML IVPB ONE ×2 (08:55→22:28)
[2021-01-17] MEDS: methylPREDNISolone NA SUCC 40 MG/1 ML VIAL IVPB SCH (09:26)
[2021-01-17] MEDS: MEROPENEM 1 GM in DEXTROSE 5%-WATER 100 ML IVPB SCH ×2 (09:26→22:30)
[2021-01-17] MEDS: MUPIROCIN 2% TOPICAL OINTMENT FOR DECOLONIZATION NS SCH ×2 (09:26→22:30)
[2021-01-17] MEDS: FINASTERIDE 5 MG TABLET (FP) PO SCH (09:26)
[2021-01-17] MEDS: INSULIN (LEVEMIR) 100 UNITS/ML UNITS SQ SCH (22:29)
[2021-01-17] MEDS: CHLORHEXIDINE GLUCONATE 4% CLEANSER FOR DECOLONIZATION TP SCH (22:30)
[2021-01-18] MEDS ORDERED: ACETAMINOPHEN 1000 MG/100 ML BAG IVPB ONE (01:16)
[2021-01-18] MEDS ORDERED: oxyCODONE HCL 5 MG TABLET PO PRN (03:24)
[2021-01-18] MEDS: VASOPRESSIN 40 UNITS in SODIUM CHLORIDE 98 ML IVPB SCH (03:46)
[2021-01-18] MEDS ORDERED: IRON SUCROSE INJECTION 200 MG in SODIUM CHLORIDE 90 ML IVPB ONE (04:00)
[2021-01-18] MEDS: AMIODARONE IN DEXTROSE,ISO-OSM 360 MG/200 ML BAG IVPB SCH ×2 (05:41→07:44)
[2021-01-18] MEDS: INSULIN SLIDING SCALE (NOVOLOG) 1 VIAL SQ SCH ×3 (06:37→17:43)
[2021-01-18 07:04] LABS: BASO % 0.1 % (0-2.0); HEMATOCRIT 18.9 % (35.4-49); LYMPH % 5.9 % (8-40); MCH 36.4 pg (25.7-33.7); MCHC 33.4 g/dl (32.0-35.9); MEAN PLT VOLUME 9.2 fl (7.5-11.1); MONO % 8.6 % (3.8-10.2); NEUT % 85.4 % (42.8-82.8); PLATELET COUNT 116 K/MM3 (134-434); RBC 1.73 M/mm3 (4.00-5.60); RDW 16.4 % (11.9-15.9); RETICULOCYTES 3.46 % (0.5-1.5); WHITE BLOOD COUNT 7.5 K/mm3 (4.0-10.0)
[2021-01-18 07:11] LABS: CHLORIDE 107 mmol/L (98-107); SODIUM 134 mmol/L (136-145)
[2021-01-18 07:21] LABS: ANION GAP 13 MMOL/L (8-16); BLOOD UREA NITROGEN 86.2 mg/dL (7-18); CO2 14 mmol/L (21-32)
[2021-01-18 07:22] LABS: IRON SERUM 262 ug/dL (50-175); MAGNESIUM 2.3 mg/dL (1.8-2.4); TOTAL IRON BINDING CAPACITY 239 ug/dL (250-450)
[2021-01-18 07:23] LABS: HEMOGLOBIN 6.3 GM/dL (11.7-16.9); SGOT/AST 216 U/L (15-37); SGPT/ALT 317 U/L (13-61)
[2021-01-18 07:24] LABS: CREATININE 2.1 mg/dL (0.55-1.3)
[2021-01-18 07:25] LABS: BILIRUBIN,TOTAL 0.7 mg/dL (0.2-1); TOT PROT 4.7 g/dl (6.4-8.2)
[2021-01-18 07:26] LABS: ALK PHOS 158 U/L (45-117); PHOSPHOROUS 3.8 mg/dL (2.5-4.9)
[2021-01-18] MEDS ORDERED: LIDOCAINE HCL 2% JELLY 10 ML CARTRIDGE UR ONE (07:26)
[2021-01-18 07:43] LABS: CALCIUM 6.5 mg/dL (8.5-10.1); GLUCOSE,RANDOM 466 mg/dL (74-106)
[2021-01-18] MEDS: NOREPINEPHRINE NS PREMIX 8,000 MCG/500 ML BAG IVPB SCH (07:44)
[2021-01-18] MEDS: SODIUM CHLORIDE 1,000 ML IV SCH ×2 (07:44→13:05)
[2021-01-18] MEDS ORDERED: PT OWN MED DRAWER 7, Y5N ONE ×2 (09:27→11:06)
[2021-01-18] MEDS ORDERED: PHENAZOPYRIDINE HCL 100 MG TABLET (FP) PO ONE (10:00)
[2021-01-18] MEDS ORDERED: METOPROLOL TARTRATE 5 MG/5 ML VIAL IVPUSH PRN (10:04)
[2021-01-18] MEDS ORDERED: DEXTROSE 5%-WATER 100 ML IVPB ONE ×2 (10:08→21:51)
[2021-01-18] MEDS ORDERED: MEROPENEM 1 GM VIAL (RESTRICTED TO ID) IVPB ONE ×2 (10:08→21:50)
[2021-01-18] MEDS: MULTIVIT INJ. ADULT COMBO WITH VIT K 1 COMBO 10 ML VIAL IV SCH (10:13)
[2021-01-18] MEDS: MEROPENEM 1 GM in DEXTROSE 5%-WATER 100 ML IVPB SCH ×2 (10:20→21:53)
[2021-01-18] MEDS: FINASTERIDE 5 MG TABLET (FP) PO SCH (10:20)
[2021-01-18] MEDS: OXYBUTYNIN CHLORIDE 5 MG TABLET PO SCH ×2 (10:20→21:53)
[2021-01-18] MEDS: methylPREDNISolone NA SUCC 40 MG/1 ML VIAL IVPB SCH (10:20)
[2021-01-18] MEDS: MUPIROCIN 2% TOPICAL OINTMENT FOR DECOLONIZATION NS SCH ×2 (10:21→21:53)
[2021-01-18 10:41] LABS: ANISOCYTOSIS 1+; PLATELET ESTIMATE DECREASED
[2021-01-18 10:43] LABS: MAGNESIUM 2.3 mg/dL (1.8-2.4)
[2021-01-18 10:46] LABS: PHOSPHOROUS 3.8 mg/dL (2.5-4.9)
[2021-01-18] MEDS ORDERED: LACTATED RINGERS SOLUTION 1,000 ML/1,000 ML INFUS.BAG IV SCH (13:45)
[2021-01-18] MEDS: AMINO ACIDS/PROTEIN HYDROLYS 30 ML LIQUID.PKT PO SCH (17:45)
[2021-01-18] MEDS: INSULIN (LEVEMIR) 100 UNITS/ML UNITS SQ SCH (21:52)
[2021-01-19] MEDS: dilTIAZem HCL 50 MG/10 ML - 10 ML VIAL IVPUSH PRN ×2 (02:04→21:12)
[2021-01-19] MEDS: CHLORHEXIDINE GLUCONATE 4% CLEANSER FOR DECOLONIZATION TP SCH ×2 (06:51→23:10)
[2021-01-19] MEDS: INSULIN SLIDING SCALE (NOVOLOG) 1 VIAL SQ SCH ×3 (06:52→17:26)
[2021-01-19] MEDS: VASOPRESSIN 40 UNITS in SODIUM CHLORIDE 98 ML IVPB SCH (06:56)
[2021-01-19] MEDS: INSULIN (LEVEMIR) 100 UNITS/ML UNITS SQ SCH ×3 (06:56→23:11)
[2021-01-19 06:58] LABS: BASO % 0.1 % (0-2.0); HEMATOCRIT 18.2 % (35.4-49); LYMPH % 10.4 % (8-40); MCH 36.3 pg (25.7-33.7); MCHC 33.9 g/dl (32.0-35.9); MEAN CELL VOLUME 106.9 fl (80-96); MEAN PLT VOLUME 9.4 fl (7.5-11.1); MONO % 9.4 % (3.8-10.2); NEUT % 80.1 % (42.8-82.8); PLATELET COUNT 106 K/MM3 (134-434); RBC 1.71 M/mm3 (4.00-5.60); RDW 16.2 % (11.9-15.9); WHITE BLOOD COUNT 7.2 K/mm3 (4.0-10.0)
[2021-01-19 07:02] LABS: HEMOGLOBIN 6.2 GM/dL (11.7-16.9)
[2021-01-19 07:18] LABS: MAGNESIUM 2.1 mg/dL (1.8-2.4)
[2021-01-19 07:21] LABS: ALBUMIN 2.1 g/dl (3.4-5.0); CALCIUM 7.3 mg/dL (8.5-10.1)
[2021-01-19 07:22] LABS: PHOSPHOROUS 3.3 mg/dL (2.5-4.9)
[2021-01-19 07:24] LABS: CREATININE 1.5 mg/dL (0.55-1.3)
[2021-01-19 07:26] LABS: BILIRUBIN,TOTAL 0.6 mg/dL (0.2-1); TOT PROT 4.6 g/dl (6.4-8.2)
[2021-01-19 07:48] LABS: N-TERMINAL BNP 94815.6 pg/ml (5-125)
[2021-01-19 08:51] LABS: ANISOCYTOSIS 1+; MACROCYTOSIS 1+; PLATELET ESTIMATE DECREASED
[2021-01-19] MEDS ORDERED: MEROPENEM 1 GM VIAL (RESTRICTED TO ID) IVPB ONE ×2 (09:43→23:06)
[2021-01-19] MEDS ORDERED: DEXTROSE 5%-WATER 100 ML IVPB ONE ×2 (09:43→23:06)
[2021-01-19] MEDS ORDERED: PROPOFOL 1,000,000 MCG/100 ML VIAL ONE (09:44)
[2021-01-19] MEDS: AMINO ACIDS/PROTEIN HYDROLYS 30 ML LIQUID.PKT PO SCH ×2 (10:49→17:26)
[2021-01-19] MEDS: MUPIROCIN 2% TOPICAL OINTMENT FOR DECOLONIZATION NS SCH ×2 (10:49→23:09)
[2021-01-19] MEDS: MEROPENEM 1 GM in DEXTROSE 5%-WATER 100 ML IVPB SCH ×2 (10:50→23:10)
[2021-01-19] MEDS: MULTIVIT-MINERALS ORAL LIQUID PO SCH (10:50)
[2021-01-19] MEDS: OXYBUTYNIN CHLORIDE 5 MG TABLET PO SCH ×2 (10:54→23:09)
[2021-01-19] MEDS: methylPREDNISolone NA SUCC 40 MG/1 ML VIAL IVPB SCH (10:54)
[2021-01-19] MEDS: FINASTERIDE 5 MG TABLET (FP) PO SCH (10:54)
[2021-01-19] MEDS ORDERED: FUROSEMIDE 40 MG/4 ML INJECTABLE VIAL IVPUSH ONE (11:00)
[2021-01-19] MEDS: MULTIVIT INJ. ADULT COMBO WITH VIT K 1 COMBO 10 ML VIAL IV SCH (11:03)
[2021-01-19] MEDS ORDERED: EPOETIN ALFA-EPBX 10,000 UNIT/ML VIAL SQ ONE (13:36)
[2021-01-19] MEDS ORDERED: NOREPINEPHRINE BITARTRATE 8,000 MCG/500 ML BAG IVPB ONE (13:55)
[2021-01-19] MEDS: NOREPINEPHRINE NS PREMIX 8,000 MCG/500 ML BAG IVPB SCH (15:42)
[2021-01-19] MEDS ORDERED: METOPROLOL TARTRATE 5 MG/5 ML VIAL IVPUSH ONE (23:07)
[2021-01-19] MEDS ORDERED: MELATONIN 5 MG TABLETS PO ONE (23:53)
[2021-01-20 06:01] LABS: BASO % 0.1 % (0-2.0); LYMPH % 8.5 % (8-40); MCH 35.3 pg (25.7-33.7); MCHC 33.6 g/dl (32.0-35.9); MEAN CELL VOLUME 104.9 fl (80-96); MEAN PLT VOLUME 8.9 fl (7.5-11.1); MONO % 7.6 % (3.8-10.2); NEUT % 83.8 % (42.8-82.8); PLATELET COUNT 99 K/MM3 (134-434); RBC 1.77 M/mm3 (4.00-5.60); RDW 16.1 % (11.9-15.9); WHITE BLOOD COUNT 12.1 K/mm3 (4.0-10.0)
[2021-01-20 06:19] LABS: HEMATOCRIT 18.6 % (35.4-49); HEMOGLOBIN 6.3 GM/dL (11.7-16.9)
[2021-01-20] MEDS: INSULIN SLIDING SCALE (NOVOLOG) 1 VIAL SQ SCH ×3 (06:19→17:30)
[2021-01-20] MEDS: INSULIN (LEVEMIR) 100 UNITS/ML UNITS SQ SCH ×2 (06:22→22:52)
[2021-01-20 06:23] LABS: CALCIUM 7.4 mg/dL (8.5-10.1)
[2021-01-20 06:24] LABS: ALBUMIN 2.2 g/dl (3.4-5.0); BLOOD UREA NITROGEN 65.2 mg/dL (7-18)
[2021-01-20 06:27] LABS: CREATININE 1.4 mg/dL (0.55-1.3)
[2021-01-20 06:28] LABS: BILIRUBIN,TOTAL 0.7 mg/dL (0.2-1)
[2021-01-20 06:29] LABS: TOT PROT 4.8 g/dl (6.4-8.2)
[2021-01-20] MEDS: VASOPRESSIN 40 UNITS in SODIUM CHLORIDE 98 ML IVPB SCH (07:00)
[2021-01-20] MEDS: AMINO ACIDS/PROTEIN HYDROLYS 30 ML LIQUID.PKT PO SCH ×2 (08:45→17:42)
[2021-01-20 09:38] LABS: ANISOCYTOSIS 1+; MACROCYTOSIS 2+; PLATELET ESTIMATE DECREASED
[2021-01-20] MEDS ORDERED: DEXTROSE 5%-WATER 100 ML IVPB ONE ×2 (10:09→22:48)
[2021-01-20] MEDS ORDERED: MEROPENEM 1 GM VIAL (RESTRICTED TO ID) IVPB ONE ×2 (10:09→22:47)
[2021-01-20] MEDS: MUPIROCIN 2% TOPICAL OINTMENT FOR DECOLONIZATION NS SCH ×2 (10:22→22:51)
[2021-01-20] MEDS: OXYBUTYNIN CHLORIDE 5 MG TABLET PO SCH ×2 (10:22→22:52)
[2021-01-20] MEDS: MULTIVIT-MINERALS ORAL LIQUID PO SCH (10:22)
[2021-01-20] MEDS: MEROPENEM 1 GM in DEXTROSE 5%-WATER 100 ML IVPB SCH ×2 (10:23→22:52)
[2021-01-20] MEDS: FINASTERIDE 5 MG TABLET (FP) PO SCH (10:23)
[2021-01-20] MEDS: MULTIVIT INJ. ADULT COMBO WITH VIT K 1 COMBO 10 ML VIAL IV SCH (10:23)
[2021-01-20] MEDS ORDERED: FUROSEMIDE 40 MG/4 ML INJECTABLE VIAL IVPUSH ONE (11:31)
[2021-01-20] MEDS: NOREPINEPHRINE NS PREMIX 8,000 MCG/500 ML BAG IVPB SCH (17:41)
[2021-01-20] MEDS: CHLORHEXIDINE GLUCONATE 4% CLEANSER FOR DECOLONIZATION TP SCH (22:52)
[2021-01-21] MEDS ORDERED: DEXTROSE 50%-WATER 25 GM/50 ML DISP.SYRIN ONE (06:08)
[2021-01-21] MEDS ORDERED: DEXTROSE 50%-WATER - 25 GM/50 ML VIAL IVPUSH ONE (06:08)
[2021-01-21 06:26] LABS: BASO % 0.1 % (0-2.0); EOS % 0.2 % (0-4.5); HEMATOCRIT 15.8 % (35.4-49); LYMPH % 10.4 % (8-40); MCH 36.4 pg (25.7-33.7); MCHC 35.2 g/dl (32.0-35.9); MEAN CELL VOLUME 103.5 fl (80-96); MONO % 5.9 % (3.8-10.2); NEUT % 83.4 % (42.8-82.8); PLATELET COUNT 75 K/MM3 (134-434); RBC 1.53 M/mm3 (4.00-5.60); RDW 16.3 % (11.9-15.9); WHITE BLOOD COUNT 9.1 K/mm3 (4.0-10.0)
[2021-01-21 06:35] LABS: HEMOGLOBIN 5.6 GM/dL (11.7-16.9)
[2021-01-21 06:48] LABS: CHLORIDE 110 mmol/L (98-107); SODIUM 138 mmol/L (136-145)
[2021-01-21 06:52] LABS: CALCIUM 7.4 mg/dL (8.5-10.1)
[2021-01-21 06:53] LABS: ALBUMIN 1.9 g/dl (3.4-5.0); ANION GAP 7 MMOL/L (8-16); BLOOD UREA NITROGEN 55.6 mg/dL (7-18); CO2 21 mmol/L (21-32); GLUCOSE,RANDOM 53 mg/dL (74-106)
[2021-01-21 06:56] LABS: CREATININE 1.1 mg/dL (0.55-1.3); SGOT/AST 21 U/L (15-37); SGPT/ALT 115 U/L (13-61)
[2021-01-21] MEDS: INSULIN (LEVEMIR) 100 UNITS/ML UNITS SQ SCH ×2 (06:57→22:11)
[2021-01-21 06:58] LABS: BILIRUBIN,TOTAL 0.6 mg/dL (0.2-1); TOT PROT 4.5 g/dl (6.4-8.2)
[2021-01-21] MEDS: INSULIN SLIDING SCALE (NOVOLOG) 1 VIAL SQ SCH ×3 (06:58→18:44)
[2021-01-21 06:59] LABS: ALK PHOS 108 U/L (45-117)
[2021-01-21] MEDS: VASOPRESSIN 40 UNITS in SODIUM CHLORIDE 98 ML IVPB SCH (07:21)
[2021-01-21] MEDS ORDERED: KCL 10 MEQ IVPB 10 MEQ/100 ML INFUS.BAG IVPB SCH (09:15)
[2021-01-21 09:16] LABS: MAGNESIUM 1.7 mg/dL (1.8-2.4)
[2021-01-21 09:20] LABS: PHOSPHOROUS 3.6 mg/dL (2.5-4.9)
[2021-01-21] MEDS ORDERED: POTASSIUM CHLORIDE ORAL LIQUID 20 MEQ/15 ML PO ONE (09:34)
[2021-01-21] MEDS ORDERED: MEROPENEM 1 GM VIAL (RESTRICTED TO ID) IVPB ONE ×2 (10:01→22:09)
[2021-01-21] MEDS ORDERED: DEXTROSE 5%-WATER 100 ML IVPB ONE ×2 (10:01→22:09)
[2021-01-21] MEDS: FINASTERIDE 5 MG TABLET (FP) PO SCH (10:21)
[2021-01-21] MEDS: MEROPENEM 1 GM in DEXTROSE 5%-WATER 100 ML IVPB SCH ×2 (10:21→22:11)
[2021-01-21] MEDS: AMINO ACIDS/PROTEIN HYDROLYS 30 ML LIQUID.PKT PO SCH ×2 (10:21→16:55)
[2021-01-21] MEDS: MULTIVIT-MINERALS ORAL LIQUID PO SCH (10:22)
[2021-01-21] MEDS: NOREPINEPHRINE NS PREMIX 8,000 MCG/500 ML BAG IVPB SCH (10:22)
[2021-01-21] MEDS: OXYBUTYNIN CHLORIDE 5 MG TABLET PO SCH ×2 (10:23→22:11)
[2021-01-21 10:48] LABS: ANISOCYTOSIS 2+; MACROCYTOSIS 0; PLATELET ESTIMATE DECREASED
[2021-01-21] MEDS ORDERED: EPOETIN ALFA-EPBX 20,000 UNIT/ML VIAL SQ ONE (11:00)
[2021-01-21] MEDS ORDERED: MAGNESIUM SULF 50% (8.12 MEQ/2 ML-1 GM VIAL) IVPB ONE (16:00)
[2021-01-21 16:09] LABS: FREE KAPPA,SERUM 29.2 mg/L (3.3-19.4)
[2021-01-21] MEDS: CHLORHEXIDINE GLUCONATE 4% CLEANSER FOR DECOLONIZATION TP SCH (22:12)
[2021-01-22] MEDS ORDERED: MELATONIN 5 MG TABLETS PO ONE (03:03)
[2021-01-22 06:02] LABS: BASO % 0.2 % (0-2.0); EOS % 0.4 % (0-4.5); LYMPH % 8.4 % (8-40); MCH 35.2 pg (25.7-33.7); MCHC 33.8 g/dl (32.0-35.9); MEAN CELL VOLUME 104.2 fl (80-96); MEAN PLT VOLUME 9.7 fl (7.5-11.1); MONO % 4.7 % (3.8-10.2); NEUT % 86.3 % (42.8-82.8); PLATELET COUNT 92 K/MM3 (134-434); RBC 1.63 M/mm3 (4.00-5.60); RDW 16.3 % (11.9-15.9); WHITE BLOOD COUNT 12.5 K/mm3 (4.0-10.0)
[2021-01-22 06:09] LABS: HEMATOCRIT 16.9 % (35.4-49); HEMOGLOBIN 5.7 GM/dL (11.7-16.9)
[2021-01-22] MEDS: INSULIN SLIDING SCALE (NOVOLOG) 1 VIAL SQ SCH ×3 (06:25→17:47)
[2021-01-22] MEDS: INSULIN (LEVEMIR) 100 UNITS/ML UNITS SQ SCH ×2 (06:25→22:25)
[2021-01-22 06:31] LABS: CHLORIDE 107 mmol/L (98-107); SODIUM 137 mmol/L (136-145)
[2021-01-22 06:38] LABS: ALBUMIN 2.1 g/dl (3.4-5.0); ANION GAP 10 MMOL/L (8-16); BLOOD UREA NITROGEN 51.6 mg/dL (7-18); CALCIUM 7.6 mg/dL (8.5-10.1); CO2 20 mmol/L (21-32)
[2021-01-22 06:41] LABS: GLUCOSE,RANDOM 99 mg/dL (74-106); SGOT/AST 20 U/L (15-37); SGPT/ALT 96 U/L (13-61)
[2021-01-22 06:43] LABS: BILIRUBIN,TOTAL 0.6 mg/dL (0.2-1); TOT PROT 4.8 g/dl (6.4-8.2)
[2021-01-22 06:44] LABS: ALK PHOS 124 U/L (45-117)
[2021-01-22] MEDS ORDERED: EPOETIN ALFA-EPBX 20,000 UNIT/ML VIAL SQ ONE (09:32)
[2021-01-22] MEDS ORDERED: MEROPENEM 1 GM VIAL (RESTRICTED TO ID) IVPB ONE ×2 (10:22→22:22)
[2021-01-22] MEDS ORDERED: DEXTROSE 5%-WATER 100 ML IVPB ONE ×2 (10:22→22:22)
[2021-01-22] MEDS ORDERED: PT OWN MED DRAWER 7, Y5N ONE (10:26)
[2021-01-22] MEDS: MEROPENEM 1 GM in DEXTROSE 5%-WATER 100 ML IVPB SCH ×2 (10:50→22:25)
[2021-01-22] MEDS: OXYBUTYNIN CHLORIDE 5 MG TABLET PO SCH ×2 (10:51→22:25)
[2021-01-22] MEDS: FINASTERIDE 5 MG TABLET (FP) PO SCH (10:51)
[2021-01-22] MEDS: MULTIVIT-MINERALS ORAL LIQUID PO SCH (10:51)
[2021-01-22] MEDS: NOREPINEPHRINE NS PREMIX 8,000 MCG/500 ML BAG IVPB SCH (10:52)
[2021-01-22] MEDS: FOLIC ACID 1 MG TABLET (FP) PO SCH (10:52)
[2021-01-22] MEDS: AMINO ACIDS/PROTEIN HYDROLYS 30 ML LIQUID.PKT PO SCH ×2 (10:52→17:44)
[2021-01-22] MEDS: VASOPRESSIN 40 UNITS in SODIUM CHLORIDE 98 ML IVPB SCH (10:52)
[2021-01-22] MEDS: CYANOCOBALAMIN (VITAMIN B-12) 1000 MCG/1 ML VIAL IM SCH (13:00)
[2021-01-22 15:02] VITALS: BMI 25.7
[2021-01-22] MEDS: CHLORHEXIDINE GLUCONATE 4% CLEANSER FOR DECOLONIZATION TP SCH (22:46)
[2021-01-23] MEDS: INSULIN (LEVEMIR) 100 UNITS/ML UNITS SQ SCH ×2 (06:35→22:45)
[2021-01-23] MEDS: INSULIN SLIDING SCALE (NOVOLOG) 1 VIAL SQ SCH ×3 (06:35→17:52)
[2021-01-23 07:08] LABS: HEMATOCRIT 17.5 % (35.4-49); MCH 34.9 pg (25.7-33.7); MEAN CELL VOLUME 105.7 fl (80-96); MEAN PLT VOLUME 10.2 fl (7.5-11.1); PLATELET COUNT 103 K/MM3 (134-434); RBC 1.66 M/mm3 (4.00-5.60); RDW 16.5 % (11.9-15.9); WHITE BLOOD COUNT 11.9 K/mm3 (4.0-10.0)
[2021-01-23 07:49] LABS: HEMOGLOBIN 5.8 GM/dL (11.7-16.9)
[2021-01-23] MEDS: AMINO ACIDS/PROTEIN HYDROLYS 30 ML LIQUID.PKT PO SCH ×2 (09:05→17:56)
[2021-01-23] MEDS: VASOPRESSIN 40 UNITS in SODIUM CHLORIDE 98 ML IVPB SCH (09:05)
[2021-01-23] MEDS ORDERED: MEROPENEM 1 GM VIAL (RESTRICTED TO ID) IVPB ONE ×2 (10:01→21:04)
[2021-01-23] MEDS ORDERED: DEXTROSE 5%-WATER 100 ML IVPB ONE ×2 (10:01→21:05)
[2021-01-23] MEDS ORDERED: PT OWN MED DRAWER 7, Y5N ONE (10:02)
[2021-01-23] MEDS: MEROPENEM 1 GM in DEXTROSE 5%-WATER 100 ML IVPB SCH ×2 (10:06→21:48)
[2021-01-23] MEDS: OXYBUTYNIN CHLORIDE 5 MG TABLET PO SCH ×2 (10:06→21:46)
[2021-01-23] MEDS: FOLIC ACID 1 MG TABLET (FP) PO SCH (10:06)
[2021-01-23] MEDS: MULTIVIT-MINERALS ORAL LIQUID PO SCH (10:06)
[2021-01-23] MEDS: FINASTERIDE 5 MG TABLET (FP) PO SCH (10:07)
[2021-01-23] MEDS: CYANOCOBALAMIN (VITAMIN B-12) 1000 MCG/1 ML VIAL IM SCH (10:07)
[2021-01-23] MEDS: COLLAGENASE CLOSTRIDIUM HIST. 30 GRAMS TUBE TP SCH (13:09)
[2021-01-23] MEDS ORDERED: MIDAZOLAM HCL 5 MG/1 ML Single Dose Vial ONE (13:22)
[2021-01-23] MEDS ORDERED: RAPID SEQUENCE INTUBATION KIT NR ONE (13:22)
[2021-01-23] MEDS: NOREPINEPHRINE NS PREMIX 8,000 MCG/500 ML BAG IVPB SCH (17:52)
[2021-01-23] MEDS: MAG HYDROX/ALH/SMC/DPHA/LIDO 240 ML MOUTHWASH MM SCH (17:56)
[2021-01-23] MEDS ORDERED: EPOETIN ALFA-EPBX 20,000 UNIT/ML VIAL SQ ONE (18:23)
[2021-01-23] MEDS: CHLORHEXIDINE GLUCONATE 4% CLEANSER FOR DECOLONIZATION TP SCH (21:48)
[2021-01-24] MEDS: NOREPINEPHRINE NS PREMIX 8,000 MCG/500 ML BAG IVPB SCH (00:30)
[2021-01-24] MEDS: BENZOCAINE/MENTH/CETYLPYRD CL 1 EACH LOZENGE MM PRN (00:39)
[2021-01-24] MEDS: VASOPRESSIN 40 UNITS in SODIUM CHLORIDE 98 ML IVPB SCH (03:15)
[2021-01-24] MEDS: MAG HYDROX/ALH/SMC/DPHA/LIDO 240 ML MOUTHWASH MM SCH ×4 (05:40→18:17)
[2021-01-24] MEDS: INSULIN SLIDING SCALE (NOVOLOG) 1 VIAL SQ SCH ×3 (06:17→18:17)
[2021-01-24] MEDS: INSULIN (LEVEMIR) 100 UNITS/ML UNITS SQ SCH ×3 (06:17→22:55)
[2021-01-24 06:46] LABS: EOS % 0.2 % (0-4.5); LYMPH % 6.8 % (8-40); MCH 34.6 pg (25.7-33.7); MCHC 33.2 g/dl (32.0-35.9); MEAN CELL VOLUME 104.2 fl (80-96); MEAN PLT VOLUME 9.7 fl (7.5-11.1); MONO % 4.6 % (3.8-10.2); NEUT % 88.4 % (42.8-82.8); PLATELET COUNT 105 K/MM3 (134-434); RBC 1.66 M/mm3 (4.00-5.60); RDW 16.6 % (11.9-15.9); WHITE BLOOD COUNT 14.1 K/mm3 (4.0-10.0)
[2021-01-24 06:58] LABS: HEMOGLOBIN 5.7 GM/dL (11.7-16.9)
[2021-01-24 06:59] LABS: HEMATOCRIT 17.3 % (35.4-49)
[2021-01-24 07:02] LABS: CHLORIDE 109 mmol/L (98-107); SODIUM 139 mmol/L (136-145)
[2021-01-24 07:04] LABS: ANION GAP 9 MMOL/L (8-16); BLOOD UREA NITROGEN 39.3 mg/dL (7-18); CALCIUM 7.5 mg/dL (8.5-10.1); CO2 21 mmol/L (21-32)
[2021-01-24 07:07] LABS: CREATININE 0.7 mg/dL (0.55-1.3); SGOT/AST 14 U/L (15-37); SGPT/ALT 49 U/L (13-61)
[2021-01-24 07:09] LABS: BILIRUBIN,TOTAL 0.6 mg/dL (0.2-1); TOT PROT 4.6 g/dl (6.4-8.2)
[2021-01-24 07:10] LABS: ALK PHOS 111 U/L (45-117)
[2021-01-24 07:22] LABS: GLUCOSE,RANDOM 34 mg/dL (74-106)
[2021-01-24] MEDS ORDERED: DEXTROSE 50%-WATER 25 GM/50 ML DISP.SYRIN ONE (07:41)
[2021-01-24] MEDS ORDERED: DEXTROSE 50%-WATER - 25 GM/50 ML VIAL IVPUSH ONE (07:43)
[2021-01-24] MEDS: AMINO ACIDS/PROTEIN HYDROLYS 30 ML LIQUID.PKT PO SCH ×2 (08:54→18:17)
[2021-01-24] MEDS ORDERED: MEROPENEM 1 GM VIAL (RESTRICTED TO ID) IVPB ONE ×2 (09:14→20:55)
[2021-01-24] MEDS ORDERED: DEXTROSE 5%-WATER 100 ML IVPB ONE ×2 (09:15→20:55)
[2021-01-24] MEDS: MEROPENEM 1 GM in DEXTROSE 5%-WATER 100 ML IVPB SCH ×2 (09:54→22:15)
[2021-01-24] MEDS: OXYBUTYNIN CHLORIDE 5 MG TABLET PO SCH ×2 (09:54→22:15)
[2021-01-24] MEDS: FOLIC ACID 1 MG TABLET (FP) PO SCH (09:54)
[2021-01-24] MEDS: FINASTERIDE 5 MG TABLET (FP) PO SCH (09:54)
[2021-01-24] MEDS: MULTIVIT-MINERALS ORAL LIQUID PO SCH (09:54)
[2021-01-24] MEDS: COLLAGENASE CLOSTRIDIUM HIST. 30 GRAMS TUBE TP SCH (09:55)
[2021-01-24] MEDS: CYANOCOBALAMIN (VITAMIN B-12) 1000 MCG/1 ML VIAL IM SCH (10:00)
[2021-01-24] MEDS ORDERED: PT OWN MED DRAWER 7, Y5N ONE ×2 (17:53→17:58)
[2021-01-24] MEDS: EPOETIN ALFA-EPBX 20,000 UNIT/ML VIAL SQ SCH (18:44)
[2021-01-24] MEDS ORDERED: MELATONIN 5 MG TABLETS PO ONE (21:20)
[2021-01-24] MEDS: CHLORHEXIDINE GLUCONATE 4% CLEANSER FOR DECOLONIZATION TP SCH (22:16)
[2021-01-25] MEDS: NOREPINEPHRINE NS PREMIX 8,000 MCG/500 ML BAG IVPB SCH (00:30)
[2021-01-25] MEDS: VASOPRESSIN 40 UNITS in SODIUM CHLORIDE 98 ML IVPB SCH (03:15)
[2021-01-25] MEDS: MAG HYDROX/ALH/SMC/DPHA/LIDO 240 ML MOUTHWASH MM SCH ×5 (05:19→23:54)
[2021-01-25] MEDS: INSULIN (LEVEMIR) 100 UNITS/ML UNITS SQ SCH (07:40)
[2021-01-25] MEDS: INSULIN SLIDING SCALE (NOVOLOG) 1 VIAL SQ SCH ×3 (07:40→18:26)
[2021-01-25] MEDS ORDERED: DEXTROSE 5%-WATER 100 ML IVPB ONE ×2 (09:36→21:23)
[2021-01-25] MEDS ORDERED: MEROPENEM 1 GM VIAL (RESTRICTED TO ID) IVPB ONE ×2 (09:36→21:23)
[2021-01-25] MEDS ORDERED: PT OWN MED DRAWER 7, Y5N ONE ×2 (09:37→18:13)
[2021-01-25] MEDS: AMINO ACIDS/PROTEIN HYDROLYS 30 ML LIQUID.PKT PO SCH ×2 (09:46→18:11)
[2021-01-25] MEDS: MULTIVIT-MINERALS ORAL LIQUID PO SCH (10:46)
[2021-01-25] MEDS: FOLIC ACID 1 MG TABLET (FP) PO SCH (10:46)
[2021-01-25] MEDS: CYANOCOBALAMIN (VITAMIN B-12) 1000 MCG/1 ML VIAL IM SCH (10:46)
[2021-01-25] MEDS: MEROPENEM 1 GM in DEXTROSE 5%-WATER 100 ML IVPB SCH ×2 (10:46→22:19)
[2021-01-25] MEDS: OXYBUTYNIN CHLORIDE 5 MG TABLET PO SCH ×2 (10:46→22:19)
[2021-01-25] MEDS: COLLAGENASE CLOSTRIDIUM HIST. 30 GRAMS TUBE TP SCH (10:46)
[2021-01-25] MEDS: FINASTERIDE 5 MG TABLET (FP) PO SCH (10:46)
[2021-01-25] MEDS: EPOETIN ALFA-EPBX 20,000 UNIT/ML VIAL SQ SCH (19:15)
[2021-01-25] MEDS: BENZOCAINE/MENTH/CETYLPYRD CL 1 EACH LOZENGE MM PRN (21:40)
[2021-01-25] MEDS: CHLORHEXIDINE GLUCONATE 4% CLEANSER FOR DECOLONIZATION TP SCH (22:19)
[2021-01-25] MEDS: MELATONIN 5 MG TABLETS PO PRN (22:20)
[2021-01-26] MEDS: MAG HYDROX/ALH/SMC/DPHA/LIDO 240 ML MOUTHWASH MM SCH ×3 (05:12→18:27)
[2021-01-26] MEDS: INSULIN SLIDING SCALE (NOVOLOG) 1 VIAL SQ SCH ×3 (06:31→17:32)
[2021-01-26] MEDS ORDERED: PT OWN MED DRAWER 7, Y5N ONE ×2 (07:55→11:01)
[2021-01-26] MEDS: AMINO ACIDS/PROTEIN HYDROLYS 30 ML LIQUID.PKT PO SCH ×2 (09:11→18:27)
[2021-01-26] MEDS: FINASTERIDE 5 MG TABLET (FP) PO SCH (09:11)
[2021-01-26] MEDS: OXYBUTYNIN CHLORIDE 5 MG TABLET PO SCH (09:11)
[2021-01-26] MEDS: MULTIVIT-MINERALS ORAL LIQUID PO SCH (09:12)
[2021-01-26] MEDS: EPOETIN ALFA-EPBX 20,000 UNIT/ML VIAL SQ SCH (09:12)
[2021-01-26] MEDS: FOLIC ACID 1 MG TABLET (FP) PO SCH (09:12)
[2021-01-26] MEDS: COLLAGENASE CLOSTRIDIUM HIST. 30 GRAMS TUBE TP SCH (11:25)
[2021-01-26] MEDS: CYANOCOBALAMIN (VITAMIN B-12) 1000 MCG/1 ML VIAL IM SCH (11:26)
[2021-01-26] MEDS: NYSTATIN 500,000 UNITS/5 ML SUSPENSION PO SCH ×2 (13:00→18:27)
[2021-01-26] MEDS: MELATONIN 5 MG TABLETS PO PRN (21:42)
[2021-01-26] MEDS: CHLORHEXIDINE GLUCONATE 4% CLEANSER FOR DECOLONIZATION TP SCH (21:43)
[2021-01-26] MEDS ORDERED: ACETAMINOPHEN 1000 MG/100 ML BAG IVPB ONE (22:47)
[2021-01-26] MEDS ORDERED: ALPRAZolam 0.25 MG TABLET PO ONE (22:50)
[2021-01-27] MEDS: MAG HYDROX/ALH/SMC/DPHA/LIDO 240 ML MOUTHWASH MM SCH ×5 (05:38→17:53)
[2021-01-27] MEDS: NYSTATIN 500,000 UNITS/5 ML SUSPENSION PO SCH ×5 (05:38→17:53)
[2021-01-27] MEDS: INSULIN SLIDING SCALE (NOVOLOG) 1 VIAL SQ SCH ×3 (06:54→17:13)
[2021-01-27] MEDS ORDERED: PT OWN MED DRAWER 7, Y5N ONE ×2 (09:52→21:47)
[2021-01-27] MEDS: MULTIVIT-MINERALS ORAL LIQUID PO SCH (09:53)
[2021-01-27] MEDS: FOLIC ACID 1 MG TABLET (FP) PO SCH (09:53)
[2021-01-27] MEDS: CYANOCOBALAMIN (VITAMIN B-12) 1000 MCG/1 ML VIAL IM SCH (09:54)
[2021-01-27] MEDS: FINASTERIDE 5 MG TABLET (FP) PO SCH (09:54)
[2021-01-27] MEDS: AMINO ACIDS/PROTEIN HYDROLYS 30 ML LIQUID.PKT PO SCH ×3 (09:54→17:53)
[2021-01-27 11:46] LABS: HEMATOCRIT 20.2 % (35.4-49); MCH 34.7 pg (25.7-33.7); MCHC 32.8 g/dl (32.0-35.9); MEAN PLT VOLUME 9.2 fl (7.5-11.1); PLATELET COUNT 106 K/MM3 (134-434); RBC 1.91 M/mm3 (4.00-5.60); RDW 17.6 % (11.9-15.9); WHITE BLOOD COUNT 8.8 K/mm3 (4.0-10.0)
[2021-01-27 11:50] LABS: HEMOGLOBIN 6.6 GM/dL (11.7-16.9)
[2021-01-27] MEDS: MEROPENEM 1 GM in DEXTROSE 5%-WATER 100 ML IVPB SCH (12:35)
[2021-01-27] MEDS: COLLAGENASE CLOSTRIDIUM HIST. 30 GRAMS TUBE TP SCH (12:59)
[2021-01-27] MEDS: ESCITALOPRAM OXALATE 10 MG TABLET PO SCH (12:59)
[2021-01-27] MEDS ORDERED: BENZOCAINE/MENTH/CETYLPYRD CL 1 EACH LOZENGE MM PRN (17:14)
[2021-01-27] MEDS ORDERED: dilTIAZem HCL 50 MG/10 ML - 10 ML VIAL IVPUSH PRN (17:14)
[2021-01-27] MEDS ORDERED: CHLORHEXIDINE GLUCONATE 4% CLEANSER FOR DECOLONIZATION TP SCH (22:00)
[2021-01-27] MEDS: MELATONIN 5 MG TABLETS PO PRN (22:45)
[2021-01-27] MEDS: risperiDONE 1 MG TABLET PO SCH (22:45)
[2021-01-27] MEDS: MIRTAZAPINE 15 MG TABLET (FP) PO SCH (22:45)
[2021-01-28] MEDS: NYSTATIN 500,000 UNITS/5 ML SUSPENSION PO SCH ×5 (01:13→23:59)
[2021-01-28] MEDS: MAG HYDROX/ALH/SMC/DPHA/LIDO 240 ML MOUTHWASH MM SCH ×5 (01:24→23:59)
[2021-01-28] MEDS: ACETAMINOPHEN 325 MG TABLET (FP) PO PRN (02:22)
[2021-01-28] MEDS: INSULIN SLIDING SCALE (NOVOLOG) 1 VIAL SQ SCH ×3 (06:08→17:23)
[2021-01-28] MEDS: COLLAGENASE CLOSTRIDIUM HIST. 30 GRAMS TUBE TP SCH ×2 (06:56→09:43)
[2021-01-28] MEDS: CYANOCOBALAMIN (VITAMIN B-12) 1000 MCG/1 ML VIAL IM SCH (09:42)
[2021-01-28] MEDS: AMINO ACIDS/PROTEIN HYDROLYS 30 ML LIQUID.PKT PO SCH ×2 (09:42→17:23)
[2021-01-28] MEDS: FOLIC ACID 1 MG TABLET (FP) PO SCH (09:43)
[2021-01-28] MEDS: FINASTERIDE 5 MG TABLET (FP) PO SCH (09:43)
[2021-01-28] MEDS: risperiDONE 1 MG TABLET PO SCH ×2 (09:43→21:11)
[2021-01-28] MEDS: MULTIVIT-MINERALS ORAL LIQUID PO SCH (09:43)
[2021-01-28] MEDS: ESCITALOPRAM OXALATE 10 MG TABLET PO SCH (09:43)
[2021-01-28] MEDS ORDERED: PT OWN MED DRAWER 7, Y5N ONE (20:48)
[2021-01-28] MEDS: MIRTAZAPINE 15 MG TABLET (FP) PO SCH (21:11)
[2021-01-29] MEDS: NYSTATIN 500,000 UNITS/5 ML SUSPENSION PO SCH ×4 (05:44→23:52)
[2021-01-29] MEDS: MAG HYDROX/ALH/SMC/DPHA/LIDO 240 ML MOUTHWASH MM SCH ×4 (05:44→23:52)
[2021-01-29] MEDS: INSULIN SLIDING SCALE (NOVOLOG) 1 VIAL SQ SCH ×3 (06:35→17:26)
[2021-01-29] MEDS: AMINO ACIDS/PROTEIN HYDROLYS 30 ML LIQUID.PKT PO SCH ×2 (09:27→17:06)
[2021-01-29] MEDS: MULTIVIT-MINERALS ORAL LIQUID PO SCH (09:27)
[2021-01-29] MEDS: FOLIC ACID 1 MG TABLET (FP) PO SCH (09:28)
[2021-01-29] MEDS: CYANOCOBALAMIN (VITAMIN B-12) 1000 MCG/1 ML VIAL IM SCH (09:28)
[2021-01-29] MEDS: FINASTERIDE 5 MG TABLET (FP) PO SCH (09:28)
[2021-01-29] MEDS: metoPROLOL SUCCINATE 25 MG TAB.SR.24H (FP) PO SCH (09:28)
[2021-01-29] MEDS: ESCITALOPRAM OXALATE 10 MG TABLET PO SCH (09:28)
[2021-01-29] MEDS: COLLAGENASE CLOSTRIDIUM HIST. 30 GRAMS TUBE TP SCH (09:28)
[2021-01-29] MEDS: risperiDONE 1 MG TABLET PO SCH ×2 (10:46→21:04)
[2021-01-29 11:01] LABS: BLOOD UREA NITROGEN 21.1 mg/dL (7-18); CALCIUM 7.5 mg/dL (8.5-10.1)
[2021-01-29 11:05] LABS: CREATININE 0.8 mg/dL (0.55-1.3)
[2021-01-29] MEDS: MIRTAZAPINE 15 MG TABLET (FP) PO SCH (21:04)
[2021-01-29] MEDS: MELATONIN 5 MG TABLETS PO PRN (21:05)
[2021-01-30] MEDS: INSULIN SLIDING SCALE (NOVOLOG) 1 VIAL SQ SCH ×3 (06:11→16:56)
[2021-01-30] MEDS: MAG HYDROX/ALH/SMC/DPHA/LIDO 240 ML MOUTHWASH MM SCH ×3 (06:12→17:08)
[2021-01-30] MEDS: NYSTATIN 500,000 UNITS/5 ML SUSPENSION PO SCH ×3 (06:12→17:04)
[2021-01-30] MEDS ORDERED: PT OWN MED DRAWER 7, Y5N ONE ×2 (06:20→22:09)
[2021-01-30 08:06] LABS: SARS-CoV-2 NAA Not Detected (Not Detected)
[2021-01-30] MEDS: MULTIVIT-MINERALS ORAL LIQUID PO SCH (10:31)
[2021-01-30] MEDS: ESCITALOPRAM OXALATE 10 MG TABLET PO SCH (10:31)
[2021-01-30] MEDS: CYANOCOBALAMIN (VITAMIN B-12) 1000 MCG/1 ML VIAL IM SCH (10:31)
[2021-01-30] MEDS: metoPROLOL SUCCINATE 25 MG TAB.SR.24H (FP) PO SCH (10:31)
[2021-01-30] MEDS: AMINO ACIDS/PROTEIN HYDROLYS 30 ML LIQUID.PKT PO SCH ×2 (10:31→17:04)
[2021-01-30] MEDS: FOLIC ACID 1 MG TABLET (FP) PO SCH (10:31)
[2021-01-30] MEDS: FINASTERIDE 5 MG TABLET (FP) PO SCH (10:31)
[2021-01-30] MEDS: risperiDONE 1 MG TABLET PO SCH ×2 (10:32→22:15)
[2021-01-30] MEDS: COLLAGENASE CLOSTRIDIUM HIST. 30 GRAMS TUBE TP SCH (10:32)
[2021-01-30] MEDS: MIRTAZAPINE 15 MG TABLET (FP) PO SCH (22:15)
[2021-01-31] MEDS ORDERED: PT OWN MED DRAWER 7, Y5N ONE ×2 (00:27→21:44)
[2021-01-31] MEDS: NYSTATIN 500,000 UNITS/5 ML SUSPENSION PO SCH ×4 (00:32→17:18)
[2021-01-31] MEDS: MAG HYDROX/ALH/SMC/DPHA/LIDO 240 ML MOUTHWASH MM SCH ×4 (00:32→17:18)
[2021-01-31] MEDS: INSULIN SLIDING SCALE (NOVOLOG) 1 VIAL SQ SCH ×3 (06:02→17:29)
[2021-01-31 08:38] LABS: BASO % 0.6 % (0-2.0); EOS % 0.6 % (0-4.5); HEMATOCRIT 20.7 % (35.4-49); LYMPH % 15.4 % (8-40); MCH 35.3 pg (25.7-33.7); MCHC 32.6 g/dl (32.0-35.9); MEAN CELL VOLUME 108.4 fl (80-96); MEAN PLT VOLUME 9.4 fl (7.5-11.1); MONO % 7.6 % (3.8-10.2); NEUT % 75.8 % (42.8-82.8); PLATELET COUNT 73 K/MM3 (134-434); RBC 1.91 M/mm3 (4.00-5.60); RDW 21.6 % (11.9-15.9); WHITE BLOOD COUNT 4.1 K/mm3 (4.0-10.0)
[2021-01-31 08:42] LABS: HEMOGLOBIN 6.7 GM/dL (11.7-16.9)
[2021-01-31] MEDS: FOLIC ACID 1 MG TABLET (FP) PO SCH (09:37)
[2021-01-31] MEDS: ESCITALOPRAM OXALATE 10 MG TABLET PO SCH (09:37)
[2021-01-31] MEDS: FINASTERIDE 5 MG TABLET (FP) PO SCH (09:37)
[2021-01-31] MEDS: metoPROLOL SUCCINATE 25 MG TAB.SR.24H (FP) PO SCH (09:38)
[2021-01-31] MEDS: CYANOCOBALAMIN (VITAMIN B-12) 1000 MCG/1 ML VIAL IM SCH (09:38)
[2021-01-31] MEDS: AMINO ACIDS/PROTEIN HYDROLYS 30 ML LIQUID.PKT PO SCH ×2 (09:39→17:18)
[2021-01-31 09:42] LABS: ANISOCYTOSIS 2+; MACROCYTOSIS 2+; PLATELET ESTIMATE DECREASED
[2021-01-31] MEDS: risperiDONE 1 MG TABLET PO SCH ×2 (09:43→21:55)
[2021-01-31] MEDS: MULTIVIT-MINERALS ORAL LIQUID PO SCH (09:43)
[2021-01-31] MEDS: COLLAGENASE CLOSTRIDIUM HIST. 30 GRAMS TUBE TP SCH (09:55)
[2021-01-31] MEDS: MIRTAZAPINE 15 MG TABLET (FP) PO SCH (21:56)
[2021-02-01] MEDS: NYSTATIN 500,000 UNITS/5 ML SUSPENSION PO SCH ×4 (00:55→17:51)
[2021-02-01] MEDS: MAG HYDROX/ALH/SMC/DPHA/LIDO 240 ML MOUTHWASH MM SCH ×4 (00:55→17:51)
[2021-02-01] MEDS: INSULIN SLIDING SCALE (NOVOLOG) 1 VIAL SQ SCH ×3 (06:21→17:53)
[2021-02-01] MEDS ORDERED: PT OWN MED DRAWER 7, Y5N ONE ×2 (09:28→21:19)
[2021-02-01] MEDS: MULTIVIT-MINERALS ORAL LIQUID PO SCH (09:47)
[2021-02-01] MEDS: AMINO ACIDS/PROTEIN HYDROLYS 30 ML LIQUID.PKT PO SCH ×2 (09:47→17:51)
[2021-02-01] MEDS: risperiDONE 1 MG TABLET PO SCH ×2 (09:47→21:21)
[2021-02-01] MEDS: FINASTERIDE 5 MG TABLET (FP) PO SCH (09:47)
[2021-02-01] MEDS: ESCITALOPRAM OXALATE 10 MG TABLET PO SCH (09:47)
[2021-02-01] MEDS: FOLIC ACID 1 MG TABLET (FP) PO SCH (09:47)
[2021-02-01] MEDS: COLLAGENASE CLOSTRIDIUM HIST. 30 GRAMS TUBE TP SCH (09:48)
[2021-02-01] MEDS: metoPROLOL SUCCINATE 25 MG TAB.SR.24H (FP) PO SCH (09:48)
[2021-02-01] MEDS: CYANOCOBALAMIN (VITAMIN B-12) 1000 MCG/1 ML VIAL IM SCH (09:48)
[2021-02-01] MEDS: MIRTAZAPINE 15 MG TABLET (FP) PO SCH (21:21)
[2021-02-02] MEDS: NYSTATIN 500,000 UNITS/5 ML SUSPENSION PO SCH ×2 (00:45→06:05)
[2021-02-02] MEDS: MAG HYDROX/ALH/SMC/DPHA/LIDO 240 ML MOUTHWASH MM SCH ×4 (00:45→17:11)
[2021-02-02] MEDS: INSULIN SLIDING SCALE (NOVOLOG) 1 VIAL SQ SCH ×3 (06:05→17:17)
[2021-02-02] MEDS ORDERED: PT OWN MED DRAWER 7, Y5N ONE ×5 (06:32→22:43)
[2021-02-02] MEDS: risperiDONE 1 MG TABLET PO SCH ×2 (09:09→21:29)
[2021-02-02] MEDS: metoPROLOL SUCCINATE 25 MG TAB.SR.24H (FP) PO SCH (09:09)
[2021-02-02] MEDS: MULTIVIT-MINERALS ORAL LIQUID PO SCH (09:09)
[2021-02-02] MEDS: AMINO ACIDS/PROTEIN HYDROLYS 30 ML LIQUID.PKT PO SCH ×2 (09:09→17:11)
[2021-02-02] MEDS: FINASTERIDE 5 MG TABLET (FP) PO SCH (09:10)
[2021-02-02] MEDS: FOLIC ACID 1 MG TABLET (FP) PO SCH (09:10)
[2021-02-02] MEDS: CYANOCOBALAMIN (VITAMIN B-12) 1000 MCG/1 ML VIAL IM SCH (09:10)
[2021-02-02] MEDS: ESCITALOPRAM OXALATE 10 MG TABLET PO SCH (09:10)
[2021-02-02] MEDS: COLLAGENASE CLOSTRIDIUM HIST. 30 GRAMS TUBE TP SCH (13:54)
[2021-02-02 15:05] LABS: EPI CELLS 9 /uL (0-25.1); HYALINE CASTS 1 /uL (0-3.1); PH,URINE 5.5 (5.0-8.0); URINE APPEARANCE CLEAR; URINE BACTERIA 49 /uL (0-1359); URINE BILIRUBIN NEGATIVE (NEGATIVE); URINE COLOR YELLOW; URINE GLUCOSE (UA) NEGATIVE (NEGATIVE); URINE KETONE NEGATIVE (NEGATIVE); URINE LEUK ESTERASE 2+ (NEGATIVE); URINE NITRITE NEGATIVE (NEGATIVE); URINE PROTEIN NEGATIVE (NEGATIVE); URINE RBC 19 /uL (0-23.9); URINE UROBILINOGEN 0.2 mg/dL (0.2-1.0); URINE WBC 322 /uL (0-25.8)
[2021-02-02 15:20] LABS: YEAST MODERATE (NEGATIVE)
[2021-02-02] MEDS: MIRTAZAPINE 15 MG TABLET (FP) PO SCH (21:29)
[2021-02-03] MEDS ORDERED: PT OWN MED DRAWER 7, Y5N ONE ×2 (01:17→21:01)
[2021-02-03] MEDS: MAG HYDROX/ALH/SMC/DPHA/LIDO 240 ML MOUTHWASH MM SCH ×4 (01:25→17:01)
[2021-02-03] MEDS: INSULIN SLIDING SCALE (NOVOLOG) 1 VIAL SQ SCH ×3 (06:05→17:39)
[2021-02-03 07:23] LABS: HEMATOCRIT 20.7 % (35.4-49); MCH 36.7 pg (25.7-33.7); MCHC 32.9 g/dl (32.0-35.9); MEAN CELL VOLUME 111.3 fl (80-96); MEAN PLT VOLUME 9.8 fl (7.5-11.1); PLATELET COUNT 65 K/MM3 (134-434); RBC 1.86 M/mm3 (4.00-5.60); RDW 24.2 % (11.9-15.9); WHITE BLOOD COUNT 2.8 K/mm3 (4.0-10.0)
[2021-02-03 07:35] LABS: BLOOD UREA NITROGEN 18.7 mg/dL (7-18); CALCIUM 7.5 mg/dL (8.5-10.1)
[2021-02-03 07:38] LABS: CREATININE 0.7 mg/dL (0.55-1.3)
[2021-02-03 07:41] LABS: HEMOGLOBIN 6.8 GM/dL (11.7-16.9)
[2021-02-03] MEDS: risperiDONE 1 MG TABLET PO SCH ×2 (10:35→21:46)
[2021-02-03] MEDS: AMINO ACIDS/PROTEIN HYDROLYS 30 ML LIQUID.PKT PO SCH ×2 (10:35→17:01)
[2021-02-03] MEDS: MULTIVIT-MINERALS ORAL LIQUID PO SCH (10:35)
[2021-02-03] MEDS: FINASTERIDE 5 MG TABLET (FP) PO SCH (10:35)
[2021-02-03] MEDS: FOLIC ACID 1 MG TABLET (FP) PO SCH (10:35)
[2021-02-03] MEDS: ESCITALOPRAM OXALATE 10 MG TABLET PO SCH (10:35)
[2021-02-03] MEDS: CYANOCOBALAMIN (VITAMIN B-12) 1000 MCG/1 ML VIAL IM SCH (10:36)
[2021-02-03] MEDS: metoPROLOL SUCCINATE 25 MG TAB.SR.24H (FP) PO SCH (10:36)
[2021-02-03] MEDS: COLLAGENASE CLOSTRIDIUM HIST. 30 GRAMS TUBE TP SCH (12:29)
[2021-02-03] MEDS ORDERED: INSULIN (NOVOLOG) ASPART 100 UNITS/ML 10ML VIAL ONE (17:20)
[2021-02-03] MEDS: MIRTAZAPINE 15 MG TABLET (FP) PO SCH (21:46)
[2021-02-03] MEDS: ACETAMINOPHEN 325 MG TABLET (FP) PO PRN (21:48)
[2021-02-04] MEDS: MAG HYDROX/ALH/SMC/DPHA/LIDO 240 ML MOUTHWASH MM SCH ×5 (01:06→23:26)
[2021-02-04] MEDS: INSULIN SLIDING SCALE (NOVOLOG) 1 VIAL SQ SCH ×3 (06:42→18:11)
[2021-02-04] MEDS: CYANOCOBALAMIN (VITAMIN B-12) 1000 MCG/1 ML VIAL IM SCH (10:44)
[2021-02-04] MEDS: MULTIVIT-MINERALS ORAL LIQUID PO SCH (10:44)
[2021-02-04] MEDS: FINASTERIDE 5 MG TABLET (FP) PO SCH (10:44)
[2021-02-04] MEDS: FOLIC ACID 1 MG TABLET (FP) PO SCH (10:44)
[2021-02-04] MEDS: ESCITALOPRAM OXALATE 10 MG TABLET PO SCH (10:44)
[2021-02-04] MEDS: risperiDONE 1 MG TABLET PO SCH ×2 (10:44→22:23)
[2021-02-04] MEDS: AMINO ACIDS/PROTEIN HYDROLYS 30 ML LIQUID.PKT PO SCH ×2 (10:44→18:03)
[2021-02-04] MEDS: metoPROLOL SUCCINATE 25 MG TAB.SR.24H (FP) PO SCH (10:44)
[2021-02-04] MEDS: COLLAGENASE CLOSTRIDIUM HIST. 30 GRAMS TUBE TP SCH (10:45)
[2021-02-04] MEDS ORDERED: INSULIN (NOVOLOG) ASPART 100 UNITS/ML 10ML VIAL ONE ×2 (18:17→20:50)
[2021-02-04] MEDS: MIRTAZAPINE 15 MG TABLET (FP) PO SCH (21:18)
[2021-02-05] MEDS: INSULIN SLIDING SCALE (NOVOLOG) 1 VIAL SQ SCH ×2 (06:14→12:06)
[2021-02-05] MEDS: MAG HYDROX/ALH/SMC/DPHA/LIDO 240 ML MOUTHWASH MM SCH ×2 (06:15→14:39)
[2021-02-05] MEDS ORDERED: PT OWN MED DRAWER 7, Y5N ONE ×4 (08:51→14:36)
[2021-02-05] MEDS: FOLIC ACID 1 MG TABLET (FP) PO SCH (09:32)
[2021-02-05] MEDS: FINASTERIDE 5 MG TABLET (FP) PO SCH (09:32)
[2021-02-05] MEDS: metoPROLOL SUCCINATE 25 MG TAB.SR.24H (FP) PO SCH (09:32)
[2021-02-05] MEDS: ESCITALOPRAM OXALATE 10 MG TABLET PO SCH (09:32)
[2021-02-05] MEDS: CYANOCOBALAMIN (VITAMIN B-12) 1000 MCG/1 ML VIAL IM SCH (09:33)
[2021-02-05] MEDS: AMINO ACIDS/PROTEIN HYDROLYS 30 ML LIQUID.PKT PO SCH (09:33)
[2021-02-05] MEDS: risperiDONE 1 MG TABLET PO SCH (09:33)
[2021-02-05] MEDS: COLLAGENASE CLOSTRIDIUM HIST. 30 GRAMS TUBE TP SCH (09:34)
[2021-02-05 09:42] VITALS: TEMP 98.3
[2021-02-05] MEDS: MULTIVIT-MINERALS ORAL LIQUID PO SCH (12:01)
[2021-02-05 16:23] VITALS: BP 94/55; PULSE 110
== END 2021-02-05 16:30 | DRG 871 ==
LOC: JER 22:18 → JERBED 01-16 00:37 → JICU 01-16 03:03 → J7W 01-27 11:46
PROVIDERS: ADMIT Internal Medicine Pulmonary Disease; ATTEND Internal Medicine
PROC: 05HN33Z Insertion of Infusion Device into Left Internal Jugular Vein, Percutaneous Approach (ICD-10-PCS; principal; 2021-01-16)
PROC: B544ZZA Ultrasonography of Left Jugular Veins, Guidance (ICD-10-PCS; 2021-01-16)
DX: A41.59 Other Gram-negative sepsis (principal); L89.153 Pressure ulcer of sacral region, stage 3; J96.21 Acute and chronic respiratory failure with hypoxia; R65.21 Severe sepsis with septic shock; I21.4 Non-ST elevation (NSTEMI) myocardial infarction; R53.2 Functional quadriplegia; N17.0 Acute kidney failure with tubular necrosis; K72.00 Acute and subacute hepatic failure without coma; N39.0 Urinary tract infection, site not specified; E87.2 Acidosis; I24.8 Other forms of acute ischemic heart disease; D61.818 Other pancytopenia; I48.92 Unspecified atrial flutter; I25.10 Atherosclerotic heart disease of native coronary artery without angina pectoris; I48.91 Unspecified atrial fibrillation; I10 Essential (primary) hypertension; E78.00 Pure hypercholesterolemia, unspecified; F20.9 Schizophrenia, unspecified; D64.9 Anemia, unspecified; R31.0 Gross hematuria; I95.9 Hypotension, unspecified; N32.89 Other specified disorders of bladder; E87.5 Hyperkalemia; N18.9 Chronic kidney disease, unspecified; Z53.1 Procedure and treatment not carried out because of patient's decision for reasons of belief and group pressure; D69.6 Thrombocytopenia, unspecified; E83.51 Hypocalcemia; E11.65 Type 2 diabetes mellitus with hyperglycemia
CPT/HCPCS: 36415; 36600; 71045-TC-FY; 74178-TC; 76775-TC; 80048; 80053; 81003; 82010; 82436; 82550; 82553; 82570; 82607; 82728; 82746; 82784; 82803; 82962; 83540; 83550; 83605; 83615; 83735; 83880; 83883; 84100; 84133; 84156; 84300; 84443; 84484; 85025; 85027; 85045; 85610; 85730; 86850; 86900; 86901; 87040; 87086; 87186; 88108; 93005; 93010; 93306-TC; 99285-25; C9803; G0480; J0131; J0282; J1756; J2794; Q5106; Q9967; U0003; U0005

== ENCOUNTER 2021-06-02 15:22 | Inpatient (IN) | payer OTHER ==
[2021-06-02] MEDS ORDERED: SODIUM CHLORIDE 1,000 ML IV STA (18:17)
[2021-06-02 18:42] LABS: VENOUS BASE EXCESS 3.5 mmol/L (-2-2); VENOUS O2 SATURATION 76.4 % (70-80); VENOUS PCO2 57.9 mmHg (38-52); VENOUS PH 7.335 (7.310-7.410)
[2021-06-02 18:45] LABS: BASO % 0.5 % (0-2.0); EOS % 3.8 % (0-4.5); HEMATOCRIT 22.4 % (35.4-49); HEMOGLOBIN 7.1 GM/dL (11.7-16.9); LYMPH % 8.4 % (8-40); MCH 31.8 pg (25.7-33.7); MCHC 31.6 g/dl (32.0-35.9); MEAN CELL VOLUME 100.6 fl (80-96); MONO % 6.6 % (3.8-10.2); NEUT % 80.7 % (42.8-82.8); PLATELET COUNT 145 10^3/uL (134-434); RBC 2.22 M/mm3 (4.00-5.60); RDW 19.7 % (11.9-15.9); WHITE BLOOD COUNT 6.7 K/mm3 (4.0-10.0)
[2021-06-02 19:04] LABS: CHLORIDE 105 mmol/L (98-107); SODIUM 141 mmol/L (136-145)
[2021-06-02 19:06] LABS: MAGNESIUM 1.9 mg/dL (1.8-2.4)
[2021-06-02 19:08] LABS: ALBUMIN 1.7 g/dl (3.4-5.0); ANION GAP 4 MMOL/L (8-16); BLOOD UREA NITROGEN 32.7 mg/dL (7-18); CALCIUM 7.7 mg/dL (8.5-10.1); CO2 32 mmol/L (21-32); GLUCOSE,RANDOM 181 mg/dL (74-106)
[2021-06-02 19:11] LABS: CREATININE 0.8 mg/dL (0.55-1.3); SGOT/AST 7 U/L (15-37); SGPT/ALT 10 U/L (13-61)
[2021-06-02 19:13] LABS: ALK PHOS 70 U/L (45-117); BILIRUBIN,TOTAL 0.4 mg/dL (0.2-1); TOT PROT 4.9 g/dl (6.4-8.2)
[2021-06-02 19:14] LABS: N-TERMINAL BNP 30306.3 pg/ml (5-125)
[2021-06-02] MEDS ORDERED: PIPERACILLIN/TAZOB 4.5 GM 4.5 GM in DEXTROSE 5%-WATER 100 ML IVPB ONE (19:21)
[2021-06-02] MEDS ORDERED: MAGNESIUM SULF 50% (8.12 MEQ/2 ML-1 GM VIAL) IVPB ONE (19:28)
[2021-06-02] MEDS ORDERED: MAGNESIUM SULFATE IN WATER 2 GM/50 ML IVPB IVPB ONE (19:44)
[2021-06-02] MEDS ORDERED: PIPERACILLIN/TAZOB 4.5 GM 4.5 GM/100 ML BAG IVPB ONE (19:55)
[2021-06-02] MEDS ORDERED: FUROSEMIDE 40 MG TABLET (FP) PO ONE (21:23)
[2021-06-02] MEDS ORDERED: FUROSEMIDE 40 MG TABLET (FP) ONE (22:44)
[2021-06-03] MEDS ORDERED: LIDOCAINE HCL 2% JELLY 10 ML CARTRIDGE UR ONE (01:50)
[2021-06-03] MEDS ORDERED: LIDOCAINE HCL 2% JELLY 10 ML CARTRIDGE ONE (01:52)
[2021-06-03] MEDS ORDERED: PIPERACILLIN/TAZOB 4.5 GM 4.5 GM in DEXTROSE 5%-WATER 100 ML IVPB SCH (03:00)
[2021-06-03] MEDS ORDERED: traMADol HCL 50 MG TABLET PO PRN (03:35)
[2021-06-03] MEDS ORDERED: PIPERACILLIN/TAZOB 4.5 GM 4.5 GM/100 ML BAG IVPB ONE (03:39)
[2021-06-03] MEDS: PIPERACILLIN/TAZOB 4.5 GM 4.5 GM in DEXTROSE 5%-WATER 100 ML IVPB SCH ×2 (03:42→09:47)
[2021-06-03 06:17] LABS: BASO % 0.5 % (0-2.0); EOS % 1.5 % (0-4.5); HEMATOCRIT 26.3 % (35.4-49); HEMOGLOBIN 8.5 GM/dL (11.7-16.9); LYMPH % 3.8 % (8-40); MCH 32.3 pg (25.7-33.7); MCHC 32.4 g/dl (32.0-35.9); MEAN CELL VOLUME 99.7 fl (80-96); MEAN PLT VOLUME 8.8 fl (7.5-11.1); MONO % 4.2 % (3.8-10.2); PLATELET COUNT 167 10^3/uL (134-434); RBC 2.64 M/mm3 (4.00-5.60); RDW 18.9 % (11.9-15.9); WHITE BLOOD COUNT 9.3 K/mm3 (4.0-10.0)
[2021-06-03 06:33] LABS: CHLORIDE 105 mmol/L (98-107); SODIUM 143 mmol/L (136-145)
[2021-06-03 06:34] LABS: CALCIUM 7.8 mg/dL (8.5-10.1)
[2021-06-03 06:35] LABS: ANION GAP 6 MMOL/L (8-16); BLOOD UREA NITROGEN 27.5 mg/dL (7-18); CO2 33 mmol/L (21-32); GLUCOSE,RANDOM 117 mg/dL (74-106)
[2021-06-03 06:38] LABS: CREATININE 0.7 mg/dL (0.55-1.3)
[2021-06-03] MEDS ORDERED: HEPARIN NA (PORCINE) 5,000 UNITS/ML 1ML VIAL ONE ×2 (06:47→14:30)
[2021-06-03] MEDS: HEPARIN NA (PORCINE) 5,000 UNITS/ML 1ML VIAL SQ SCH ×3 (06:59→22:26)
[2021-06-03] MEDS: INSULIN SLIDING SCALE (NOVOLOG) 1 VIAL SQ SCH ×4 (08:44→22:39)
[2021-06-03] MEDS ORDERED: FUROSEMIDE 40 MG TABLET (FP) ONE (09:39)
[2021-06-03] MEDS ORDERED: ASCORBIC ACID 500 MG TABLET (FP) ONE (09:39)
[2021-06-03] MEDS ORDERED: risperiDONE 0.5 MG TABLET ONE (09:40)
[2021-06-03] MEDS ORDERED: LISINOPRIL 5 MG TABLET ONE (09:40)
[2021-06-03] MEDS ORDERED: FOLIC ACID 1 MG TABLET (FP) ONE (09:40)
[2021-06-03] MEDS ORDERED: TAMSULOSIN HCL 0.4 MG CAP ONE (09:40)
[2021-06-03] MEDS ORDERED: MIRTAZAPINE 15 MG TABLET (FP) ONE (09:41)
[2021-06-03] MEDS ORDERED: PIPERACILLIN/TAZOB 3.375 GM 3.375 GM/50 ML BAG IVPB ONE ×2 (09:41→14:30)
[2021-06-03] MEDS ORDERED: FERROUS SO4 325 MG TABLET (FP) ONE (09:41)
[2021-06-03] MEDS: TAMSULOSIN HCL 0.4 MG CAP PO SCH (09:47)
[2021-06-03] MEDS: URSODIOL 300 MG CAPSULE PO SCH ×2 (09:53→23:22)
[2021-06-03] MEDS: FERROUS SO4 325 MG TABLET (FP) PO SCH (09:54)
[2021-06-03] MEDS: FOLIC ACID 1 MG TABLET (FP) PO SCH (09:54)
[2021-06-03] MEDS: MULTIVIT-MINERALS ORAL LIQUID PO SCH (09:54)
[2021-06-03] MEDS ORDERED: PANTOPRAZOLE 20 MG TABLET PO ONE (09:58)
[2021-06-03] MEDS ORDERED: MIDODRINE HCL 5 MG TABLET PO SCH (10:00)
[2021-06-03] MEDS ORDERED: FUROSEMIDE 40 MG TABLET (FP) PO SCH (10:00)
[2021-06-03] MEDS ORDERED: LISINOPRIL 5 MG TABLET PO SCH (10:00)
[2021-06-03] MEDS: PANTOPRAZOLE 20 MG TABLET PO SCH (10:55)
[2021-06-03] MEDS: CYANOCOBALAMIN (VITAMIN B-12) 1000 MCG/1 ML VIAL IM SCH (10:55)
[2021-06-03] MEDS: MIRTAZAPINE 15 MG TABLET (FP) PO SCH (10:55)
[2021-06-03] MEDS: risperiDONE 1 MG TABLET PO SCH ×2 (10:55→23:23)
[2021-06-03] MEDS: FINASTERIDE 5 MG TABLET (FP) PO SCH (10:55)
[2021-06-03] MEDS: MIDODRINE HCL 5 MG TABLET PO SCH ×2 (10:55→19:46)
[2021-06-03] MEDS: ASCORBIC ACID 500 MG TABLET (FP) PO SCH (10:56)
[2021-06-03] MEDS: AMINO ACIDS/PROTEIN HYDROLYS 30 ML LIQUID.PKT PO SCH (15:31)
[2021-06-03] MEDS: ATORVASTATIN CA 10 MG TABLET (FP) PO SCH (22:26)
[2021-06-04] MEDS: HEPARIN NA (PORCINE) 5,000 UNITS/ML 1ML VIAL SQ SCH ×3 (05:50→23:09)
[2021-06-04] MEDS: INSULIN SLIDING SCALE (NOVOLOG) 1 VIAL SQ SCH ×4 (06:00→23:10)
[2021-06-04] MEDS: AMINO ACIDS/PROTEIN HYDROLYS 30 ML LIQUID.PKT PO SCH (09:00)
[2021-06-04] MEDS: TAMSULOSIN HCL 0.4 MG CAP PO SCH (09:30)
[2021-06-04] MEDS: risperiDONE 1 MG TABLET PO SCH ×2 (10:33→23:10)
[2021-06-04] MEDS: URSODIOL 300 MG CAPSULE PO SCH ×2 (10:33→23:09)
[2021-06-04] MEDS: MULTIVIT-MINERALS ORAL LIQUID PO SCH (10:33)
[2021-06-04] MEDS ORDERED: PT OWN MED DRAWER 7, Y5N ONE ×2 (10:38→23:00)
[2021-06-04] MEDS: ASCORBIC ACID 500 MG TABLET (FP) PO SCH (10:39)
[2021-06-04] MEDS: FOLIC ACID 1 MG TABLET (FP) PO SCH (10:39)
[2021-06-04] MEDS: PANTOPRAZOLE 20 MG TABLET PO SCH (10:39)
[2021-06-04] MEDS: FUROSEMIDE 40 MG/4 ML INJECTABLE VIAL IVPUSH SCH (10:39)
[2021-06-04] MEDS: MIDODRINE HCL 5 MG TABLET PO SCH ×2 (10:40→17:12)
[2021-06-04] MEDS: FINASTERIDE 5 MG TABLET (FP) PO SCH (10:40)
[2021-06-04] MEDS: LISINOPRIL 5 MG TABLET PO SCH (10:41)
[2021-06-04] MEDS: FERROUS SO4 325 MG TABLET (FP) PO SCH (10:42)
[2021-06-04] MEDS: MIRTAZAPINE 15 MG TABLET (FP) PO SCH (10:42)
[2021-06-04 11:58] LABS: EPI CELLS >36 /uL (0-25.1); HYALINE CASTS 21 /uL (0-3.1); PH,URINE 5.5 (5.0-8.0); URINE APPEARANCE TURBID; URINE BACTERIA 81 /uL (0-1359); URINE BILIRUBIN NEGATIVE (NEGATIVE); URINE COLOR YELLOW; URINE GLUCOSE (UA) NEGATIVE (NEGATIVE); URINE KETONE TRACE (NEGATIVE); URINE LEUK ESTERASE 3+ (NEGATIVE); URINE NITRITE NEGATIVE (NEGATIVE); URINE PROTEIN 2+ (NEGATIVE); URINE WBC 9622 /uL (0-25.8)
[2021-06-04 13:23] LABS: YEAST PRESENT (NEGATIVE)
[2021-06-04 13:24] LABS: URINE CRYSTALS NEGATIVE /hpf; URINE RBC 133 /uL (0-23.9)
[2021-06-04] MEDS: ATORVASTATIN CA 10 MG TABLET (FP) PO SCH (22:09)
[2021-06-05] MEDS: HEPARIN NA (PORCINE) 5,000 UNITS/ML 1ML VIAL SQ SCH ×3 (06:27→21:19)
[2021-06-05] MEDS: INSULIN SLIDING SCALE (NOVOLOG) 1 VIAL SQ SCH ×4 (06:27→21:38)
[2021-06-05] MEDS: AMINO ACIDS/PROTEIN HYDROLYS 30 ML LIQUID.PKT PO SCH (09:00)
[2021-06-05] MEDS: TAMSULOSIN HCL 0.4 MG CAP PO SCH (09:30)
[2021-06-05] MEDS: FINASTERIDE 5 MG TABLET (FP) PO SCH (09:30)
[2021-06-05] MEDS ORDERED: PT OWN MED DRAWER 7, Y5N ONE ×2 (09:41→21:08)
[2021-06-05] MEDS: MULTIVIT-MINERALS ORAL LIQUID PO SCH (10:03)
[2021-06-05] MEDS: FERROUS SO4 325 MG TABLET (FP) PO SCH (10:04)
[2021-06-05] MEDS: MIDODRINE HCL 5 MG TABLET PO SCH ×2 (10:04→17:49)
[2021-06-05] MEDS: FUROSEMIDE 40 MG/4 ML INJECTABLE VIAL IVPUSH SCH (10:04)
[2021-06-05] MEDS: PANTOPRAZOLE 20 MG TABLET PO SCH (10:04)
[2021-06-05] MEDS: FOLIC ACID 1 MG TABLET (FP) PO SCH (10:04)
[2021-06-05] MEDS: URSODIOL 300 MG CAPSULE PO SCH ×2 (10:04→21:19)
[2021-06-05] MEDS: risperiDONE 1 MG TABLET PO SCH ×2 (10:04→21:19)
[2021-06-05] MEDS: MIRTAZAPINE 15 MG TABLET (FP) PO SCH (10:04)
[2021-06-05] MEDS: ASCORBIC ACID 500 MG TABLET (FP) PO SCH (10:05)
[2021-06-05] MEDS: LISINOPRIL 5 MG TABLET PO SCH (10:06)
[2021-06-05] MEDS: POTASSIUM CHLORIDE ORAL LIQUID 20 MEQ/15 ML PO SCH (10:14)
[2021-06-05] MEDS: ATORVASTATIN CA 10 MG TABLET (FP) PO SCH (21:19)
[2021-06-06] MEDS: HEPARIN NA (PORCINE) 5,000 UNITS/ML 1ML VIAL SQ SCH ×3 (05:53→22:05)
[2021-06-06] MEDS: INSULIN SLIDING SCALE (NOVOLOG) 1 VIAL SQ SCH ×4 (06:58→22:04)
[2021-06-06] MEDS ORDERED: PT OWN MED DRAWER 7, Y5N ONE ×3 (08:26→22:43)
[2021-06-06] MEDS: AMINO ACIDS/PROTEIN HYDROLYS 30 ML LIQUID.PKT PO SCH (08:58)
[2021-06-06] MEDS: MIDODRINE HCL 5 MG TABLET PO SCH ×2 (09:02→18:38)
[2021-06-06] MEDS: FERROUS SO4 325 MG TABLET (FP) PO SCH (09:02)
[2021-06-06] MEDS: FOLIC ACID 1 MG TABLET (FP) PO SCH (09:02)
[2021-06-06] MEDS: FINASTERIDE 5 MG TABLET (FP) PO SCH (09:02)
[2021-06-06] MEDS: TAMSULOSIN HCL 0.4 MG CAP PO SCH (09:02)
[2021-06-06] MEDS: risperiDONE 1 MG TABLET PO SCH ×2 (09:02→22:04)
[2021-06-06] MEDS: PANTOPRAZOLE 20 MG TABLET PO SCH (09:03)
[2021-06-06] MEDS: MIRTAZAPINE 15 MG TABLET (FP) PO SCH (09:03)
[2021-06-06] MEDS: ASCORBIC ACID 500 MG TABLET (FP) PO SCH (09:03)
[2021-06-06] MEDS: LISINOPRIL 5 MG TABLET PO SCH (09:03)
[2021-06-06] MEDS: FUROSEMIDE 40 MG/4 ML INJECTABLE VIAL IVPUSH SCH (09:03)
[2021-06-06] MEDS: POTASSIUM CHLORIDE ORAL LIQUID 20 MEQ/15 ML PO SCH (09:03)
[2021-06-06] MEDS: URSODIOL 300 MG CAPSULE PO SCH ×2 (09:04→22:04)
[2021-06-06] MEDS: MULTIVIT-MINERALS ORAL LIQUID PO SCH (09:30)
[2021-06-06] MEDS: ATORVASTATIN CA 10 MG TABLET (FP) PO SCH (22:04)
[2021-06-07] MEDS: INSULIN SLIDING SCALE (NOVOLOG) 1 VIAL SQ SCH ×4 (06:37→21:34)
[2021-06-07] MEDS: HEPARIN NA (PORCINE) 5,000 UNITS/ML 1ML VIAL SQ SCH ×3 (06:38→21:24)
[2021-06-07 06:43] LABS: HEMATOCRIT 24.5 % (35.4-49); HEMOGLOBIN 7.9 GM/dL (11.7-16.9); MCH 32.4 pg (25.7-33.7); MEAN PLT VOLUME 9.2 fl (7.5-11.1); PLATELET COUNT 130 10^3/uL (134-434); RBC 2.43 M/mm3 (4.00-5.60); RDW 20.5 % (11.9-15.9); WHITE BLOOD COUNT 7.5 K/mm3 (4.0-10.0)
[2021-06-07 06:54] LABS: CALCIUM 7.5 mg/dL (8.5-10.1)
[2021-06-07 06:55] LABS: BLOOD UREA NITROGEN 26.7 mg/dL (7-18)
[2021-06-07 06:58] LABS: CREATININE 1.1 mg/dL (0.55-1.3)
[2021-06-07] MEDS: TAMSULOSIN HCL 0.4 MG CAP PO SCH (08:55)
[2021-06-07] MEDS ORDERED: PT OWN MED DRAWER 7, Y5N ONE (08:55)
[2021-06-07] MEDS: AMINO ACIDS/PROTEIN HYDROLYS 30 ML LIQUID.PKT PO SCH (08:55)
[2021-06-07] MEDS: ASCORBIC ACID 500 MG TABLET (FP) PO SCH (09:43)
[2021-06-07] MEDS: FOLIC ACID 1 MG TABLET (FP) PO SCH (09:43)
[2021-06-07] MEDS: FUROSEMIDE 40 MG/4 ML INJECTABLE VIAL IVPUSH SCH (09:43)
[2021-06-07] MEDS: PANTOPRAZOLE 20 MG TABLET PO SCH (09:43)
[2021-06-07] MEDS: risperiDONE 1 MG TABLET PO SCH ×2 (09:43→21:25)
[2021-06-07] MEDS: MIDODRINE HCL 5 MG TABLET PO SCH ×2 (09:43→17:32)
[2021-06-07] MEDS: URSODIOL 300 MG CAPSULE PO SCH ×2 (09:43→21:24)
[2021-06-07] MEDS: FINASTERIDE 5 MG TABLET (FP) PO SCH (09:43)
[2021-06-07] MEDS: POTASSIUM CHLORIDE ORAL LIQUID 20 MEQ/15 ML PO SCH (09:44)
[2021-06-07] MEDS: MULTIVIT-MINERALS ORAL LIQUID PO SCH (09:44)
[2021-06-07] MEDS: MIRTAZAPINE 15 MG TABLET (FP) PO SCH (09:45)
[2021-06-07] MEDS: FERROUS SO4 325 MG TABLET (FP) PO SCH (09:55)
[2021-06-07] MEDS: LISINOPRIL 5 MG TABLET PO SCH (09:56)
[2021-06-07] MEDS ORDERED: IRON SUCROSE INJECTION 200 MG in SODIUM CHLORIDE 90 ML IVPB ONE (10:00)
[2021-06-07] MEDS ORDERED: EPOETIN ALFA-EPBX 20,000 UNIT/ML VIAL SQ ONE (10:00)
[2021-06-07] MEDS ORDERED: ACETAMINOPHEN WITH CODEINE 300MG/30MG TABLET PO PRN (10:12)
[2021-06-07] MEDS: ATORVASTATIN CA 10 MG TABLET (FP) PO SCH (21:25)
[2021-06-08] MEDS: HEPARIN NA (PORCINE) 5,000 UNITS/ML 1ML VIAL SQ SCH ×3 (05:37→23:09)
[2021-06-08] MEDS: INSULIN SLIDING SCALE (NOVOLOG) 1 VIAL SQ SCH ×4 (06:41→23:09)
[2021-06-08] MEDS ORDERED: PT OWN MED DRAWER 7, Y5N ONE ×2 (07:55→23:09)
[2021-06-08] MEDS: AMINO ACIDS/PROTEIN HYDROLYS 30 ML LIQUID.PKT PO SCH (08:35)
[2021-06-08] MEDS: TAMSULOSIN HCL 0.4 MG CAP PO SCH (08:35)
[2021-06-08] MEDS: PANTOPRAZOLE 20 MG TABLET PO SCH (10:24)
[2021-06-08] MEDS: MIDODRINE HCL 5 MG TABLET PO SCH ×2 (10:24→17:43)
[2021-06-08] MEDS: FOLIC ACID 1 MG TABLET (FP) PO SCH (10:24)
[2021-06-08] MEDS: ASCORBIC ACID 500 MG TABLET (FP) PO SCH (10:24)
[2021-06-08] MEDS: POTASSIUM CHLORIDE ORAL LIQUID 20 MEQ/15 ML PO SCH (10:24)
[2021-06-08] MEDS: risperiDONE 1 MG TABLET PO SCH ×2 (10:24→23:09)
[2021-06-08] MEDS: MIRTAZAPINE 15 MG TABLET (FP) PO SCH (10:24)
[2021-06-08] MEDS: FUROSEMIDE 40 MG/4 ML INJECTABLE VIAL IVPUSH SCH (10:25)
[2021-06-08] MEDS: FINASTERIDE 5 MG TABLET (FP) PO SCH (10:25)
[2021-06-08] MEDS: FERROUS SO4 325 MG TABLET (FP) PO SCH (10:25)
[2021-06-08] MEDS: LISINOPRIL 5 MG TABLET PO SCH (10:25)
[2021-06-08] MEDS: URSODIOL 300 MG CAPSULE PO SCH ×2 (10:26→23:09)
[2021-06-08] MEDS: MULTIVIT-MINERALS ORAL LIQUID PO SCH (10:26)
[2021-06-08] MEDS: ATORVASTATIN CA 10 MG TABLET (FP) PO SCH (23:09)
[2021-06-09] MEDS: INSULIN SLIDING SCALE (NOVOLOG) 1 VIAL SQ SCH ×3 (06:56→17:40)
[2021-06-09] MEDS: HEPARIN NA (PORCINE) 5,000 UNITS/ML 1ML VIAL SQ SCH ×2 (07:36→13:21)
[2021-06-09] MEDS ORDERED: PT OWN MED DRAWER 7, Y5N ONE (07:51)
[2021-06-09] MEDS: AMINO ACIDS/PROTEIN HYDROLYS 30 ML LIQUID.PKT PO SCH (08:06)
[2021-06-09] MEDS: TAMSULOSIN HCL 0.4 MG CAP PO SCH (08:07)
[2021-06-09] MEDS: URSODIOL 300 MG CAPSULE PO SCH (10:02)
[2021-06-09] MEDS: FUROSEMIDE 40 MG/4 ML INJECTABLE VIAL IVPUSH SCH (10:02)
[2021-06-09] MEDS: FINASTERIDE 5 MG TABLET (FP) PO SCH (10:02)
[2021-06-09] MEDS: MIDODRINE HCL 5 MG TABLET PO SCH ×2 (10:03→17:40)
[2021-06-09] MEDS: FOLIC ACID 1 MG TABLET (FP) PO SCH (10:03)
[2021-06-09] MEDS: MIRTAZAPINE 15 MG TABLET (FP) PO SCH (10:03)
[2021-06-09] MEDS: POTASSIUM CHLORIDE ORAL LIQUID 20 MEQ/15 ML PO SCH (10:03)
[2021-06-09] MEDS: FERROUS SO4 325 MG TABLET (FP) PO SCH (10:03)
[2021-06-09] MEDS: ASCORBIC ACID 500 MG TABLET (FP) PO SCH (10:03)
[2021-06-09] MEDS: risperiDONE 1 MG TABLET PO SCH (10:03)
[2021-06-09] MEDS: MULTIVIT-MINERALS ORAL LIQUID PO SCH (10:04)
[2021-06-09] MEDS: LISINOPRIL 5 MG TABLET PO SCH (10:04)
[2021-06-09] MEDS: PANTOPRAZOLE 20 MG TABLET PO SCH (10:04)
[2021-06-09] MEDS: BANATROL PLUS POWDER PACKET PO SCH (13:21)
[2021-06-10] MEDS: ATORVASTATIN CA 10 MG TABLET (FP) PO SCH ×2 (01:52→23:47)
[2021-06-10] MEDS: HEPARIN NA (PORCINE) 5,000 UNITS/ML 1ML VIAL SQ SCH (01:52)
[2021-06-10] MEDS: URSODIOL 300 MG CAPSULE PO SCH ×3 (01:55→23:46)
[2021-06-10] MEDS: BANATROL PLUS POWDER PACKET PO SCH ×4 (01:55→23:46)
[2021-06-10] MEDS: INSULIN SLIDING SCALE (NOVOLOG) 1 VIAL SQ SCH ×5 (01:55→23:47)
[2021-06-10] MEDS: risperiDONE 1 MG TABLET PO SCH ×3 (01:55→23:46)
[2021-06-10 06:43] LABS: HEMATOCRIT 22.8 % (35.4-49); HEMOGLOBIN 7.5 GM/dL (11.7-16.9); MCH 33.5 pg (25.7-33.7); MCHC 32.8 g/dl (32.0-35.9); MEAN CELL VOLUME 102.1 fl (80-96); MEAN PLT VOLUME 9.2 fl (7.5-11.1); PLATELET COUNT 111 10^3/uL (134-434); RBC 2.23 M/mm3 (4.00-5.60); RDW 22.4 % (11.9-15.9); WHITE BLOOD COUNT 9.9 K/mm3 (4.0-10.0)
[2021-06-10 06:48] LABS: CALCIUM 7.5 mg/dL (8.5-10.1)
[2021-06-10 06:49] LABS: BLOOD UREA NITROGEN 26.6 mg/dL (7-18)
[2021-06-10 06:52] LABS: CREATININE 0.9 mg/dL (0.55-1.3)
[2021-06-10] MEDS: AMINO ACIDS/PROTEIN HYDROLYS 30 ML LIQUID.PKT PO SCH (09:11)
[2021-06-10] MEDS: POTASSIUM CHLORIDE ORAL LIQUID 20 MEQ/15 ML PO SCH (09:12)
[2021-06-10] MEDS: MULTIVIT-MINERALS ORAL LIQUID PO SCH (09:12)
[2021-06-10] MEDS: FUROSEMIDE 40 MG/4 ML INJECTABLE VIAL IVPUSH SCH (09:12)
[2021-06-10] MEDS: FERROUS SO4 325 MG TABLET (FP) PO SCH (09:13)
[2021-06-10] MEDS: FINASTERIDE 5 MG TABLET (FP) PO SCH (09:13)
[2021-06-10] MEDS: ASCORBIC ACID 500 MG TABLET (FP) PO SCH (09:13)
[2021-06-10] MEDS: FOLIC ACID 1 MG TABLET (FP) PO SCH (09:13)
[2021-06-10] MEDS: MIRTAZAPINE 15 MG TABLET (FP) PO SCH (09:13)
[2021-06-10] MEDS: PANTOPRAZOLE 20 MG TABLET PO SCH (09:13)
[2021-06-10] MEDS: MIDODRINE HCL 5 MG TABLET PO SCH ×4 (09:13→17:10)
[2021-06-10] MEDS: TAMSULOSIN HCL 0.4 MG CAP PO SCH (09:14)
[2021-06-10] MEDS: LISINOPRIL 5 MG TABLET PO SCH (09:14)
[2021-06-10] MEDS ORDERED: PT OWN MED DRAWER 7, Y5N ONE ×2 (12:05→22:11)
[2021-06-10] MEDS: CYANOCOBALAMIN (VITAMIN B-12) 1000 MCG/1 ML VIAL IM SCH (14:02)
[2021-06-10] MEDS: COLLAGENASE CLOSTRIDIUM HIST. 30 GRAMS TUBE TP SCH (23:46)
[2021-06-11] MEDS: INSULIN SLIDING SCALE (NOVOLOG) 1 VIAL SQ SCH ×3 (07:47→17:04)
[2021-06-11] MEDS: BANATROL PLUS POWDER PACKET PO SCH ×3 (07:47→21:45)
[2021-06-11] MEDS ORDERED: PT OWN MED DRAWER 7, Y5N ONE (07:53)
[2021-06-11] MEDS: AMINO ACIDS/PROTEIN HYDROLYS 30 ML LIQUID.PKT PO SCH (08:08)
[2021-06-11] MEDS: TAMSULOSIN HCL 0.4 MG CAP PO SCH (08:08)
[2021-06-11] MEDS: ASCORBIC ACID 500 MG TABLET (FP) PO SCH (09:35)
[2021-06-11] MEDS: risperiDONE 1 MG TABLET PO SCH ×2 (09:35→21:45)
[2021-06-11] MEDS: URSODIOL 300 MG CAPSULE PO SCH ×2 (09:36→21:44)
[2021-06-11] MEDS: FOLIC ACID 1 MG TABLET (FP) PO SCH (09:36)
[2021-06-11] MEDS: FERROUS SO4 325 MG TABLET (FP) PO SCH (09:36)
[2021-06-11] MEDS: MIRTAZAPINE 15 MG TABLET (FP) PO SCH (09:36)
[2021-06-11] MEDS: MULTIVIT-MINERALS ORAL LIQUID PO SCH (09:36)
[2021-06-11] MEDS: MIDODRINE HCL 5 MG TABLET PO SCH ×3 (09:37→17:28)
[2021-06-11] MEDS: POTASSIUM CHLORIDE ORAL LIQUID 20 MEQ/15 ML PO SCH (09:37)
[2021-06-11] MEDS: FUROSEMIDE 40 MG/4 ML INJECTABLE VIAL IVPUSH SCH (09:37)
[2021-06-11] MEDS: COLLAGENASE CLOSTRIDIUM HIST. 30 GRAMS TUBE TP SCH (09:38)
[2021-06-11] MEDS: PANTOPRAZOLE 20 MG TABLET PO SCH (09:38)
[2021-06-11] MEDS: FINASTERIDE 5 MG TABLET (FP) PO SCH (09:38)
[2021-06-11] MEDS ORDERED: NYSTATIN 100,000 UNIT/GM TOPICAL CREAM 15 GM TUBE TP SCH (11:00)
[2021-06-11] MEDS ORDERED: FUROSEMIDE 40 MG TABLET (FP) PO SCH (11:00)
[2021-06-11] MEDS: ATORVASTATIN CA 10 MG TABLET (FP) PO SCH (21:45)
[2021-06-12] MEDS: INSULIN SLIDING SCALE (NOVOLOG) 1 VIAL SQ SCH ×5 (03:05→21:48)
[2021-06-12] MEDS: BANATROL PLUS POWDER PACKET PO SCH ×3 (05:48→21:07)
[2021-06-12] MEDS ORDERED: PT OWN MED DRAWER 7, Y5N ONE (08:43)
[2021-06-12] MEDS: POTASSIUM CHLORIDE ORAL LIQUID 20 MEQ/15 ML PO SCH (09:13)
[2021-06-12] MEDS: AMINO ACIDS/PROTEIN HYDROLYS 30 ML LIQUID.PKT PO SCH (09:14)
[2021-06-12] MEDS: ASCORBIC ACID 500 MG TABLET (FP) PO SCH (09:14)
[2021-06-12] MEDS: FOLIC ACID 1 MG TABLET (FP) PO SCH (09:14)
[2021-06-12] MEDS: MIDODRINE HCL 5 MG TABLET PO SCH ×3 (09:14→17:11)
[2021-06-12] MEDS: FERROUS SO4 325 MG TABLET (FP) PO SCH (09:14)
[2021-06-12] MEDS: FINASTERIDE 5 MG TABLET (FP) PO SCH (09:14)
[2021-06-12] MEDS: TAMSULOSIN HCL 0.4 MG CAP PO SCH (09:14)
[2021-06-12] MEDS: MULTIVITAMINS THER W-MINERALS COMBO TABLET (FP) PO SCH (09:14)
[2021-06-12] MEDS: FUROSEMIDE 40 MG/4 ML INJECTABLE VIAL IVPUSH SCH (09:14)
[2021-06-12] MEDS: MIRTAZAPINE 15 MG TABLET (FP) PO SCH (09:14)
[2021-06-12] MEDS: risperiDONE 1 MG TABLET PO SCH ×2 (09:15→21:06)
[2021-06-12] MEDS: URSODIOL 300 MG CAPSULE PO SCH ×2 (09:16→21:06)
[2021-06-12] MEDS: CYANOCOBALAMIN (VITAMIN B-12) 1000 MCG/1 ML VIAL IM SCH (09:16)
[2021-06-12] MEDS: PANTOPRAZOLE 20 MG TABLET PO SCH (09:22)
[2021-06-12] MEDS: COLLAGENASE CLOSTRIDIUM HIST. 30 GRAMS TUBE TP SCH (16:50)
[2021-06-12] MEDS ORDERED: ACETAMINOPHEN 325 MG TABLET (FP) ONE (20:59)
[2021-06-12] MEDS: ATORVASTATIN CA 10 MG TABLET (FP) PO SCH (21:07)
[2021-06-13] MEDS: BANATROL PLUS POWDER PACKET PO SCH ×3 (05:41→22:08)
[2021-06-13] MEDS: INSULIN SLIDING SCALE (NOVOLOG) 1 VIAL SQ SCH ×4 (06:45→22:07)
[2021-06-13] MEDS ORDERED: PT OWN MED DRAWER 7, Y5N ONE ×4 (09:16→22:03)
[2021-06-13] MEDS: POTASSIUM CHLORIDE ORAL LIQUID 20 MEQ/15 ML PO SCH (09:23)
[2021-06-13] MEDS: MIDODRINE HCL 5 MG TABLET PO SCH ×3 (09:23→18:05)
[2021-06-13] MEDS: AMINO ACIDS/PROTEIN HYDROLYS 30 ML LIQUID.PKT PO SCH (09:23)
[2021-06-13] MEDS: PANTOPRAZOLE 20 MG TABLET PO SCH (09:23)
[2021-06-13] MEDS: FOLIC ACID 1 MG TABLET (FP) PO SCH (09:23)
[2021-06-13] MEDS: FUROSEMIDE 40 MG/4 ML INJECTABLE VIAL IVPUSH SCH (09:23)
[2021-06-13] MEDS: TAMSULOSIN HCL 0.4 MG CAP PO SCH (09:24)
[2021-06-13] MEDS: MIRTAZAPINE 15 MG TABLET (FP) PO SCH (09:24)
[2021-06-13] MEDS: MULTIVITAMINS THER W-MINERALS COMBO TABLET (FP) PO SCH (09:24)
[2021-06-13] MEDS: FINASTERIDE 5 MG TABLET (FP) PO SCH (09:24)
[2021-06-13] MEDS: FERROUS SO4 325 MG TABLET (FP) PO SCH (09:24)
[2021-06-13] MEDS: ASCORBIC ACID 500 MG TABLET (FP) PO SCH (09:24)
[2021-06-13] MEDS: URSODIOL 300 MG CAPSULE PO SCH ×2 (09:31→22:09)
[2021-06-13] MEDS: risperiDONE 1 MG TABLET PO SCH ×2 (09:31→22:08)
[2021-06-13] MEDS: COLLAGENASE CLOSTRIDIUM HIST. 30 GRAMS TUBE TP SCH (10:00)
[2021-06-13 16:19] VITALS: BMI 27.6
[2021-06-13] MEDS: ATORVASTATIN CA 10 MG TABLET (FP) PO SCH (22:07)
[2021-06-13] MEDS ORDERED: DIGOXIN 0.5 MG/2 ML AMPUL IVPUSH ONE (22:10)
[2021-06-14] MEDS ORDERED: PT OWN MED DRAWER 7, Y5N ONE ×5 (02:19→21:03)
[2021-06-14] MEDS: BANATROL PLUS POWDER PACKET PO SCH ×3 (05:55→21:32)
[2021-06-14] MEDS: INSULIN SLIDING SCALE (NOVOLOG) 1 VIAL SQ SCH ×4 (06:00→21:31)
[2021-06-14] MEDS: POTASSIUM CHLORIDE ORAL LIQUID 20 MEQ/15 ML PO SCH (09:25)
[2021-06-14] MEDS: FINASTERIDE 5 MG TABLET (FP) PO SCH (09:25)
[2021-06-14] MEDS: ASCORBIC ACID 500 MG TABLET (FP) PO SCH (09:25)
[2021-06-14] MEDS: TAMSULOSIN HCL 0.4 MG CAP PO SCH (09:26)
[2021-06-14] MEDS: FUROSEMIDE 40 MG/4 ML INJECTABLE VIAL IVPUSH SCH (09:26)
[2021-06-14] MEDS: MULTIVITAMINS THER W-MINERALS COMBO TABLET (FP) PO SCH (09:26)
[2021-06-14] MEDS: FOLIC ACID 1 MG TABLET (FP) PO SCH (09:26)
[2021-06-14] MEDS: MIRTAZAPINE 15 MG TABLET (FP) PO SCH (09:26)
[2021-06-14] MEDS: PANTOPRAZOLE 20 MG TABLET PO SCH (09:26)
[2021-06-14] MEDS: FERROUS SO4 325 MG TABLET (FP) PO SCH (09:26)
[2021-06-14] MEDS: MIDODRINE HCL 5 MG TABLET PO SCH ×3 (09:26→17:17)
[2021-06-14] MEDS: DIGOXIN 0.125 MG TABLET PO SCH (09:40)
[2021-06-14] MEDS: AMINO ACIDS/PROTEIN HYDROLYS 30 ML LIQUID.PKT PO SCH (09:40)
[2021-06-14] MEDS: URSODIOL 300 MG CAPSULE PO SCH ×2 (09:41→21:32)
[2021-06-14] MEDS: risperiDONE 1 MG TABLET PO SCH ×2 (09:41→22:22)
[2021-06-14] MEDS: COLLAGENASE CLOSTRIDIUM HIST. 30 GRAMS TUBE TP SCH (12:46)
[2021-06-14] MEDS: ATORVASTATIN CA 10 MG TABLET (FP) PO SCH (21:32)
[2021-06-15] MEDS: BANATROL PLUS POWDER PACKET PO SCH (05:41)
[2021-06-15] MEDS: INSULIN SLIDING SCALE (NOVOLOG) 1 VIAL SQ SCH ×2 (06:18→11:35)
[2021-06-15] MEDS ORDERED: PT OWN MED DRAWER 7, Y5N ONE (08:54)
[2021-06-15] MEDS: AMINO ACIDS/PROTEIN HYDROLYS 30 ML LIQUID.PKT PO SCH (08:59)
[2021-06-15] MEDS: POTASSIUM CHLORIDE ORAL LIQUID 20 MEQ/15 ML PO SCH (09:00)
[2021-06-15] MEDS: MIDODRINE HCL 5 MG TABLET PO SCH (09:01)
[2021-06-15] MEDS: risperiDONE 1 MG TABLET PO SCH (09:01)
[2021-06-15] MEDS: FUROSEMIDE 40 MG/4 ML INJECTABLE VIAL IVPUSH SCH (09:01)
[2021-06-15] MEDS: FERROUS SO4 325 MG TABLET (FP) PO SCH (09:01)
[2021-06-15] MEDS: DIGOXIN 0.125 MG TABLET PO SCH (09:02)
[2021-06-15] MEDS: URSODIOL 300 MG CAPSULE PO SCH (09:02)
[2021-06-15] MEDS: FINASTERIDE 5 MG TABLET (FP) PO SCH (09:03)
[2021-06-15] MEDS: MULTIVITAMINS THER W-MINERALS COMBO TABLET (FP) PO SCH (09:03)
[2021-06-15] MEDS: PANTOPRAZOLE 20 MG TABLET PO SCH (09:03)
[2021-06-15] MEDS: TAMSULOSIN HCL 0.4 MG CAP PO SCH (09:04)
[2021-06-15] MEDS: MIRTAZAPINE 15 MG TABLET (FP) PO SCH (09:04)
[2021-06-15] MEDS: ASCORBIC ACID 500 MG TABLET (FP) PO SCH (09:04)
[2021-06-15] MEDS: COLLAGENASE CLOSTRIDIUM HIST. 30 GRAMS TUBE TP SCH (09:05)
[2021-06-15] MEDS: FOLIC ACID 1 MG TABLET (FP) PO SCH (09:05)
[2021-06-15 15:19] VITALS: BP 104/86; PULSE 112; TEMP 98.2
== END 2021-06-15 14:30 | DRG 291 ==
LOC: JER 15:22 → JERBED 17:42 → J2W 06-03 16:10
PROVIDERS: ADMIT Internal Medicine; ATTEND Internal Medicine
DX: I13.0 Hypertensive heart and chronic kidney disease with heart failure and stage 1 through stage 4 chronic kidney disease, or unspecified chronic kidney disease (principal); L89.154 Pressure ulcer of sacral region, stage 4; I50.33 Acute on chronic diastolic (congestive) heart failure; R53.2 Functional quadriplegia; I48.92 Unspecified atrial flutter; N18.30 Chronic kidney disease, stage 3 unspecified; F31.9 Bipolar disorder, unspecified; F20.9 Schizophrenia, unspecified; I48.0 Paroxysmal atrial fibrillation; I25.119 Atherosclerotic heart disease of native coronary artery with unspecified angina pectoris; D69.6 Thrombocytopenia, unspecified; D64.9 Anemia, unspecified
CPT/HCPCS: 36415; 71045-TC-FY; 71250-TC; 80048; 80053; 81003; 82803; 82962; 83605; 83735; 83880; 84484; 85025; 85027; 87040; 93005; 93010; 99285-25; C9803; J1644; J1756; J2794; U0003; U0005